=== PATIENT | male | born 1935 | race Caucasian/White ===

== ENCOUNTER 2017-12-07 01:45 | Emergency (ER) | payer MEDICARE, SELFPAY ==
[2017-12-07 01:45] VITALS: BP 208/119; PULSE 69; RESP 18; TEMP 36.6; O2SAT 96; BMI 27.6
--- NOTE | 2017-12-07 01:59 | XR_ITS ---
XR chest 2V Ordering Physician: Reggie Shelley MD Patient Age: 82 years: Male HISTORY: ITS.REASON: CHEST PAIN TECHNIQUE: COMPARISON :December 2015 FINDINGS No significant change since prior studies. Stable chest. Trace thickening of fissures on lateral view. No pleural effusion or pneumothorax. Heart micheline and mediastinal structures satisfactory.. Chest wall unremarkable. Stable anterior marginal osteophytes & early degenerative changes T-spine IMPRESSION: Stable chest with nothing definitely acute.
--- NOTE | 2017-12-07 02:04 | [facility].EDCP ---
ED Disposition Clinical Impression: Musculoskeletal chest pain Shoulder pain Qualifiers: Chronicity: acute Laterality: left Qualified Code(s): M25.512 - Pain in left shoulder Hypertension Qualifiers: Hypertension type: essential hypertension Qualified Code(s): I10 - Essential (primary) hypertension Disposition: Home, Self-Care Condition on Discharge: Good Instructions: DI for Atypical Chest Pain, DI for Shoulder Pain, DI for High Blood Pressure Additional Instructions: Call your doctor today about your blood pressure. Ibuprofen ([id number]) for pain. Additional instructions for CHEST PAIN: See your physician as soon as possible for further evaluation. Return immediately if worsening chest pain, vomiting, shortness of breath, fever, coughing of blood. Referrals: Chris Patel MD [Primary Care Provider] - - Critical Care Critical Care Time: No Attestation: On , the high probability of a clinically significant, sudden or life threatening deterioration of the following system(s) required my full and direct attention, intervention and personal management. The time I documented below is in addition to time spent performing reported procedures but includes the following listed in this critical care notation. Medical Decision Making Vital Signs: 12/07/17 01:45 12/07/17 03:31 Temperature 97.9 F Temperature Source Oral Pulse Rate [Right Brachial] 69 60 Respiratory Rate 18 16 Blood Pressure [Right Arm] 208/119 191/94 Blood Pressure Mean [Right Arm] 148 126 Blood Pressure Source [Right Arm] Automatic Cuff Automatic Cuff Blood Pressure Position [Right Arm] Supine Supine 02 Sat by Pulse Oximetry 96 97 Oxygen Delivery Method Room Air Room Air - Lab Data Lab Results 12/07/17 02:00: WBC 9.8, RBC 4.44 L, Hgb 12.5 L, Hct 39.0 L, MCV 87.9, MCH 28.1, MCHC 31.9, RDW 12.9, Plt Count 244, MPV 7.3 L, Neut % (Auto) 59.0, Lymph % (Auto) 28.8, [place] % (Auto) 8.2, Eos % (Auto) 3.4, Baso % (Auto) 0.7, Neut # (Auto) 5.8, Lymph # (Auto) 2.8, [place] # (Auto) 0.8, Eos # (Auto) 0.3, Baso # (Auto) 0.1 12/07/17 02:00: Sodium 142, Potassium 3.9, Chloride 104, Carbon Dioxide 29, Anion Gap 12.9, BUN 20 H, Creatinine 1.33 H, Estimated Creat Clear 54, Estimated GFR 51 L, Est GFR ( Amer) 62, Glucose 127 H, Calcium 8.3 L, Total Bilirubin 0.4, AST 16, ALT 19, Alkaline Phosphatase 99, Total Creatine Kinase 51, CK-MB (CK-2) < 0.5, CK-MB (CK-2) Rel Index 1.0, Troponin I < 0.02, Total Protein 7.1, Albumin 3.5, Globulin 3.6 H, Albumin/Globulin Ratio 1.0 L Result diagrams: 12/07/17 02:00 12/07/17 02:00 Orders (Tests/Meds): ED MEDICATIONS Discontinued Medications Generic Name Dose Route Start Last Admin Trade Name Niallq PRN Reason Stop Dose Admin Aspirin 324 mg 12/07/17 02:01 12/07/17 02:04 Aspirin 81mg Chewable Tablet PO 12/07/17 02:02 324 mg ONCE ONE Administration Clonidine HCl 0.1 mg 12/07/17 02:50 12/07/17 02:51 Clonidine 0.1mg Tablet PO 12/07/17 02:51 0.1 mg ONCE ONE Administration Ketorolac Tromethamine 15 mg 12/07/17 02:47 12/07/17 02:50 Toradol 30mg/Ml Vial IV 12/07/17 02:48 15 mg ONCE ONE Administration ORDERS Category Date Time Status Shoulder XR left minimum 2 views [XR shoulder LT min 2V Exams 12/07/17 02:28 Taken ] Stat XR chest 2V Stat Exams 12/07/17 01:59 Taken 12-lead EKG Request [ECG Request by /Ariadne] Stat Y 12/07/17 01:59 Ordered - Radiology Data #2 Image(s): Chest, Shoulder Image Reviewed: Yes I reviewed the patient's radiology results Preliminary Findings: Normal/NAD X-ray interpreted by Reggie Shelley M.D.: Shoulder: Mild degenerative changes, no acute disease. - ECG Data Tracing #2 EKG interpreted by Reggie Shelley MD: Rhythm: sinus Rate: 66 [place]: normal Ectopy: none Conduction: normal ST Segment Changes: none T Wave Changes: none Q Waves: none No evidence of acute ischemia or injury Reversal of guillen
[2017-12-07 02:12] LABS: Basophils # 0.1 K/mm3 (0-0.2); Basophils % 0.7 % (0.1-2.0); Eosinophils # 0.3 K/mm3 (0.0-0.4); Eosinophils % 3.4 % (0.1-12.0); Hemoglobin 12.5 g/dL (14.1-18.0); Lymphocytes # 2.8 K/mm3 (0.7-4.5); Lymphocytes % 28.8 K/mm3 (10-50); Mean Corpuscular HGB Conc 31.9 g/dL (31.8-35.4); Mean Corpuscular Hemoglobin 28.1 pg (27.0-31.2); Mean Corpuscular Volume 87.9 fl (80-94); Mean Platelet Volume 7.3 fl (7.4-10.4); Monocytes # 0.8 K/mm3 (0.1-1.0); Monocytes % 8.2 % (1.7-9.3); Neutrophils # 5.8 K/mm3 (1.8-7.8); Platelet Count 244 K/mm3 (142-424); Red Blood Count 4.44 M/mm3 (4.60-6.20); Red Cell Distribution Width 12.9 % (11.5-17.5); White Blood Count 9.8 K/mm3 (4.8-10.8)
--- NOTE | 2017-12-07 02:28 | XR_ITS ---
XR shoulder LT min 2V Ordering Physician: Reggie Shelley MD Patient Age: 82 years: Male HISTORY: ITS.REAS left shoulder pain : pain TECHNIQUE: 3 views left shoulder COMPARISON : FINDINGS The left shoulder is intact with no fracture nor dislocation. There are degenerative changes at AC joint with mild degenerative changes at the glenohumeral joint. Humeral head and neck intact. Scapula left lung apex and upper left ribs intact. Mild degenerative changes C-spine noted IMPRESSION: . Mild degenerative changes at AC joint and glenohumeral joint. No acute findings at the left shoulder. No fracture nor dislocation
[2017-12-07 02:35] LABS: Alanine Aminotransferase 19 U/L (12-78); Albumin Level 3.5 gm/dL (3.4-5.0); Alkaline Phosphatase 99 U/L (46-116); Anion Gap 12.9 mEq/L (5-15); Aspartate Amino Transferase 16 U/L (15-37); Bilirubin,Total 0.4 mg/dL (0.2-1.0); Blood Urea Nitrogen 20 mg/dL (7-18); Calcium 8.3 mg/dL (8.5-10.1); Carbon Dioxide 29 mmol/L (21.0-32.0); Chloride 104 mmol/L (98-107); Creatine Kinase 51 U/L (39-308); Creatine Kinase MB < 0.5 mg/ml (0.0-3.6); Creatinine Clearance Estimated 54 mL/min (0-300); Creatinine,Serum 1.33 mg/dL (0.70-1.30); Estimated Glomerular Filt Rate 51 ml/min (>60); GFR (African American) 62 ML/MIN (>60); Globulin 3.6 gm/dl (1.3-3.2); Glucose 127 mg/dL (74-106); Potassium 3.9 mmoL/L (3.5-5.1); Sodium 142 mmol/L (136-145); Total Protein,Serum 7.1 gm/dL (6.4-8.2); Troponin I < 0.02 ng/ml (0.00-0.06)
[2017-12-07 03:31] VITALS: BP 191/94; PULSE 60; RESP 16; O2SAT 97
[2017-12-07 03:43] VITALS: BP 183/93; PULSE 80; RESP 18; O2SAT 97
== END 2017-12-07 03:48 | disposition home or self-care (01) ==
PROVIDERS: Emergency Provider Emergency Medicine; Family Provider Family Medicine; PCP Family Medicine
DX: R07.89 Other chest pain (principal); M25.512 Pain in left shoulder; I10 Essential (primary) hypertension; E11.9 Type 2 diabetes mellitus without complications; Z79.84 Long term (current) use of oral hypoglycemic drugs; Z79.02 Long term (current) use of antithrombotics/antiplatelets; Z79.899 Other long term (current) drug therapy
CPT/HCPCS: 71046; 73030; 80053; 82550; 82553; 84484; 85025; 93005; 96374; 96375; 99284

== ENCOUNTER 2018-03-13 06:14 | Observation (INO) ==
[2018-03-13 06:31] LABS: Basophils # 0.1 K/mm3 (0-0.2); Basophils % 0.8 % (0.1-2.0); Eosinophils # 0.2 K/mm3 (0.0-0.4); Eosinophils % 3.7 % (0.1-12.0); Hematocrit 37.8 % (42.0-52.0); Hemoglobin 12.5 g/dL (14.1-18.0); Lymphocytes # 1.6 K/mm3 (0.7-4.5); Lymphocytes % 24.8 K/mm3 (10-50); Mean Corpuscular Hemoglobin 29.4 pg (27.0-31.2); Mean Platelet Volume 7.4 fl (7.4-10.4); Monocytes # 0.5 K/mm3 (0.1-1.0); Monocytes % 7.1 % (1.7-9.3); Neutrophils # 4.1 K/mm3 (1.8-7.8); Neutrophils % 63.6 % (37.0-80.0); Platelet Count 274 K/mm3 (142-424); Red Blood Count 4.24 M/mm3 (4.60-6.20); White Blood Count 6.5 K/mm3 (4.8-10.8)
--- NOTE | 2018-03-13 06:35 | Emergency Department Note ---
ED Disposition Clinical Impression: Precordial chest pain Disposition: Still a Patient Condition on Discharge: Good - Critical Care Critical Care Time: No Attestation: On , the high probability of a clinically significant, sudden or life threatening deterioration of the following system(s) required my full and direct attention, intervention and personal management. The time I documented below is in addition to time spent performing reported procedures but includes the following listed in this critical care notation. Medical Decision Making - [place] Inquiry Pt receiving controlled substance: No Vital Signs: 03/13/18 06:15 Temperature 98.7 F Temperature Source Oral Pulse Rate [Right Radial] 62 Respiratory Rate 16 Blood Pressure [Right Arm] 170/85 Blood Pressure Mean [Right Arm] 113 Blood Pressure Source [Right Arm] Automatic Cuff Blood Pressure Position [Right Arm] Standing 02 Sat by Pulse Oximetry 99 Oxygen Delivery Method Room Air - Lab Data Lab Results 03/13/18 06:20: WBC 6.5, RBC 4.24 L, Hgb 12.5 L, Hct 37.8 L, MCV 89.0, MCH 29.4 , MCHC 33.0, RDW 13.0, Plt Count 274, MPV 7.4, Neut % (Auto) 63.6, Lymph % (Auto ) 24.8, [place] % (Auto) 7.1, Eos % (Auto) 3.7, Baso % (Auto) 0.8, Neut # (Auto) 4.1, Lymph # (Auto) 1.6, [place] # (Auto) 0.5, Eos # (Auto) 0.2, Baso # (Auto) 0.1 03/13/18 06:20: Sodium 142, Potassium 3.7, Chloride 104, Carbon Dioxide 32, Anion Gap 9.7, BUN 15, Creatinine 1.34 H, Estimated Creat Clear 51, Estimated GFR 51 L, Est GFR ( Amer) 62, Glucose 149 H, Calcium 8.7, Total Bilirubin 0.4, AST 15, ALT 12, Alkaline Phosphatase 82, Troponin I < 0.02, Total Protein 7.0, Albumin 3.2 L, Globulin 3.8 H, Albumin/Globulin Ratio 0.8 L, Amylase 41, Lipase 152 Result diagrams: 03/13/18 06:20 03/13/18 06:20 Orders (Tests/Meds): ED MEDICATIONS Discontinued Medications Generic Name Dose Route Start Last Admin Trade Name Freq PRN Reason Stop Dose Admin Aspirin 324 mg 03/13/18 06:22 03/13/18 06:23 Aspirin 81mg Chewable Tablet PO 03/13/18 06:23 324 mg ONCE ONE Administration Hyoscyamine 0.125 mg 03/13/18 07:07 Levsin 0.125mg Tablet PO 03/13/18 07:08 ONCE ONE ORDERS Category Date Time Status XR chest portable Stat Exams 03/13/18 06:22 Taken Urinalysis and Microscopic Stat Lab 03/13/18 07:10 Ordered - Radiology Data #1 Image(s): Chest Image Reviewed: Yes I reviewed the patient's radiology image Preliminary Findings: Normal/NAD - ECG Data Tracing #1 EKG interpreted by Reggie Shelley MD: Rhythm: sinus Rate: 60 [place]: normal Ectopy: none Conduction: normal ST Segment Changes: none T Wave Changes: none Q Waves: none No evidence of acute ischemia or injury - Reevaluation(s) Time: 07:00 Reevaluation #1: Complains of 4/10 pain in his epigastrium, nontender to palpation. However, before I left the room the pain had already completely resolved. Medical Decision Narrative: 7:05 AM: I have discussed the case with Dr. Patel who prefers to admit the patient to the hospital. We discussed the patient's clinical information, including history, exam, laboratory and radiology results and ED course. Per hospital procedure, I will write temporary bridge inpatient orders on the patient. Specific orders requested by the admitting physician: Hyoscyamine 0.125 mg p.o. 1, serial cardiac enzymes, bland diet General Adult HPI - General Chief complaint: Chest Pain Stated complaint: chest pain Time Seen by Provider: 03/13/18 06:30 Mode of Arrival: Ambulatory Limitations: No Limitations Description of Symptoms (Recalled from ER Triage Doc. by RN): chest pain started at 10pm, feels like a heart burn and has had epigastric pressure since. no relief from maalox, current use of hydrocodone and clinda for dental infection - History of Present Illness HPI narrative: Intermittent chest pain in the area of his left breast since 10 PM last night. Lasts a few minutes at a time. Describes it in different ways, says it felt like somebody was sitting on his chest, but also says it felt like heartburn and like he needed to belch. Took some Maalox without relief. Denies shortness of breath, nausea, diaphoresis, or radiation. States he was also here for chest pain a few months ago and they "cleared my heart". States last stress test was years ago. Denies any known heart problems. Currently not having pain. - Related Data Home Medications Medication Instructions Recorded Confirmed Clopidogrel Bisulfate [Plavix 75mg 75 mg PO DAILY 12/07/17 03/13/18 Tab] Doxazosin Mesylate [Cardura 8mg 8 mg PO DAILY 12/07/17 03/13/18 Tab] Glimepiride [Amaryl] 2 mg PO DAILY 12/07/17 03/13/18 LORazepam [Ativan 0.5mg tablet] 0.5 mg PO TID 12/07/17 03/13/18 Metformin HCl [Metformin 500mg 500 mg PO BID 12/07/17 03/13/18 Tablet] Metoprolol Succinate [Toprol XL 50 mg PO DAILY 12/07/17 03/13/18 50mg Tablet] Sertraline HCl [Zoloft] 50 mg PO DAILY 12/07/17 03/13/18 Clindamycin HCl [Clindamycin 300mg 300 mg PO TID 03/13/18 03/13/18 Cap] Hydrocod/Acet 5/325 mg [[place] 0.5 tab PO Q4HP PRN 03/13/18 03/13/18 5/325mg tablet] Previous Rx's Medication Instructions Recorded Chlorhexidine Gluconate [Peridex] 15 ml PO BID #240 ml 03/09/18 Allergies Allergy/AdvReac Type Severity Reaction Status Date / Time Penicillins Allergy Intermediate I-HIVES Verified 03/13/18 06:28 Sulfa (Sulfonamide Allergy Intermediate SORES IN Verified 03/13/18 06:28 Antibiotics) MOUTH [facility] History I have reviewed the patient's past medical history: Yes Medical History: Reports:: Diabetes Mellitus Type 2, Hypertension Denies:: Cancer, Diabetes Mellitus Type 1, MRSA Comment: Seen by me in this emergency department on 12/07/17 for musculoskeletal left shoulder pain. Cardiac workup negative in the ED. Last stress test here was a normal Cardiolite stress test on 03/03/16. Other Surgeries: Yes: Hernia Repair, Other (tooth extraction) Amputation: No Fractures: No - Social History Smoking Status: Never smoker Alcohol Intake: never - Psychiatric History Expresses thoughts of harming self/others: None Suicide Plan Description: No Plan ROS Obtained: Yes All systems reviewed & no additional complaints - Constitutional Constitutional: Denies fever(s) - Cardiovascular Cardiovascular: Reports chest pain, Denies diaphoresis - Respiratory Respiratory: No dyspnea - Gastrointestinal Gastrointestingal: Denies: abdominal pain, nausea, vomiting - Genitourinary Male Genitourinary: Reports urinary frequency (2-3 wks - states "having prostate problems") Physical Exam - General General appearance: alert, in no apparent distress - Head Head exam: atraumatic, normocephalic, normal inspection - Eye Eye exam: Present: normal appearance, PERRL, EOMI - ENT ENT exam: Present: normal exam, normal oropharynx, mucous membranes moist, TM's normal bilaterally, normal external ear exam - Neck Neck exam: Present: normal inspection, full ROM, trachea midline. Absent: meningismus, lymphadenopathy - Chest Chest inspection: Present: normal inspection, symmetric chest wall rise. Absent : tenderness - Respiratory Respiratory exam: Present: normal lung sounds bilaterally. Absent: respiratory distress - Cardiovascular Cardiovascular exam: Present: regular rate, normal rhythm. Absent: JVD - Abdominal Exam Abdominal exam: Present: soft, normal bowel sounds. Absent: distention, tenderness, guarding - Extremities Exam Extremities exam: Present: normal inspection, full ROM, normal capillary refill. Absent: calf tenderness - Neurological Exam Neurological exam: Present: alert, oriented X3 - Psychiatric Psychiatric exam: Present: normal affect, normal mood - Skin Skin exam: Present: warm, dry, intact, normal color
[2018-03-13 06:48] LABS: Alanine Aminotransferase 12 U/L (12-78); Albumin Level 3.2 gm/dL (3.4-5.0); Albumin/Globulin Ratio 0.8 (1.1-1.8); Alkaline Phosphatase 82 U/L (46-116); Amylase 41 U/L (25-125); Anion Gap 9.7 mEq/L (5-15); Aspartate Amino Transferase 15 U/L (15-37); Bilirubin,Total 0.4 mg/dL (0.2-1.0); Blood Urea Nitrogen 15 mg/dL (7-18); Calcium 8.7 mg/dL (8.5-10.1); Carbon Dioxide 32 mmol/L (21.0-32.0); Chloride 104 mmol/L (98-107); Globulin 3.8 gm/dl (1.3-3.2); Glucose 149 mg/dL (74-106); Lipase 152 u/L (73-393); Potassium 3.7 mmoL/L (3.5-5.1); Sodium 142 mmol/L (136-145)
--- NOTE | 2018-03-13 08:54 | History & Physical Report ---
*Admission Date: 03/13/18 *Chief complaint: chest pain and heart burn *History of present illness: Mr. De La Cruz is an 83-year-old male with a history of hypertension, anxiety, BPH , GERD, and type 2 diabetes. He states he had a tooth pulled due to infection approximately a week ago. At that time, he was placed on clindamycin 3 times a day as well as Lortab. He states this is when all of his problems started. He has had some constipation and last night had severe heartburn before he was about to go to bed. He states he then began having chest pain that would come and go and radiated from the left side of his chest to the right chest. He went to sleep but did not sleep well due to the pain. At 6 AM this morning he decided to come to the emergency room for evaluation. He was evaluated and admitted for serial enzymes. He was given some hyoscyamine in the ER and he states this helped slightly. [facility] History Medical History: Reports:: Anxiety, BPH, Diabetes Mellitus Type 2, Gastroesophageal Reflux Disease(GERD), Hypertension, Pulmonary Embolism Denies:: Cancer, Diabetes Mellitus Type 1, MRSA Laterality Cases: Bilateral: Cataract Other Surgeries: Yes: Cholecystectomy, Colonoscopy, Hernia Repair, Other (tooth extraction) Amputation: No Fractures: No - *Social History Educational Level: Completed GED/General Educational Development Smoking Status: Never smoker Alcohol Intake: never Occupational Status: retired Housing: house Household Members: spouse - Psychiatric History Expresses thoughts of harming self/others: None Suicide Plan Description: No Plan *Family Hx:: Coronary Artery Disease, Diabetes, Heart Attack Review of Systems - Constitutional Reports fatigue, Reports weakness, Denies fever(s), Denies headache(s) - Eyes Denies blurry vision, Denies double vision - ENT Reports dizziness, Reports nasal congestion, Denies sore throat - *Cardiovascular Reports chest pain, Reports fast heart rate - *Respiratory Denies cough, Denies shortness of breath - *Gastrointestinal Reports abdominal pain (epigastric), Reports constipation, Denies loose stools, Denies nausea, Denies vomiting - *Genitourinary Reports difficulty urinating, Denies painful urination - *Musculoskeletal Denies joint pain - *Neurologic Reports dizziness, Reports weakness Meds Home Medications Medication Instructions Recorded Confirmed Type Clopidogrel Bisulfate [Plavix 75mg 75 mg PO DAILY 12/07/17 03/13/18 History Tab] Doxazosin Mesylate [Cardura 8mg 8 mg PO DAILY 12/07/17 03/13/18 History Tab] Glimepiride [Amaryl] 2 mg PO DAILY 12/07/17 03/13/18 History LORazepam [Ativan 0.5mg tablet] 0.5 mg PO TID 12/07/17 03/13/18 History Metformin HCl [Metformin 500mg 500 mg PO BID 12/07/17 03/13/18 History Tablet] Metoprolol Succinate [Toprol XL 50 mg PO DAILY 12/07/17 03/13/18 History 50mg Tablet] Sertraline HCl [Zoloft] 50 mg PO DAILY 12/07/17 03/13/18 History Clindamycin HCl [Clindamycin 300mg 300 mg PO TID 03/13/18 03/13/18 History Cap] Hydrocod/Acet 5/325 mg [[place] 0.5 tab PO Q4HP PRN 03/13/18 03/13/18 History 5/325mg tablet] Allergies Allergy/AdvReac Type Severity Reaction Status Date / Time Penicillins Allergy Intermediate I-HIVES Verified 03/13/18 06:28 Sulfa (Sulfonamide Allergy Intermediate SORES IN Verified 03/13/18 06:28 Antibiotics) MOUTH Exam Vital signs and Labs for Last 24 Hours: Temp Pulse Resp BP Pulse Ox 98.3 F 75 18 142/80 99 03/13/18 08:17 03/13/18 08:17 03/13/18 08:17 03/13/18 08:17 03/13/18 06:15 Laboratory Results - last 24 hr 03/13/18 06:20: WBC 6.5, RBC 4.24 L, Hgb 12.5 L, Hct 37.8 L, MCV 89.0, MCH 29.4 , MCHC 33.0, RDW 13.0, Plt Count 274, MPV 7.4, Neut % (Auto) 63.6, Lymph % (Auto ) 24.8, [place] % (Auto) 7.1, Eos % (Auto) 3.7, Baso % (Auto) 0.8, Neut # (Auto) 4.1, Lymph # (Auto) 1.6, [place] # (Auto) 0.5, Eos # (Auto) 0.2, Baso # (Auto) 0.1 03/13/18 06:20: Sodium 142, Potassium 3.7, Chloride 104, Carbon Dioxide 32, Anion Gap 9.7, BUN 15, Creatinine 1.34 H, Estimated Creat Clear 51, Estimated GFR 51 L, Est GFR ( Amer) 62, Glucose 149 H, Calcium 8.7, Total Bilirubin 0.4, AST 15, ALT 12, Alkaline Phosphatase 82, Troponin I < 0.02, Total Protein 7.0, Albumin 3.2 L, Globulin 3.8 H, Albumin/Globulin Ratio 0.8 L, Amylase 41, Lipase 152 03/13/18 08:00: Troponin I < 0.02 I & O for Last 24 hours: Intake & Output 03/10/18 03/11/18 03/12/18 03/13/18 11:59 11:59 11:59 11:59 Weight 192 lb - Constitutional no acute distress - *Routine HEENT Exam Head: Present: normocephalic, atraumatic Eye: Present: EOMI, PERRL ENT: Present: mucous membranes moist - *Routine Neck Exam Present: supple, full ROM - *Routine Respiratory Exam Present: CTA bilaterally - *Routine Cardiovascular Exam Present: RRR - *Routine Abdominal Exam Present: soft, normoactive bowel sounds. Absent: tenderness - *Routine Extremities Exam Absent: edema - *Routine Skin Exam Present: intact - *Routine Neurological Exam Present: alert, oriented X3 H&P: Result - Labs Labs: Short CBC 03/13/18 Range/Units 06:20 WBC 6.5 (4.8-10.8) K/mm3 Hgb 12.5 L (14.1-18.0) g/dL Hct 37.8 L (42.0-52.0) % Plt Count 274 (142-424) K/mm3 BMP 03/13/18 06:20 Sodium 142 Potassium 3.7 Chloride 104 Carbon Dioxide 32 BUN 15 Creatinine 1.34 H Glucose 149 H Calcium 8.7 Cardiac Enzymes 03/13/18 03/13/18 Range/Units 06:20 08:00 Troponin I < 0.02 < 0.02 (0.00-0.06) ng/ml Liver Function 03/13/18 Range/Units 06:20 Total Bilirubin 0.4 (0.2-1.0) mg/dL AST 15 (15-37) U/L ALT 12 (12-78) U/L Alkaline Phosphatase 82 (46-116) U/L Albumin 3.2 L (3.4-5.0) gm/dL - Impressions CXR - pending Assessment and Plan (1) Precordial chest pain Current visit: Yes Status: Acute Category: Medical Code(s): R07.2 - Precordial pain (2) GERD (gastroesophageal reflux disease) Current visit: Yes Status: Chronic Category: Medical Code(s): K21.9 - Gastro-esophageal reflux disease without esophagitis (3) Anxiety Current visit: Yes Status: Chronic Category: Medical Code(s): F41.9 - Anxiety disorder, unspecified (4) Type 2 diabetes mellitus Current visit: Yes Status: Chronic Category: Medical Code(s): E11.9 - Type 2 diabetes mellitus without complications (5) History of pulmonary embolism Current visit: Yes Status: Chronic Category: Medical Code(s): Z86.711 - Personal history of pulmonary embolism (6) Hypertension Current visit: No Status: Chronic Category: Medical Code(s): I10 - Essential (primary) hypertension (7) S/P tooth extraction Current visit: No Status: Acute Category: Surgical Code(s): K08.409 - Partial loss of teeth, unspecified cause, unspecified class - Assessment and plan all Dx Assessment and Plan for all problems:: Will give patient a dose of protonix today. His chest pain appears to be due to an episode of GERD. He has been on clindamycin as well as Lortab for the past week which could easily cause GI upset. Will await serial enzymes.
--- NOTE | 2018-03-13 13:50 | Pharmacy Consult Notes ---
[facility] Pharmacy VTE Monitoring - Patient Demographics Admission date: 03/13/18 Report Date: 03/13/18 Time: 13:50 Allergies/Adverse Reactions: Patient Allergies Penicillins Allergy (Intermediate, Verified 03/13/18 06:28) I-HIVES Sulfa (Sulfonamide Antibiotics) Allergy (Intermediate, Verified 03/13/18 06:28) SORES IN MOUTH Height: 1.8 m Weight: 89.811 kg Patient Problems: Current Active Problems Precordial chest pain (Acute) GERD (gastroesophageal reflux disease) (Chronic) Anxiety (Chronic) Type 2 diabetes mellitus (Chronic) History of pulmonary embolism (Chronic) - VTE Risk Labs: VTE Related Lab Results Hgb 12.5 g/dL (14.1-18.0) L 03/13/18 06:20 Hct 37.8 % (42.0-52.0) L 03/13/18 06:20 Plt Count 274 K/mm3 (142-424) 03/13/18 06:20 BUN 15 mg/dL (7-18) 03/13/18 06:20 Creatinine 1.34 mg/dL (0.70-1.30) H 03/13/18 06:20 Estimated Creat Clear 51 mL/min (0-300) 03/13/18 06:20 VTE Score: 1 VTE Risk Level: Very Low Risk - Prophylaxis Location of Applied Device: Refused - VTE Diagnosis Confirmed Comment: VAIBHAV HOFFMAN ORDERED
[2018-03-13 20:54] LABS: Appearance,Urine CLEAR (Clear); Bilirubin,Urine Negative (Negative); Blood, Urine TRACE-L (Negative); Color,Urine YELLOW (Yellow); Glucose,Urine (UA) Negative (Negative); Ketones,Urine Negative (Negative); Leukocyte Esterase,Urine Negative (Negative); Microscopic, Urine URINE MICROSCOPIC (MICROSCOPIC); Protein,Urine Negative (Negative); Urobilinogen,Urine 0.2 EU/dl (0.2)
--- NOTE | 2018-03-14 07:57 | Progress Note ---
Internal Medicine - PN: Subj *Date: 03/14/18 *Time: 07:57 Interval history: Rested well. No complaint of chest pain or SOA. He thinks his symptoms are GI in origin Exam Vital signs and Labs for Last 24 Hours: Temp Pulse Resp BP Pulse Ox 98.4 F 60 20 148/90 96 03/14/18 07:33 03/14/18 07:33 03/14/18 07:33 03/14/18 07:33 03/14/18 07:33 Laboratory Results - last 24 hr 03/13/18 08:00: Troponin I < 0.02 03/13/18 10:45: Troponin I 0.02 03/13/18 12:18: POC Glucose 213 H 03/13/18 13:46: Troponin I < 0.02 03/13/18 17:19: POC Glucose 159 H 03/13/18 19:55: POC Glucose 157 H 03/13/18 20:45: Urine Color Yellow, Urine Appearance Clear, Urine pH 7.0, Ur Specific [place] 1.010, Urine Protein Negative, Urine Glucose (UA) Negative, Urine Ketones Negative, Urine Blood Trace-l, Urine Nitrate Negative, Urine Bilirubin Negative, Urine Urobilinogen 0.2, Ur Leukocyte Esterase Negative, Urine RBC 5-10 03/14/18 05:43: POC Glucose 131 H I & O for Last 24 hours: Intake & Output 03/11/18 03/12/18 03/13/18 03/14/18 11:59 11:59 11:59 11:59 Intake Total 150 / 150 Output Total 200 / 200 Balance -50 / -50 Weight 198 lb 198 lb - Constitutional Comments: sitting up in chair, NAD. - *Routine Respiratory Exam Present: CTA bilaterally - *Routine Cardiovascular Exam Present: RRR - *Routine Extremities Exam Absent: edema Assessment and Plan (1) Precordial chest pain Status: Acute Category: Medical Code(s): R07.2 - Precordial pain (2) GERD (gastroesophageal reflux disease) Status: Chronic Category: Medical Code(s): K21.9 - Gastro-esophageal reflux disease without esophagitis (3) Anxiety Status: Chronic Category: Medical Code(s): F41.9 - Anxiety disorder, unspecified (4) Type 2 diabetes mellitus Status: Chronic Category: Medical Code(s): E11.9 - Type 2 diabetes mellitus without complications (5) History of pulmonary embolism Status: Chronic Category: Medical Code(s): Z86.711 - Personal history of pulmonary embolism (6) Hypertension Status: Chronic Category: Medical Code(s): I10 - Essential (primary) hypertension (7) S/P tooth extraction Status: Acute Category: Surgical Code(s): K08.409 - Partial loss of teeth, unspecified cause, unspecified class - Assessment and plan all Dx Assessment and Plan for all problems:: He is stable for discharge today and will return to [facility] tomorrow for GXT as arranged by Dr. Patel
--- NOTE | 2018-03-15 15:20 | Discharge Summary ---
General - General Admission date:: 03/13/18 <SupriyaMisael Sotero - 03/21/18 11:21> 03/13/18 <Meg Khan - 03/15/18 15:20> Discharge date: 03/14/18 <Meg Khan - 03/15/18 15:20> HPI HPI: Mr. De La Cruz is an 83-year-old male with a history of hypertension, anxiety, BPH , GERD, and type 2 diabetes. He states he had a tooth pulled due to infection approximately a week ago. At that time, he was placed on clindamycin 3 times a day as well as Lortab. He states this is when all of his problems started. He has had some constipation and last night had severe heartburn before he was about to go to bed. He states he then began having chest pain that would come and go and radiated from the left side of his chest to the right chest. He went to sleep but did not sleep well due to the pain. At 6 AM this morning he decided to come to the emergency room for evaluation. He was evaluated and admitted for serial enzymes. He was given some hyoscyamine in the ER and he states this helped slightly. <Meg Khan - 03/15/18 15:20> Hospital Course Hospital Course: His CXR was normal and cardiac enzymes were normal. He was started on levsin and protonix as his pain appeared to be GI in nature. He had been on clindamycin as well as Lortab which could easily cause GI upset. His chest pain resolved and he was stable to be discharged home and will f/u on for a stress test. <Meg Khan - 03/15/18 15:20> Objective Vital signs: Temp Pulse Resp BP Pulse Ox 98.4 F 60 20 148/90 96 03/14/18 07:33 03/14/18 08:00 03/14/18 07:33 03/14/18 07:33 03/14/18 07:33 <Misael Epps - 03/21/18 11:21> Temp Pulse Resp BP Pulse Ox 98.4 F 60 20 148/90 96 03/14/18 07:33 03/14/18 08:00 03/14/18 07:33 03/14/18 07:33 03/14/18 07:33 <Meg Khan - 03/15/18 15:20> Narrative: - Constitutional no acute distress - *Routine HEENT Exam Head: Present: normocephalic, atraumatic Eye: Present: EOMI, PERRL ENT: Present: mucous membranes moist - *Routine Neck Exam Present: supple, full ROM - *Routine Respiratory Exam Present: CTA bilaterally - *Routine Cardiovascular Exam Present: RRR - *Routine Abdominal Exam Present: soft, normoactive bowel sounds. Absent: tenderness - *Routine Extremities Exam Absent: edema - *Routine Skin Exam Present: intact - *Routine Neurological Exam Present: alert, oriented X3 <Meg Khan - 03/15/18 15:20> DS: Diagnosis - Discharge Diagnosis (1) Precordial chest pain Status: Resolved (2) GERD (gastroesophageal reflux disease) Status: Chronic (3) Anxiety Status: Chronic (4) Type 2 diabetes mellitus Status: Chronic (5) History of pulmonary embolism Status: Chronic (6) Hypertension Status: Chronic (7) S/P tooth extraction Status: Acute <Meg Khan - 03/15/18 15:15> (1) Precordial chest pain Status: Resolved (2) GERD (gastroesophageal reflux disease) Status: Chronic (3) Anxiety Status: Chronic (4) Type 2 diabetes mellitus Status: Chronic (5) History of pulmonary embolism Status: Chronic (6) Hypertension Status: Chronic (7) S/P tooth extraction Status: Acute <Misael Epps - 03/21/18 11:21> Discharge Plan - Patient Discharge Instructions ACTIVITY: Continue current activity <Meg Khan - 03/15/18 15:20> DIET: continue same diet <Meg Khan - 03/15/18 15:20> Additional Instructions: RETURN TO [place] ON Thursday03/15/18 FOR OUTPATIENT STRESS TEST <Misael Epps - 03/21/18 11:21> Patient Instructions: DI for Gastroesophageal Reflux Disease (GERD) <Misael Epps - 03/21/18 11:21> Forms: <Misael Epps - 03/21/18 11:21> - Follow up Plan Follow up with: Chris Patel MD [Primary Care Provider] - 03/17/18 < Misael Epps - 03/21/18 11:21> Disposition: Home, Self-Care <Misael Epps - 03/21/18 11:21> Home Medications: Home Medications Medication Instructions Recorded Confirmed Type Clopidogrel Bisulfate [Plavix 75mg 75 mg PO DAILY 12/07/17 03/13/18 History Tab] Glimepiride [Amaryl] 2 mg PO DAILY 12/07/17 03/13/18 History LORazepam [Ativan 0.5mg tablet] 0.5 mg PO TID 12/07/17 03/13/18 History Metoprolol Succinate [Toprol XL 50 mg PO DAILY 12/07/17 03/13/18 History 50mg Tablet] Sertraline HCl [Zoloft] 50 mg PO DAILY 12/07/17 03/13/18 History Doxazosin Mesylate [Cardura 4mg 4 mg PO DAILY 03/13/18 03/13/18 History tablet] Hydrocod/Acet 5/325 mg [[place] 0.5 tab PO Q4HP PRN 03/13/18 03/13/18 History 5/325mg tablet] Metformin HCl 1,000 mg PO BID 03/13/18 03/13/18 History <Misael Epps - 03/21/18 11:21> Prescriptions/Medication Reconciliation: Continue Clopidogrel Bisulfate [Plavix 75mg Tab] 75 mg PO DAILY Metoprolol Succinate [Toprol XL 50mg Tablet] 50 mg PO DAILY Sertraline HCl [Zoloft] 50 mg PO DAILY LORazepam [Ativan 0.5mg tablet] 0.5 mg PO TID Glimepiride [Amaryl] 2 mg PO DAILY Chlorhexidine Gluconate [Peridex] 15 ml PO BID #240 ml Doxazosin Mesylate [Cardura 4mg tablet] 4 mg PO DAILY Hydrocod/Acet 5/325 mg [[place] 5/325mg tablet] 0.5 tab PO Q4HP PRN PRN Reason: dental pain Metformin HCl 1,000 mg PO BID Discontinued Clindamycin HCl [Clindamycin 300mg Cap] 300 mg PO TID <Misael Epps - 03/21/18 11:21> - Additional Information Additional Information: Concur with plan for discharge as outlined. <Misael Epps - 03/21/18 11:21>
== END 2018-03-14 08:55 | disposition home or self-care (01) ==
LOC: ER 06:14 → 2ND 06:14
PROVIDERS: ADMIT Family Medicine; ATTEND Family Medicine
CPT/HCPCS: 36415; 71010; 71045; 80053; 81001; 82150; 82962; 83690; 84484; 85025; 93005; 96365; 99284; G0378

== ENCOUNTER → 2018-03-15 10:54 | Outpatient (CLI) | payer MEDICARE, SELFPAY ==
--- NOTE | 2018-03-15 12:00 | NM_ITS ---
SPECT MYOCARDIAL PERFUSION SCAN, REST AND STRESS: EXERCISE STRESS: [facility] REVIEW QGS EF AND WALL MOTION EVALUATION: QPS - PERFUSION EVALUATION: HISTORY: Chest pain, Syncope, Fatigue, HTN, DM PROCEDURE: Rest imaging performed after administration of9.61 millicuries Tc MIBI. Dose administered at11:35 a.m., with imaging thereafter. Stress imaging was then performed following5 minutes 15 seconds of exercise stress. The patient achieved a heart [id number] with projected heart rate of116 . Resting BP171/94 with stress 188/80. At maximum exercise stress,29.0 millicuries Tc MIBI administered at12:55 a.m. with [id number] minutes thereafter. FINDINGS: Perfusion Evaluation: The single slice spect images as well as the [facility] bull's-eye data summary were reviewed. Wall Motion and Ejection Fraction Evaluation: Gated SPECT review and analysis used to evaluate these features. There is a 62 % left ventricular ejection fraction. There seems to be good wall motion Uniform myocardial activity at both stress and rest. Gated images calculated ejection fraction 62% with normal wall motion IMPRESSION: No scintigraphic evidence of exercise-induced myocardial ischemia with normal ejection fraction normal wall motion
--- NOTE | 2018-03-15 12:43 | HMH.ITSHM ---
LEVAQUIN WARFARIN RANOLAZINE POTASSIUM PANTOPRAZOLE LEVOTHYROXINE FUROSEMIDE DULOXETINE DILTIAZEM VITAMIN D3 BISOPROLOL ALPRAZOLAM DIGOXIN
== END ==
PROVIDERS: PCP Family Medicine; Visit Provider Family Medicine
DX: R07.9 Chest pain, unspecified (principal)
CPT/HCPCS: 78452; 93017; A9502

== ENCOUNTER → 2018-03-26 09:28 | Outpatient (CLI) | payer MEDICARE, SELFPAY ==
--- NOTE | 2018-03-26 09:39 | FL_ITS ---
EXAM: Barium swallow/esophagram. INDICATION: ITS.REASON: DYSPHAGIA ORDERING PHYSICIAN: Chris Patel MD PATIENT AGE: 83 years COMPARISON: None TECHNIQUE: In the upright position the patient was observed to swallow barium in both the AP and lateral view. The cervical esophagus was examined under fluoroscopy with images obtained. The patient was then placed prone in the right anterior oblique position and was observed to swallow barium with Valsalva technique . FLUOROSCOPY TIME: 1 minute and 8 seconds FINDINGS: There was no evidence of aspiration. No annular constricting lesions or fixed filling defects are evident. There is spasm of the GE junction was relieved during the course of the exam. No evidence of hiatal hernia. No mucosal lesions apparent IMPRESSION: Spasm at the GE junction otherwise negative barium swallow
== END ==
PROVIDERS: Family Provider Family Medicine; PCP Family Medicine; Visit Provider Family Medicine
DX: R13.10 Dysphagia, unspecified (principal)
CPT/HCPCS: 74220

== ENCOUNTER → 2018-06-30 15:48 | Outpatient (CLI) | payer MEDICARE, SELFPAY ==
--- NOTE | 2018-06-30 16:01 | XR_ITS ---
XR hip LT 2-3V w/pelvis HISTORY: ITS.REASON: LEFT HIP PAIN ORDERING PHYSICIAN: Chris Patel MD PATIENT AGE: 83 years COMPARISON: None FINDINGS: No fracture or dislocation is evident. No significant degenerative change. No lytic or blastic change. Unremarkable soft tissues IMPRESSION: Negative hip
== END ==
PROVIDERS: PCP Family Medicine; Visit Provider Family Medicine
DX: M25.552 Pain in left hip (principal)
CPT/HCPCS: 73502

== ENCOUNTER 2019-02-27 11:56 | Observation (INO) ==
--- NOTE | 2019-02-27 12:06 | Emergency Department Note ---
ED Disposition Clinical Impression: Chest pain Qualifiers: Chest pain type: precordial pain Qualified Code(s): R07.2 - Precordial pain Disposition: Admitted as Observation Condition on Discharge: Good - Critical Care Critical Care Time: No Attestation: On , the high probability of a clinically significant, sudden or life threatening deterioration of the following system(s) required my full and direct attention, intervention and personal management. The time I documented below is in addition to time spent performing reported procedures but includes the following listed in this critical care notation. Medical Decision Making - Medical Records Medical records reviewed: Yes: I reviewed the patient's medical records. - Henrique Inquiry Pt receiving controlled substance: No Vital Signs: 02/27/19 12:04 02/27/19 12:26 02/27/19 13:00 Temperature 98.0 F Temperature Source Oral Pulse Rate [Left Radial] 95 H 78 72 Respiratory Rate 18 16 18 Blood Pressure [Right Arm] 118/72 120/75 127/74 Blood Pressure Mean [Right Arm] 87 90 91 Blood Pressure Source [Right Arm] Automatic Cuff Automatic Cuff Automatic Cuff Blood Pressure Position [Right Arm] Sitting Sitting Sitting 02 Sat by Pulse Oximetry 96 93 L 95 Oxygen Delivery Method Room Air Room Air Room Air 02/27/19 13:30 Temperature Temperature Source Pulse Rate [Left Radial] 66 Respiratory Rate 18 Blood Pressure [Right Arm] 146/75 H Blood Pressure Mean [Right Arm] 98 Blood Pressure Source [Right Arm] Automatic Cuff Blood Pressure Position [Right Arm] Sitting 02 Sat by Pulse Oximetry 92 L Oxygen Delivery Method Room Air - Lab Data Lab results reviewed: Yes: I reviewed the patient's lab results. Lab Results 02/27/19 12:00: WBC 8.7, RBC 4.65, Hgb 13.6 L, Hct 40.9 L, MCV 88.0, MCH 29.3, MCHC 33.3, RDW 12.7, Plt Count 283, MPV 7.0 L, Neut % (Auto) 67.8, Lymph % (Auto) 21.3, Lynn % (Auto) 7.3, Eos % (Auto) 2.7, Baso % (Auto) 0.8, Neut # (Auto) 5.9, Lymph # (Auto) 1.9, Lynn # (Auto) 0.6, Eos # (Auto) 0.2, Baso # (Auto) 0.1 02/27/19 12:00: Sodium 139, Potassium 3.3 L, Chloride 98, Carbon Dioxide 28, Anion Gap 16.3 H, BUN 22 H, Creatinine 2.21 H, Estimated Creat Clear 29, Estimated GFR 29 L, Est GFR ( Amer) 34 L, Glucose 209 H, Calcium 8.9, Total Bilirubin 0.8, AST 16, ALT 19, Alkaline Phosphatase 103, Troponin I < 0.02, Total Protein 7.7, Albumin 3.6, Globulin 4.1 H, Albumin/Globulin Ratio 0.9 L, Lipase 163 Result diagrams: 02/27/19 12:00 02/27/19 12:00 Orders (Tests/Meds): ED MEDICATIONS Discontinued Medications Generic Name Dose Route Start Last Admin Trade Name Freq PRN Reason Stop Dose Admin Aspirin 324 mg 02/27/19 12:04 02/27/19 12:12 Aspirin 81mg Chewable Tablet PO 02/27/19 12:05 324 mg ONCE ONE Administration ORDERS Category Date Time Status 12-lead EKG Request [ECG Request by /Ariadne] Stat Y 02/27/19 11:57 Ordered ECG Request by /Ariadne Stat Y 02/27/19 12:03 Ordered - Radiology Data #1 Image(s): Chest Image Reviewed: Yes I have reviewed radiologist's interpretation Preliminary Findings: Normal/NAD - ECG Data Tracing #1 I reviewed this ECG and interpreted as documented below: Normal Sinus Rhythm: No (st 101 no stemi) Medical Decision Narrative: admit d/w Dr Hassan General Adult HPI - General Stated complaint: Chest Pain Time Seen by Provider: 02/27/19 12:04 Source of Information: Patient - History of Present Illness HPI narrative: mild to mod off and on chest pain tight rad to back for one day, gone now, no injury, no fever - Related Data Home Medications Medication Instructions Recorded Confirmed LORazepam [Ativan 0.5mg 0.5 mg PO TID 12/07/17 02/27/19 tablet] Metoprolol Succinate [Toprol XL 50 mg PO DAILY 12/07/17 02/27/19 50mg Tablet] Sertraline HCl [Zoloft] 50 mg PO DAILY 12/07/17 02/27/19 Hydrocod/Acet 5/325 mg [[place] 0.5 tab PO Q4HP PRN 03/13/18 02/27/19 5/325mg tablet] Metformin HCl 1,000 mg PO BID 03/13/18 02/27/19 Allergies Allergy/AdvReac Type Severity Reaction Status Date / Time Penicillins Allergy Intermediate I-HIVES Verified 03/13/18 06:28 Sulfa (Sulfonamide Allergy Intermediate SORES IN Verified 03/13/18 06:28 Antibiotics) [facility] History - Hepatitis A Screen Attestation statement:: This patient has been screened for Hepatitis A risk factors. Medical History: Reports:: Anxiety, BPH, Diabetes Mellitus Type 2, Gastroesophageal Reflux Disease(GERD), Hypertension, Pulmonary Embolism Denies:: Cancer, Diabetes Mellitus Type 1, MRSA Comment: Seen by me in this emergency department on 12/07/17 for musculoskeletal left shoulder pain. Cardiac workup negative in the ED. Last stress test here was a normal Cardiolite stress test on 03/03/16. Other Surgeries: Yes: Cholecystectomy, Colonoscopy, Hernia Repair, Other (tooth extraction) Amputation: No Fractures: No - Social History Smoking Status: Never smoker Alcohol Intake: never Occupational Status: retired Housing: house Household Members: spouse - Psychiatric History Pschychiatric History:: Reports:: Anxiety Family Hx:: Coronary Artery Disease, Diabetes, Heart Attack ROS Obtained: Yes Systems reviewed as appropriate & no additional complaints - Constitutional Constitutional: Denies fever(s) - Eyes Eyes: Denies change in vision - ENT Ears, Nose, Mouth, and Throat: Denies neck pain - Cardiovascular Cardiovascular: Reports chest pain - Respiratory Respiratory: No dyspnea - Gastrointestinal Gastrointestingal: Denies: abdominal pain - Musculoskeletal Musculoskeletal: Denies neck pain - Integumentary/Breasts Skin/Breast: Denies rash - Neurologic Neurologic: Denies dizziness Physical Exam - General General appearance: alert, in no apparent distress - Head Head exam: atraumatic - Eye Eye exam: Present: normal appearance - ENT ENT exam: Present: normal exam - Neck Neck exam: Present: normal inspection - Chest Chest inspection: Present: normal inspection - Respiratory Respiratory exam: Present: normal lung sounds bilaterally - Cardiovascular Cardiovascular exam: Present: regular rate, normal rhythm - Abdominal Exam Abdominal exam: Present: soft. Absent: tenderness - Extremities Exam Extremities exam: Present: full ROM. Absent: pedal edema - Back Exam Back exam: Absent: vertebral tenderness - Neurological Exam Neurological exam: Present: alert, oriented X3 - Psychiatric Psychiatric exam: Present: normal affect, normal mood - Skin Skin exam: Present: warm, dry
[2019-02-27 12:14] LABS: Basophils # 0.1 K/mm3 (0-0.2); Basophils % 0.8 % (0.1-2.0); Eosinophils # 0.2 K/mm3 (0.0-0.4); Eosinophils % 2.7 % (0.1-12.0); Hematocrit 40.9 % (42.0-52.0); Hemoglobin 13.6 g/dL (14.1-18.0); Lymphocytes # 1.9 K/mm3 (0.7-4.5); Lymphocytes % 21.3 % (10-50); Mean Corpuscular HGB Conc 33.3 g/dL (31.8-35.4); Mean Corpuscular Hemoglobin 29.3 pg (27.0-31.2); Monocytes # 0.6 K/mm3 (0.1-1.0); Monocytes % 7.3 % (1.7-9.3); Neutrophils # 5.9 K/mm3 (1.8-7.8); Neutrophils % 67.8 % (37.0-80.0); Platelet Count 283 K/mm3 (142-424); Red Blood Count 4.65 M/mm3 (4.60-6.20); Red Cell Distribution Width 12.7 % (11.5-17.5); White Blood Count 8.7 K/mm3 (4.8-10.8)
[2019-02-27 12:25] LABS: Alanine Aminotransferase 19 U/L (12-78); Albumin Level 3.6 gm/dL (3.4-5.0); Albumin/Globulin Ratio 0.9 (1.1-1.8); Alkaline Phosphatase 103 U/L (46-116); Anion Gap 16.3 mEq/L (5-15); Aspartate Amino Transferase 16 U/L (15-37); Bilirubin,Total 0.8 mg/dL (0.2-1.0); Blood Urea Nitrogen 22 mg/dL (7-18); Calcium 8.9 mg/dL (8.5-10.1); Carbon Dioxide 28 mmol/L (21.0-32.0); Chloride 98 mmol/L (98-107); Globulin 4.1 gm/dl (1.3-3.2); Glucose 209 mg/dL (74-106); Lipase 163 u/L (73-393); Potassium 3.3 mmoL/L (3.5-5.1); Sodium 139 mmol/L (136-145); Total Protein,Serum 7.7 gm/dL (6.4-8.2)
[2019-02-27 19:20] LABS: Creatine Kinase 41 U/L (39-308)
[2019-02-28 07:05] LABS: Anion Gap 10.9 mEq/L (5-15); Calcium 8.2 mg/dL (8.5-10.1)
[2019-02-28 07:12] LABS: Potassium 2.9 mmoL/L (3.5-5.1)
--- NOTE | 2019-02-28 09:13 | History & Physical Report ---
*Admission Date: 02/28/19 *Chief complaint: Chest discomfort (jittery chest ); severe back and neck pain *History of present illness: Mr. De La Cruz is an 83-year-old male with a history of hypertension, anxiety, BPH, GERD, and type 2 diabetes mellitus who presented to [facility] emergency room after feeling chest discomfort. He stated it started the previous day with anxiety and the feeling of jitteriness in his chest. He also states he had severe back and neck pain. He denies shortness of breath, nausea, fever, and stomach issues. The discomfort persisted and thus after uatsdin he presented to the emergency room. He received some IV fluids in the emergency room which made him feel better. He was then admitted to the hospital for observation and cardiac consultation. This a.m. patient does feel better. States the IV fluids helped.. He still has some jitteriness in his chest and some back and neck pain. He has periodic dizziness and complains of bilateral hand tremors. Troponin I's have been normal. He will receive potassium for a potassium of 2.9 this a.m. [facility] History Medical History: Reports:: Anxiety, BPH, Diabetes Mellitus Type 2, Gastroesophageal Reflux Disease(GERD), Hypertension, Pulmonary Embolism Denies:: Cancer, Diabetes Mellitus Type 1, MRSA *Have you ever received a pneumonia vaccine?: Yes *Have you received a flu vaccine this season?: Yes Other Medical History: Reports: Arthritis Laterality Cases: Bilateral: Cataract Other Surgeries: Yes: Cholecystectomy, Colonoscopy, Hernia Repair (X3), Other (tooth extraction) Amputation: No Fractures: No - *Social History Educational Level: Completed GED/General Educational Development Smoking Status: Never smoker Alcohol Intake: never *Occupational Status:: retired Housing: house Household Members: spouse *Travel in the last 8 weeks: None - Psychiatric History Expresses thoughts of harming self/others: None Suicide Plan Description: No Plan Pschychiatric History:: Reports:: Anxiety Family Hx:: Coronary Artery Disease, Diabetes, Heart Attack Review of Systems - Constitutional Denies fever(s), Denies headache(s) - Eyes Denies change in vision - ENT Denies ear pain, Denies sore throat - *Cardiovascular Reports chest pain, Denies shortness of breath - *Respiratory Denies chest congestion, Denies cough, Denies shortness of breath - *Gastrointestinal Denies heartburn, Denies vomiting blood, Denies nausea, Denies vomiting - *Genitourinary Denies difficulty urinating - *Musculoskeletal Denies abnormal walking - *Neurologic Reports dizziness, Reports headache(s), Reports tremor(s) (Bilateral hands) - Psychiatric Reports anxiety Meds Home Medications Medication Instructions Recorded Confirmed Type LORazepam [Ativan 0.5mg 0.5 mg PO TID 12/07/17 02/27/19 History tablet] Metoprolol Succinate [Toprol XL 50 mg PO DAILY 12/07/17 02/27/19 History 50mg Tablet] Cholecalciferol (Vitamin D3) 1,000 unit PO DAILY 02/27/19 02/27/19 History [Vitamin D3 1,000 Unit Cap] Cyanocobalamin (Vitamin B-12) 1,000 mcg PO DAILY 02/27/19 02/27/19 History [Vitamin B-12 1000mcg Tablet] Doxazosin Mesylate [Cardura 4mg 4 mg PO HS 02/27/19 02/27/19 History tablet] L.acidoph,Paracasei, B.lactis 1 each PO DAILY 02/27/19 02/27/19 History [Probiotic] hydroCHLOROthiazide 12.5 mg PO QODHS 02/27/19 02/27/19 History [Hydrochlorothiazide 12.5mg Tab] Clopidogrel Bisulfate [Clopidogrel 75 mg PO DAILY 02/28/19 02/28/19 History 75mg Tab] Glimepiride [Amaryl] 2 mg PO DAILY 02/28/19 02/28/19 History Sertraline HCl [Zoloft 100mg 50 mg PO DAILY 02/28/19 02/28/19 History tablet] Allergies Allergy/AdvReac Type Severity Reaction Status Date / Time Penicillins Allergy Intermediate I-HIVES Verified 03/13/18 06:28 Sulfa (Sulfonamide Allergy Intermediate SORES IN Verified 03/13/18 06:28 Antibiotics) MOUTH Exam Vital signs and Labs for Last 24 Hours: Temp Pulse Resp BP Pulse Ox 98.9 F 82 17 141/64 H 95 02/28/19 08:00 02/28/19 08:00 02/28/19 08:00 02/28/19 08:00 02/28/19 08:00 Laboratory Results - last 24 hr 02/27/19 12:00: WBC 8.7, RBC 4.65, Hgb 13.6 L, Hct 40.9 L, MCV 88.0, MCH 29.3, MCHC 33.3, RDW 12.7, Plt Count 283, MPV 7.0 L, Neut % (Auto) 67.8, Lymph % (Auto) 21.3, Bertie % (Auto) 7.3, Eos % (Auto) 2.7, Baso % (Auto) 0.8, Neut # (Auto) 5.9, Lymph # (Auto) 1.9, Bertie # (Auto) 0.6, Eos # (Auto) 0.2, Baso # (Auto) 0.1 02/27/19 12:00: Sodium 139, Potassium 3.3 L, Chloride 98, Carbon Dioxide 28, Anion Gap 16.3 H, BUN 22 H, Creatinine 2.21 H, Estimated Creat Clear 29, Estimated GFR 29 L, Est GFR ( Amer) 34 L, Glucose 209 H, Calcium 8.9, Total Bilirubin 0.8, AST 16, ALT 19, Alkaline Phosphatase 103, Troponin I < 0.02, Total Protein 7.7, Albumin 3.6, Globulin 4.1 H, Albumin/Globulin Ratio 0.9 L, Lipase 163 02/27/19 17:28: POC Glucose 158 H 02/27/19 18:45: Total Creatine Kinase 41, CK-MB (CK-2) < 0.5, CK-MB (CK-2) Rel Index 1.2, Troponin I < 0.02 02/27/19 21:38: POC Glucose 218 H 02/28/19 05:47: Sodium 143, Potassium 2.9 L*, Chloride 105, Carbon Dioxide 30, Anion Gap 10.9, BUN 21 H, Creatinine 1.67 H D, Estimated Creat Clear 39, Estimated GFR 39 L, Est GFR ( Amer) 48 L D, Glucose 146 H D, Calcium 8.2 L 02/28/19 06:31: POC Glucose 136 H I & O for Last 24 hours: Intake & Output 02/25/19 02/26/19 02/27/19 02/28/19 11:59 11:59 11:59 11:59 Intake Total 1080 / 1080 Output Total 250 / 250 Balance 830 / 830 Weight 186 lb 5 oz Radiology Reports for the Last 24 Hours: 02/27/2019 chest x-ray IMPRESSION: Nonacute chest findings - Constitutional no acute distress Comments: Sitting on the bedside eating his breakfast. Appears comfortable. - *Routine HEENT Exam Head: Present: normocephalic, atraumatic Eye: Present: PERRL. Absent: conjunctival icterus, scleral injection - *Routine Neck Exam Absent: carotid bruit, lymphadenopathy, thyromegaly - *Routine Respiratory Exam Present: CTA bilaterally (Anteriorly and posteriorly) - *Routine Cardiovascular Exam Present: RRR - *Routine Abdominal Exam Present: soft, normoactive bowel sounds. Absent: tenderness - *Routine Extremities Exam Absent: edema, calf tenderness - *Routine Neurological Exam Present: alert, oriented X3 Assessment and Plan (1) Chest pain Current visit: Yes Status: Acute Qualifiers: Chest pain type: precordial pain Qualified Code(s): R07.2 - Precordial pain Category: Medical Code(s): R07.9 - Chest pain, unspecified (2) Anxiety Current visit: No Status: Acute Category: Medical Code(s): F41.9 - Anxiety disorder, unspecified (3) GERD (gastroesophageal reflux disease) Current visit: No Status: Chronic Category: Medical Code(s): K21.9 - Gastro-esophageal reflux disease without esophagitis (4) Hypertension Current visit: No Status: Chronic Category: Medical Code(s): I10 - Essential (primary) hypertension (5) Type 2 diabetes mellitus Current visit: No Status: Chronic Category: Medical Code(s): E11.9 - Type 2 diabetes mellitus without complications (6) Hypokalemia Current visit: Yes Status: Acute Category: Medical Code(s): E87.6 - Hypokalemia Will add p.o. potassium (7) Renal insufficiency Current visit: Yes Status: Acute Category: Medical Code(s): N28.9 - Disorder of kidney and ureter, unspecified Metformin has been held. - Assessment and plan all Dx Assessment and Plan for all problems:: Cardiology to see and will follow their recommendations. Will have a CT of the chest to look at the abdominal aorta and a CT of the carotids. Some of home meds have been reordered.
--- NOTE | 2019-02-28 09:47 | Consult Report ---
History of Present Illness Consult date: 02/28/19 Requesting physician: Chris Patel Consult reason: chest pain Chief complaint: chest pain, dizziness Additional Medical History:: 1. Hypertension 2. BPH 3. Diabetes mellitus type 2, treated for several years 4. Family history of early coronary artery disease in his father (smoker) with heart attack in his early 60s 5. History of GERD 6. Anxiety/depression 7. Chronic kidney disease, stage III/IV, 02/2019 with Cr 2.21 down to 1.67 with GFR 29 improved to 39. History of present illness: Mr. De La Cruz is an 83-year-old male with a history of hypertension, anxiety, BPH, GERD, and type 2 diabetes mellitus who presented to [facility] emergency room after feeling chest discomfort. He stated it started the previous day with anxiety and the feeling of jitteriness in his chest. He also states he had severe back and neck pain. He denies shortness of breath, nausea, fever, and stomach issues. The discomfort persisted and thus after ch urch he presented to the emergency room. He received some IV fluids in the emergency room which made him feel better. He was then admitted to the hospital for observation and cardiac consultation. This a.m. patient does feel better. States the IV fluids helped.. He still has some jitteriness in his chest and some back and neck pain. He has periodic dizziness and complains of bilateral hand tremors. Troponin I's have been normal. He will receive potassium for a potassium of 2.9 this a.m The above per Salma Lainez APRN for Dr. Patel. The patient is relating his chest pain symptoms to times of emotional upset. He denies any shortness of breath or chest pain with activity around the house and states that his activities are usually limited. He does relate some dizziness with getting up and walking through the house with no history of passing out although he states he feels that he might at times pass out. Troponins during the stay have been normal. EKG shows mild sinus tachycardia with left axis deviation. [facility] History Medical History: Reports:: Anxiety, BPH, Diabetes Mellitus Type 2, Gastroesophageal Reflux Disease(GERD), Hypertension, Pulmonary Embolism Denies:: Cancer, Diabetes Mellitus Type 1, MRSA *Have you ever received a pneumonia vaccine?: Yes *Have you received a flu vaccine this season?: Yes Other Medical History: Reports: Arthritis Laterality Cases: Bilateral: Cataract Other Surgeries: Yes: Cholecystectomy, Colonoscopy, Hernia Repair (X3), Other (tooth extraction) Amputation: No Fractures: No - *Social History Educational Level: Completed GED/General Educational Development Smoking Status: Never smoker Alcohol Intake: never *Occupational Status:: retired Housing: house Household Members: spouse *Travel in the last 8 weeks: None - Psychiatric History Expresses thoughts of harming self/others: None Suicide Plan Description: No Plan Pschychiatric History:: Reports:: Anxiety Family Hx:: Coronary Artery Disease, Diabetes, Heart Attack Meds Home Medications Medication Instructions Recorded Confirmed Type LORazepam [Ativan 0.5mg 0.5 mg PO TID 12/07/17 02/27/19 History tablet] Metoprolol Succinate [Toprol XL 50 mg PO DAILY 12/07/17 02/27/19 History 50mg Tablet] Cholecalciferol (Vitamin D3) 1,000 unit PO DAILY 02/27/19 02/27/19 History [Vitamin D3 1,000 Unit Cap] Cyanocobalamin (Vitamin B-12) 1,000 mcg PO DAILY 02/27/19 02/27/19 History [Vitamin B-12 1000mcg Tablet] Doxazosin Mesylate [Cardura 4mg 4 mg PO HS 02/27/19 02/27/19 History tablet] L.acidoph,Paracasei, B.lactis 1 each PO DAILY 02/27/19 02/27/19 History [Probiotic] hydroCHLOROthiazide 12.5 mg PO QODHS 02/27/19 02/27/19 History [Hydrochlorothiazide 12.5mg Tab] Clopidogrel Bisulfate [Clopidogrel 75 mg PO DAILY 02/28/19 02/28/19 History 75mg Tab] Glimepiride [Amaryl] 2 mg PO DAILY 02/28/19 02/28/19 History Metformin HCl 1,000 mg PO BID 02/28/19 02/28/19 History Sertraline HCl [Zoloft 100mg 50 mg PO DAILY 02/28/19 02/28/19 History tablet] Allergies Allergy/AdvReac Type Severity Reaction Status Date / Time Penicillins Allergy Intermediate I-HIVES Verified 03/13/18 06:28 Sulfa (Sulfonamide Allergy Intermediate SORES IN Verified 03/13/18 06:28 Antibiotics) MOUTH Review of Systems - *Cardiovascular Reports chest pain, Denies shortness of breath - *Respiratory Denies cough, Denies shortness of breath - *Gastrointestinal Denies abdominal pain, Denies nausea, Denies vomiting - *Genitourinary Denies blood in urine, Denies urinary frequency - *Musculoskeletal Denies joint pain, Denies back pain - *Neurologic Reports dizziness, Reports headache(s), Reports tremor(s) (Bilateral hands), Denies abnormal walking Exam Vital signs and Labs for Last 24 Hours: Temp Pulse Resp BP Pulse Ox 98.9 F 82 17 141/64 H 95 02/28/19 08:00 02/28/19 08:00 02/28/19 08:00 02/28/19 08:00 02/28/19 08:00 Laboratory Results - last 24 hr 02/27/19 12:00: WBC 8.7, RBC 4.65, Hgb 13.6 L, Hct 40.9 L, MCV 88.0, MCH 29.3, MCHC 33.3, RDW 12.7, Plt Count 283, MPV 7.0 L, Neut % (Auto) 67.8, Lymph % (Auto) 21.3, [place] % (Auto) 7.3, Eos % (Auto) 2.7, Baso % (Auto) 0.8, Neut # (Auto) 5.9, Lymph # (Auto) 1.9, [place] # (Auto) 0.6, Eos # (Auto) 0.2, Baso # (Auto) 0.1 02/27/19 12:00: Sodium 139, Potassium 3.3 L, Chloride 98, Carbon Dioxide 28, Anion Gap 16.3 H, BUN 22 H, Creatinine 2.21 H, Estimated Creat Clear 29, Estimated GFR 29 L, Est GFR ( Amer) 34 L, Glucose 209 H, Calcium 8.9, Total Bilirubin 0.8, AST 16, ALT 19, Alkaline Phosphatase 103, Troponin I < 0.02, Total Protein 7.7, Albumin 3.6, Globulin 4.1 H, Albumin/Globulin Ratio 0.9 L, Lipase 163 02/27/19 17:28: POC Glucose 158 H 02/27/19 18:45: Total Creatine Kinase 41, CK-MB (CK-2) < 0.5, CK-MB (CK-2) Rel Index 1.2, Troponin I < 0.02 02/27/19 21:38: POC Glucose 218 H 02/28/19 05:47: Sodium 143, Potassium 2.9 L*, Chloride 105, Carbon Dioxide 30, Anion Gap 10.9, BUN 21 H, Creatinine 1.67 H D, Estimated Creat Clear 39, Estimated GFR 39 L, Est GFR ( Amer) 48 L D, Glucose 146 H D, Calcium 8.2 L 02/28/19 06:31: POC Glucose 136 H I & O for Last 24 hours: Intake & Output 02/25/19 02/26/19 02/27/19 02/28/19 11:59 11:59 11:59 11:59 Intake Total 1080 / 1080 Output Total 250 / 250 Balance 830 / 830 Weight 186 lb 5 oz - *Routine HEENT Exam Head: Present: normocephalic Eye: Present: EOMI, PERRL ENT: Present: mucous membranes moist - *Routine Neck Exam Present: supple. Absent: JVD, carotid bruit - *Routine Respiratory Exam Present: CTA bilaterally. Absent: accessory muscle use, rales, rhonchi, wheezes - *Routine Cardiovascular Exam Present: RRR. Absent: murmur, gallop, rubs - *Routine Abdominal Exam Present: soft. Absent: tenderness, distended, guarding - *Routine Extremities Exam Absent: edema, calf tenderness - *Routine Neurological Exam Present: alert, oriented X3, moving all extremities Assessment and Plan (1) Chest pain Current visit: Yes Status: Acute Qualifiers: Chest pain type: precordial pain Qualified Code(s): R07.2 - Precordial pain Category: Medical Code(s): R07.9 - Chest pain, unspecified (2) Anxiety Current visit: No Status: Acute Category: Medical Code(s): F41.9 - Anxiety disorder, unspecified (3) GERD (gastroesophageal reflux disease) Current visit: No Status: Chronic Category: Medical Code(s): K21.9 - Gastro-esophageal reflux disease without esophagitis (4) Hypertension Current visit: No Status: Chronic Category: Medical Code(s): I10 - Essential (primary) hypertension (5) Type 2 diabetes mellitus Current visit: No Status: Chronic Category: Medical Code(s): E11.9 - Type 2 diabetes mellitus without complications (6) Hypokalemia Current visit: Yes Status: Acute Category: Medical Code(s): E87.6 - Hypokalemia (7) Renal insufficiency Current visit: Yes Status: Acute Category: Medical Code(s): N28.9 - Disorder of kidney and ureter, unspecified - Assessment and plan all Dx Assessment and Plan for all problems:: 1. In light of the patient's chest pain with emotional upset, advanced age, history of hypertension and diabetes, would recommend proceeding with Lexiscan Myoview today. Will not proceed with exercise stress testing due to the fact the patient has recurrent history of dizziness with high risk for fall. 2. We will obtain an echocardiogram to evaluate left ventricular size and fun ction 3. Recommend monitoring him on telemetry for possible tachybradycardia syndrome 4. Patient relates history of carotid artery stenosis, I do believe a carotid ultrasound has been ordered. 5. Renal insufficiency, improved with IV fluids 6. Hypokalemia, replacement in progress.
--- NOTE | 2019-02-28 11:39 | Carotid Imaging Report ---
"Cerebrovascular Exam Indications: 785.9 Bruit. 780.4 Dizziness and giddiness. IMPRESSIONS 1. The bilateral vertebral arteries are patent with normal antegrade flow. 2. Study suggests 50-69% stenosis involving the right internal carotid artery. Disease progression from the study of 23-Aug-2005. 3. Study suggests 50-69% stenosis involving the left internal carotid artery. Disease progression from the study of 13-Aug-2005. History: Risk factors: Hypertension. Carotid duplex study. Complete study and Doppler flow study including spectral analysis, color and villa scale imaging. Height: Height: 180.3cm. Height: 71in. Weight: Weight: 84.4kg. Weight: 185.6lb. Body mass index: BMI: 25.9kg/m^2. Body surface area: BSA: 2.07m^2. Location: Bedside. Patient status: Inpatient. Tables: Arterial flow: + +--------+--------+ |Location |V sys |V ed | + +--------+--------+ |Right CCA - proximal|82.5cm/s|22cm/s | + +--------+--------+ |Right CCA - distal |70.7cm/s|14.1cm/s| + +--------+--------+ |Right ECA |94.4cm/s|8.5cm/s | + +--------+--------+ |Right ICA - proximal|89.2cm/s|23.1cm/s| + +--------+--------+ |Right ICA - mid |96.4cm/s|25.1cm/s| + +--------+--------+ |Right ICA - distal |48.3cm/s|14.7cm/s| + +--------+--------+ |Right vertebral |39.4cm/s|13.6cm/s| + +--------+--------+ |Left CCA - proximal |95.1cm/s|25.1cm/s| + +--------+--------+ |Left CCA - distal |81.2cm/s|17.5cm/s| + +--------+--------+ |Left ECA |85.6cm/s|12.2cm/s| + +--------+--------+ |Left ICA - proximal |89.9cm/s|22.7cm/s| + +--------+--------+ |Left ICA - mid |70.2cm/s|21.3cm/s| + +--------+--------+ |Left ICA - distal |82.3cm/s|25.5cm/s| + +--------+--------+ |Left vertebral |53.3cm/s|14cm/s | + +--------+--------+ Velocity ratios: + + + + + + | |Right, V sys|Right, V ed|Left, V sys|Left, V ed| + + + + + + |Max ICA/dist CCA|1.36 |1.78 |1.11 |1.46 | + + + + + + (Report amended ) Electronically signed by: Abdias Hong [id number]"
--- NOTE | 2019-02-28 21:05 | Cardiology Report ---
PROCEDURE: 2-D M-mode and color Doppler study INDICATIONS FOR THE TEST: Chest pain X COPD Heart Murmur Tobacco Smoking Palpitations Fatigue Syncope Edema HypertensionXDiabetes MellitusX Rheumatic Fever SOB VELARDE Obesity Hyperlipidemia Family History HDX Additional History DIZZINESS PATIENT INFORMATION HEIGHT: 71 WEIGHT:186 GENDER: Male B/P:141/64 2-D/M-MODE INTERPRETATION: 2-D MEASUREMENTS OBSERVED VALUES IN CMS Right Ventricular Dimension (RVDd) 1.3 Interventricular Septum (Thickness)(IVsd) .8 Left Ventricular Internal Dimensions(LVIDd) 5.0 Left Ventricular Posterior Wall (Thickness)(LVPWd) 1.1 Aortic Root 4.1 Aortic Cusp Separation 1.5 Left Atrial Dimensions (LAD) 3.0 2D 1. Left atrium is mildly enlarged, left ventricle is normal size, mild concentric left ventricular hypertrophy, visually estimated ejection fraction of 55% with no regional wall motion abnormality. 2. The right atrium and left ventricle are mildly enlarged with normal contractility. 3. The aortic valve is thickened and calcified leaflet continue to display mobility. 4. The mitral valve has mitral calcification, leaflets are minimally thickened. 5. The tricuspid valve is grossly normal. 6. The pulmonic valve is poorly visualized. 7. No significant pericardial effusion noted. DOPPLER INTERROGATION: Doppler interrogation of the aortic, mitral and tricuspid valvular presence of mild aortic, mild mitral and tricuspid regurgitation, tricuspid regurgitation jet velocity is inadequate for calculation of the right ventricular systolic pressure, grade 1 diastolic dysfunction seen without tissue Doppler evidence of raised left atrial pressure. Inferior vena cava is mildly dilated without significant respiratory collapse. CONCLUSION: 1. Mildly enlarged left atrium, normal left ventricular size, mild concentric left ventricular hypertrophy, visually estimated ejection fraction of 55% with no regional wall motion abnormality, grade 1 diastolic dysfunction seen without tissue Doppler evidence of raised left atrial pressure. 2. Mild aortic, mild mitral and tricuspid regurgitation, tricuspid regurgitation jet velocity is inadequate for calculation of the right ventricular systolic pressure, inferior vena cava is mildly dilated without significant inspiratory collapse. 3. No significant pericardial effusion noted.
[2019-03-01 06:28] LABS: Basophils # 0.1 K/mm3 (0-0.2); Basophils % 0.9 % (0.1-2.0); Eosinophils # 0.3 K/mm3 (0.0-0.4); Eosinophils % 4.7 % (0.1-12.0); Hematocrit 35.1 % (42.0-52.0); Hemoglobin 11.4 g/dL (14.1-18.0); Lymphocytes # 1.6 K/mm3 (0.7-4.5); Lymphocytes % 22.7 % (10-50); Mean Corpuscular HGB Conc 32.5 g/dL (31.8-35.4); Mean Corpuscular Hemoglobin 28.7 pg (27.0-31.2); Mean Corpuscular Volume 88.2 fl (80-94); Mean Platelet Volume 7.5 fl (7.4-10.4); Monocytes # 0.6 K/mm3 (0.1-1.0); Monocytes % 8.4 % (1.7-9.3); Neutrophils # 4.4 K/mm3 (1.8-7.8); Neutrophils % 63.3 % (37.0-80.0); Platelet Count 251 K/mm3 (142-424); Red Blood Count 3.98 M/mm3 (4.60-6.20); Red Cell Distribution Width 12.8 % (11.5-17.5); White Blood Count 6.9 K/mm3 (4.8-10.8)
[2019-03-01 06:51] LABS: Anion Gap 10.5 mEq/L (5-15); Calcium 8.3 mg/dL (8.5-10.1); Potassium 3.5 mmoL/L (3.5-5.1)
--- NOTE | 2019-03-01 08:20 | Progress Note ---
Internal Medicine - PN: Subj *Date: 03/01/19 *Time: 08:15 Interval history: Laboratory Tests 03/01/19 03/01/19 05:58 05:58 WBC 6.9 RBC 3.98 L Hgb 11.4 L Hct 35.1 L MCV 88.2 MCH 28.7 MCHC 32.5 RDW 12.8 Neut % (Auto) 63.3 Lymph % (Auto) 22.7 [place] % (Auto) 8.4 Sodium 143 Potassium 3.5 D Chloride 107 Carbon Dioxide 29 Anion Gap 10.5 BUN 16 Creatinine 1.52 H Estimated Creat Clear 44 Estimated GFR 44 L Est GFR ( Amer) 53 L Glucose 144 H Calcium 8.3 L Improved creatinine and potassium. Patient states he feels better this a.m. He is ready to go home. He has had no further funny feelings in his chest. He denies shortness of breath. Exam Vital signs and Labs for Last 24 Hours: Temp Pulse Resp BP Pulse Ox 98.0 F 66 18 134/86 92 L 03/01/19 04:00 03/01/19 04:00 03/01/19 04:00 03/01/19 04:00 03/01/19 07:56 Laboratory Results - last 24 hr 02/28/19 10:45: POC Glucose 161 H 02/28/19 16:25: POC Glucose 121 H 02/28/19 20:35: POC Glucose 150 H 03/01/19 05:31: POC Glucose 142 H 03/01/19 05:58: WBC 6.9, RBC 3.98 L, Hgb 11.4 L, Hct 35.1 L, MCV 88.2, MCH 28.7, MCHC 32.5, RDW 12.8, Plt Count 251, MPV 7.5, Neut % (Auto) 63.3, Lymph % (Auto) 22.7, [place] % (Auto) 8.4, Eos % (Auto) 4.7, Baso % (Auto) 0.9, Neut # (Auto) 4.4, Lymph # (Auto) 1.6, [place] # (Auto) 0.6, Eos # (Auto) 0.3, Baso # (Auto) 0.1 03/01/19 05:58: Sodium 143, Potassium 3.5 D, Chloride 107, Carbon Dioxide 29, Anion Gap 10.5, BUN 16, Creatinine 1.52 H, Estimated Creat Clear 44, Estimated GFR 44 L, Est GFR ( Amer) 53 L, Glucose 144 H, Calcium 8.3 L I & O for Last 24 hours: Intake & Output 02/26/19 02/27/19 02/28/19 03/01/19 11:59 11:59 11:59 11:59 Intake Total 1080 / 1080 240 / 240 Output Total 250 / 250 Balance 830 / 830 240 / 240 Weight 186 lb 5 oz 191 lb 4 oz Radiology Reports for the Last 24 Hours: 02/28/[address] --------IMPRESSION: ------- 1.... No active disease in the chest.No evidence of pulmonary embolism.. 2.... No significant pleural or pulmonary nodule or lesion . Small 4.5 mm nodule at the periphery of the superior segment LLL-stable since 2007 3.... Mild linear scarring & atelectasis toward lung bases again seen similar only slightly more pronounced thin 2007 CT chest. . 4. Other observations: ..Coronary artery calcifications and stents noted. 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 . 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 The bilateral vertebral arteries are patent with normal antegrade flow. 2. Study suggests 50-69% stenosis involving the right internal carotid artery. Disease progression from the study of 23-Aug-2005. 3. Study suggests 50-69% stenosis involving the left internal carotid artery. Disease progression from the study of 13-Aug-2005. Echocardiogram 02/28/2019 CONCLUSION: 1. Mildly enlarged left atrium, normal left ventricular size, mild concentric left ventricular hypertrophy, visually estimated ejection fraction of 55% with no regional wall motion abnormality, grade 1 diastolic dysfunction seen without tissue Doppler evidence of raised left atrial pressure. 2. Mild aortic, mild mitral and tricuspid regurgitation, tricuspid regurgitation jet velocity is inadequate for calculation of the right ventricular systolic pressure, inferior vena cava is mildly dilated without significant inspiratory collapse. 3. No significant pericardial effusion noted. 02/28/2019 myocardial perfusion scan nuclear medicine IMPRESSION : 1. No significant reversible perfusion defect No evidence of stress-induced ischemia.. 2.. Modest Matched-/fixed area of decreased perfusion at the inferior base of heart Possibly could Reflect diaphragmatic/ & chest attenuation artifact. (Old CO in this region considered but less likely likely without supportive history or EKG findings.) 3.... 68 % ejection fraction with concentric wall thickening otherwise. - Constitutional no acute distress Comments: Sitting in chair in the room fully dressed. Appears comfortable. - *Routine Respiratory Exam Present: CTA bilaterally (Anteriorly and posteriorly) - *Routine Cardiovascular Exam Present: RRR - *Routine Abdominal Exam Present: soft, normoactive bowel sounds. Absent: tenderness, distended - *Routine Extremities Exam Absent: edema, calf tenderness - *Routine Neurological Exam Present: alert, oriented X3 Assessment and Plan (1) Chest pain Current visit: Yes Status: Acute Qualifiers: Chest pain type: precordial pain Qualified Code(s): R07.2 - Precordial pain Category: Medical Code(s): R07.9 - Chest pain, unspecified (2) Anxiety Current visit: No Status: Acute Category: Medical Code(s): F41.9 - Anxiety disorder, unspecified (3) GERD (gastroesophageal reflux disease) Current visit: No Status: Chronic Category: Medical Code(s): K21.9 - Gastro-esophageal reflux disease without esophagitis (4) Hypertension Current visit: No Status: Chronic Category: Medical Code(s): I10 - Essential (primary) hypertension (5) Type 2 diabetes mellitus Current visit: No Status: Chronic Category: Medical Code(s): E11.9 - Type 2 diabetes mellitus without complications (6) Hypokalemia Current visit: Yes Status: Acute Category: Medical Code(s): E87.6 - Hypokalemia (7) Renal insufficiency Current visit: Yes Status: Acute Category: Medical Code(s): N28.9 - Disorder of kidney and ureter, unspecified (8) Dizziness Current visit: Yes Status: Chronic Category: Medical Code(s): R42 - Dizziness and giddiness - Assessment and plan all Dx Assessment and Plan for all problems:: Cardiology feels patient is ready to go home. Symptoms have improved with fluids and potassium. We will discharge to home with orders as per Dr. Patel.
--- NOTE | 2019-03-01 08:28 | Progress Note ---
Subjective Date: 03/01/19 Time: 08:25 Principal diagnosis: Dizziness Interval history: 84-year-old white male in bedside chair in no acute distress. No recurrent chest pain. Patient states his dizziness has improved with IV fluids. Results of his stress test, echocardiogram and carotid ultrasound reviewed with the patient. Patient is ready to go home if allowed. Exam Vital signs and Labs for Last 24 Hours: Temp Pulse Resp BP Pulse Ox 97.6 F 80 18 118/59 L 95 03/01/19 08:00 03/01/19 08:00 03/01/19 08:00 03/01/19 08:00 03/01/19 08:00 Laboratory Results - last 24 hr 02/28/19 10:45: POC Glucose 161 H 02/28/19 16:25: POC Glucose 121 H 02/28/19 20:35: POC Glucose 150 H 03/01/19 05:31: POC Glucose 142 H 03/01/19 05:58: WBC 6.9, RBC 3.98 L, Hgb 11.4 L, Hct 35.1 L, MCV 88.2, MCH 28.7, MCHC 32.5, RDW 12.8, Plt Count 251, MPV 7.5, Neut % (Auto) 63.3, Lymph % (Auto) 22.7, [place] % (Auto) 8.4, Eos % (Auto) 4.7, Baso % (Auto) 0.9, Neut # (Auto) 4.4, Lymph # (Auto) 1.6, [place] # (Auto) 0.6, Eos # (Auto) 0.3, Baso # (Auto) 0.1 03/01/19 05:58: Sodium 143, Potassium 3.5 D, Chloride 107, Carbon Dioxide 29, Anion Gap 10.5, BUN 16, Creatinine 1.52 H, Estimated Creat Clear 44, Estimated GFR 44 L, Est GFR ( Amer) 53 L, Glucose 144 H, Calcium 8.3 L I & O for Last 24 hours: Intake & Output 02/26/19 02/27/19 02/28/19 03/01/19 11:59 11:59 11:59 11:59 Intake Total 1080 / 1080 480 / 480 Output Total 250 / 250 Balance 830 / 830 480 / 480 Weight 186 lb 5 oz 191 lb 4 oz - *Routine Respiratory Exam Present: CTA bilaterally. Absent: accessory muscle use, rales, rhonchi, wheezes - *Routine Cardiovascular Exam Present: RRR. Absent: murmur, gallop, rubs - *Routine Neurological Exam Present: alert, oriented X3, moving all extremities Progress Note: A&P (1) Chest pain Status: Acute Current Visit: Yes (2) Anxiety Status: Acute Current Visit: No (3) GERD (gastroesophageal reflux disease) Status: Chronic Current Visit: No (4) Hypertension Status: Chronic Current Visit: No (5) Type 2 diabetes mellitus Status: Chronic Current Visit: No (6) Hypokalemia Status: Acute Current Visit: Yes (7) Renal insufficiency Status: Acute Current Visit: Yes Assessment and Plan for All Diagnoses:: 1. Clinically stable from a cardiac standpoint for discharge home. Stress test showed no evidence of ischemia with normal ejection fraction. The fixed defect noted on both rest and stress images is likely due to artifact either from diaphragmatic attenuation or other soft tissue. The echocardiogram showed normal ejection fraction with no wall motion abnormality suggesting that no previous heart attack has occurred. 2. No arrhythmias noted on telemetry. 3. Okay for discharge from cardiology standpoint. Follow-up in 2 weeks. Continue Plavix for carotid artery stenosis.
--- NOTE | 2019-03-01 08:55 | Pharmacy Consult Notes ---
[facility] Pharmacy VTE Monitoring - Patient Demographics Admission date: 02/27/19 Report Date: 03/01/19 Time: 08:55 Allergies/Adverse Reactions: Patient Allergies Penicillins Allergy (Intermediate, Verified 03/13/18 06:28) I-HIVES Sulfa (Sulfonamide Antibiotics) Allergy (Intermediate, Verified 03/13/18 06:28) SORES IN MOUTH Height: 1.8 m Weight: 86.75 kg Patient Problems: Current Active Problems (Updated 03/01/19 @ 08:26 by Salma Lainez APRN) Chest pain (Acute) Hypokalemia (Acute) Renal insufficiency (Acute) Dizziness (Chronic) - VTE Risk Labs: VTE Related Lab Results Hgb 11.4 g/dL (14.1-18.0) L 03/01/19 05:58 Hct 35.1 % (42.0-52.0) L 03/01/19 05:58 Plt Count 251 K/mm3 (142-424) 03/01/19 05:58 BUN 16 mg/dL (7-18) 03/01/19 05:58 Creatinine 1.52 mg/dL (0.70-1.30) H 03/01/19 05:58 Estimated Creat Clear 44 mL/min (50-200) 03/01/19 05:58 Was VTE Risk Assessment Performed: Yes VTE Score: 2 VTE Risk Level: Low Risk Clinical Trial Participant: No - Prophylaxis VTE Prophylaxis Ordered?: Yes Types of VTE Prophylaxis: TEDS Knee High
--- NOTE | 2019-03-01 21:53 | Discharge Summary ---
General - General Admission date:: 02/27/19 Discharge date: 03/01/19 HPI HPI: Mr. De La Cruz is an 83-year-old male with a history of hypertension, anxiety, BPH, GERD, and type 2 diabetes mellitus who presented to [facility] emergency room after feeling chest discomfort. He stated it started the previous day with anxiety and the feeling of jitteriness in his chest. He also states he had severe back and neck pain. He denies shortness of breath, nausea, fever, and stomach issues. The discomfort persisted and thus after yazidi he presented to the emergency room. He received some IV fluids in the emergency room which made him feel better. He was then admitted to the hospital for observation and cardiac consultation. This a.m. patient does feel better. States the IV fluids helped.. He still has some jitteriness in his chest and some back and neck pain. He has periodic dizziness and complains of bilateral hand tremors. Troponin I's have been normal. He will receive potassium for a potassium of 2.9 this a.m. Hospital Course Hospital Course: The patient's chest x-ray showed nothing acute. His potassium was low and he received potassium supplementation. His troponins were negative. Cardiology was consulted and a CT of the chest was ordered to look at the abdominal aorta. An U/S of the carotids was ordered as well. The chest CT showed no active disease and no PE. Coronary artery calcifications were noted. 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 The patient also had a dilated proximal celiac artery. His carotid ultrasound showed 50-69% stenosis on the right and left. Cardiology saw the patient and felt he would need a Lexiscan Myoview. An echo was also ordered. They wanted to monitor him on telemetry for possible tachybradycardia syndrome. The patient did begin feeling better. His creatinine and potassium improved. He wanted to be discharged home. He had no further funny feelings in his chest. His di zziness improved with the IV fluids. His stress test showed no evidence of ischemia with a normal ejection fraction. The echocardiogram showed a normal ejection fraction with no wall motion abnormality suggesting the no previous heart attack had occurred. There were also no arrhythmias noted on telemetry. The patient was stable to be discharged home and will need to follow-up with Dr. patterson and cardiology. Objective Vital signs: Temp Pulse Resp BP Pulse Ox 97.6 F 80 18 118/59 L 95 03/01/19 08:00 03/01/19 08:00 03/01/19 08:00 03/01/19 08:00 03/01/19 08:00 Narrative: - Constitutional no acute distress Comments: Sitting on the bedside eating his breakfast. Appears comfortable. - *Routine HEENT Exam Head: Present: normocephalic, atraumatic Eye: Present: PERRL. Absent: conjunctival icterus, scleral injection - *Routine Neck Exam Absent: carotid bruit, lymphadenopathy, thyromegaly - *Routine Respiratory Exam Present: CTA bilaterally (Anteriorly and posteriorly) - *Routine Cardiovascular Exam Present: RRR - *Routine Abdominal Exam Present: soft, normoactive bowel sounds. Absent: tenderness - *Routine Extremities Exam Absent: edema, calf tenderness - *Routine Neurological Exam Present: alert, oriented X3 Results Labs on day of discharge: Labs from last 24 hours 03/01/19 03/01/19 03/01/19 05:58 05:58 05:31 WBC 6.9 RBC 3.98 L Hgb 11.4 L Hct 35.1 L MCV 88.2 MCH 28.7 MCHC 32.5 RDW 12.8 Plt Count 251 MPV 7.5 Neut % (Auto) 63.3 Lymph % (Auto) 22.7 Caroline % (Auto) 8.4 Eos % (Auto) 4.7 Baso % (Auto) 0.9 Neut # (Auto) 4.4 Lymph # (Auto) 1.6 Caroline # (Auto) 0.6 Eos # (Auto) 0.3 Baso # (Auto) 0.1 Sodium 143 Potassium 3.5 D Chloride 107 Carbon Dioxide 29 Anion Gap 10.5 BUN 16 Creatinine 1.52 H Estimated Creat Clear 44 Estimated GFR 44 L Est GFR ( Amer) 53 L Glucose 144 H POC Glucose 142 H Calcium 8.3 L 02/28/19 20:35 WBC RBC Hgb Hct MCV MCH MCHC RDW Plt Count MPV Neut % (Auto) Lymph % (Auto) Caroline % (Auto) Eos % (Auto) Baso % (Auto) Neut # (Auto) Lymph # (Auto) Caroline # (Auto) Eos # (Auto) Baso # (Auto) Sodium Potassium Chloride Carbon Dioxide Anion Gap BUN Creatinine Estimated Creat Clear Estimated GFR Est GFR ( Amer) Glucose POC Glucose 150 H Calcium DS: Diagnosis - Discharge Diagnosis (1) Chest pain Status: Acute (2) Anxiety Status: Acute (3) GERD (gastroesophageal reflux disease) Status: Chronic (4) Hypertension Status: Chronic (5) Type 2 diabetes mellitus Status: Chronic (6) Hypokalemia Status: Acute (7) Renal insufficiency Status: Acute (8) Dizziness Status: Chronic Discharge Plan - Patient Discharge Instructions ACTIVITY: Continue current activity DIET: continue same diet Patient Instructions: DI for Chest Pain, High-Potassium Diet - Follow up Plan Follow up with: Chris Patterson MD [Primary Care Provider] - 03/07/19 Disposition: Home, Self-Skilled Nursing Medications: Home Medications Medication Instructions Recorded Confirmed Type LORazepam [Ativan 0.5mg 0.5 mg PO TID 12/07/17 02/27/19 History tablet] Metoprolol Succinate [Toprol XL 50 mg PO DAILY 12/07/17 02/27/19 History 50mg Tablet] Cholecalciferol (Vitamin D3) 1,000 unit PO DAILY 02/27/19 02/27/19 History [Vitamin D3 1,000 Unit Cap] Cyanocobalamin (Vitamin B-12) 1,000 mcg PO DAILY 02/27/19 02/27/19 History [Vitamin B-12 1000mcg Tablet] Doxazosin Mesylate [Cardura 4mg 4 mg PO HS 02/27/19 02/27/19 History tablet] L.acidoph,Paracasei, B.lactis 1 each PO DAILY 02/27/19 02/27/19 History [Probiotic] hydroCHLOROthiazide 12.5 mg PO QODHS 02/27/19 02/27/19 History [Hydrochlorothiazide 12.5mg Tab] Clopidogrel Bisulfate [Clopidogrel 75 mg PO DAILY 02/28/19 02/28/19 History 75mg Tab] Glimepiride [Amaryl] 2 mg PO DAILY 02/28/19 02/28/19 History Metformin HCl 1,000 mg PO BID 02/28/19 02/28/19 History Sertraline HCl [Zoloft 100mg 50 mg PO DAILY 02/28/19 02/28/19 History tablet] Potassium Chloride [Micro-K 10mEq 10 meq PO DAILY #30 cap 03/01/19 Rx cap] Prescriptions/Medication Reconciliation: New Potassium Chloride [Micro-K 10mEq cap] 10 meq PO DAILY #30 cap Continued Metoprolol Succinate [Toprol XL 50mg Tablet] 50 mg PO DAILY LORazepam [Ativan 0.5mg tablet] 0.5 mg PO TID L.acidoph,Paracasei, B.lactis [Probiotic] 1 each PO DAILY Cyanocobalamin (Vitamin B-12) [Vitamin B-12 1000mcg Tablet] 1,000 mcg PO DAILY hydroCHLOROthiazide [Hydrochlorothiazide 12.5mg Tab] 12.5 mg PO QODHS Doxazosin Mesylate [Cardura 4mg tablet] 4 mg PO HS Clopidogrel Bisulfate [Clopidogrel 75mg Tab] 75 mg PO DAILY Glimepiride [Amaryl] 2 mg PO DAILY Sertraline HCl [Zoloft 100mg tablet] 50 mg PO DAILY Cholecalciferol (Vitamin D3) [Vitamin D3 1,000 Unit Cap] 1,000 unit PO DAILY Metformin HCl 1,000 mg PO BID
== END 2019-03-01 10:10 | disposition home or self-care (01) ==
LOC: ER 11:56 → 2ND 11:56
PROVIDERS: ADMIT Emergency Medicine; ATTEND Family Medicine
DX: Z79.84 Long term (current) use of oral hypoglycemic drugs; F41.9 Anxiety disorder, unspecified; E11.22 Type 2 diabetes mellitus with diabetic chronic kidney disease; N18.3 Chronic kidney disease, stage 3 (moderate); R07.9 Chest pain, unspecified; K21.9 Gastro-esophageal reflux disease without esophagitis; I26.99 Other pulmonary embolism without acute cor pulmonale; I65.23 Occlusion and stenosis of bilateral carotid arteries; D29.1 Benign neoplasm of prostate; Z88.0 Allergy status to penicillin; Z88.2 Allergy status to sulfonamides; R42 Dizziness and giddiness; Z79.899 Other long term (current) drug therapy; Z82.49 Family history of ischemic heart disease and other diseases of the circulatory system; E87.6 Hypokalemia; I12.9 Hypertensive chronic kidney disease with stage 1 through stage 4 chronic kidney disease, or unspecified chronic kidney disease
CPT/HCPCS: 36415; 71010; 71045; 71270; 78452; 80048; 80053; 82550; 82553; 82962; 83690; 84484; 85025; 93005; 93017; 93306; 93880; 99285; A9502; G0378; J2785; Q9967

== ENCOUNTER 2020-03-22 07:51 | Day surgery (SDC) | payer MEDICARE, SELFPAY ==
--- NOTE | 2020-03-22 07:55 | CA_ITS ---
APPROVED REPORT Building Surveyor: Naz Ruelas RVT Laterality: Bilateral Study Quality: Good Indications: Dizziness and Vertigo, Syncope, Carotid stenosis Risk Factors Hypertension: Hyperlipidemia Diabetes Doppler Spectral Velocity Analysis ECA (R) 120.00/3.20 cm/s ECA (L) 129.40/9.80 cm/s dICA (R) 48.70/12.80 cm/s dICA (L) 86.80/19.70 cm/s Henrry (R) 88.10/12.50 cm/s Henrry (L) 78.70/26.20 cm/s pICA (R) 106.60/17.90 cm/s pICA (L) 76.20/18.80 cm/s dCCA (R) 125.70/10.90 cm/s dCCA (L) 98.30/13.90 cm/s pCCA (R) 85.50/11.50 cm/s pCCA (L) 120.40/18.00 cm/s Vert (R) 63.90/10.70 cm/s Vert (L) 58.20/10.70 cm/s ICA/CCA 0.85 ICA/CCA 0.88 Conclusion Study suggests 20-49% stenosis of the right internal cartoid artery. Study suggests 20-49% stenosis of the left internal cartoid artery. Antegrade flow seen bilateral vertebral arteries. Electronically signed by : Neri Andrew MD 03/22/2020 17:04:09
[2020-03-22 08:17] VITALS: BMI 28.4
[2020-03-22 09:04] VITALS: BP 135/64; PULSE 54; RESP 18; TEMP 36.8; O2SAT 94
[2020-03-22 09:24] VITALS: BP 132/61; BP 151/66; PULSE 55; PULSE 58; RESP 18; O2SAT 95; O2SAT 96
--- NOTE | 2020-03-22 11:15 | HMH.LOOP ---
[facility] Loop Recorder Date: 03/22/20 Time: 09:00 Procedure Performed:: Loop recorder implantation Indication:: History of syncope Technique:: Patient was brought to the cardiac Brokerage Manager. After informed consent obtained, 1% lidocaine with epinephrine was used to anesthetize the site along the left anterior aspect of the chest near the sternal border. Using the preformed scalpel, an incision was made and using the supplied preloaded apparatus, the loop recorder was placed subcutaneously without difficulty. Following the deployment of the loop recorder interrogation of the device was performed to ensure appropriate voltage was being detected (0.40 mV). Once this was verified, Steri-Strips were placed over the incision and the patient was prepped to discharge home. Patient tolerated the procedure well with minimal discomfort. Impression:: Successful implantation of loop recorder Serial Number:: [id number] Plan:: Routine postop care
== END 2020-03-22 09:31 | disposition home or self-care (01) ==
PROVIDERS: PCP Family Medicine; Visit Provider Internal Medicine
DX: I65.23 Occlusion and stenosis of bilateral carotid arteries (principal); R42 Dizziness and giddiness; E11.9 Type 2 diabetes mellitus without complications; Z79.84 Long term (current) use of oral hypoglycemic drugs; I10 Essential (primary) hypertension; I25.10 Atherosclerotic heart disease of native coronary artery without angina pectoris; Z88.0 Allergy status to penicillin; Z88.2 Allergy status to sulfonamides; Z79.899 Other long term (current) drug therapy
CPT/HCPCS: 33285; 93880

== ENCOUNTER → 2020-12-21 14:05 | Outpatient (CLI) | payer MEDICARE, SELFPAY ==
--- NOTE | 2020-12-21 14:24 | XR_ITS ---
PROCEDURE: XR KNEE LT 4V CLINICAL INDICATION: weight bearing COMPARISON: No exams were available for comparison FINDINGS: No fracture or dislocation. No lytic or blastic change. There is mild generalized osteopenia. There is marked joint space narrowing medially and there is moderate spurring of the tibial spines. There are periarticular ossicles, a large 1 seen just superior to the superior border of the patella and smaller ossicles are seen adjacent to the lateral femoral condyle posteriorly. There is no definite effusion. IMPRESSION: Moderate degenerative changes with periarticular ossicles as noted, no acute pathology seen Dictated by: Dr. Austyn Packer MD 12/21/2020 14:48 Dr. Austyn Packer MD in [place] 12/21/2020 14:48
== END ==
PROVIDERS: PCP Family Medicine; Visit Provider Orthopaedic Surgery
DX: M25.562 Pain in left knee (principal)
CPT/HCPCS: 73564

== ENCOUNTER 2021-01-28 01:41 | Emergency (ER) | payer MEDICARE, SELFPAY ==
[2021-01-28 01:50] VITALS: BP 167/79; PULSE 55; RESP 16; TEMP 37.1; O2SAT 95; BMI 25.4
--- NOTE | 2021-01-28 01:57 | PC.NURSE ---
Arm cleaned with Hibaclense and clean dressing placed.
--- NOTE | 2021-01-28 02:00 | HMH.EDWNDL ---
ED Disposition Clinical Impression: Skin tear Disposition: Home, Self-Care Condition on Discharge: Good Instructions: DI for Laceration Repair-Skin Glue Additional Instructions: see pcp for follow up Prescriptions: ondansetron HCL [Zofran 4mg Tab] 4 mg PO TID #15 tab Transmission Status: Pending to [facility] Referrals: Chris Patel MD [Primary Care Provider] - - Critical Care Critical Care Time: No Attestation: On 01/28/21, the high probability of a clinically significant, sudden or life threatening deterioration of the following system(s) required my full and direct attention, intervention and personal management. The time I documented below is in addition to time spent performing reported procedures but includes the following listed in this critical care notation. Medical Decision Making - Medical Records Medical records reviewed: Yes: I reviewed the patient's medical records. - Henrique Inquiry Pt receiving controlled substance: No Vital Signs: 01/28/21 01:50 Temperature 98.7 F Temperature Source Oral Pulse Rate [Right] 55 L Respiratory Rate 16 Blood Pressure [Right Arm] 167/79 H Blood Pressure Mean [Right Arm] 108 Blood Pressure Source [Right Arm] Automatic Cuff Blood Pressure Position [Right Arm] Sitting 02 Sat by Pulse Oximetry 95 Oxygen Delivery Method Room Air Wound/Laceration HPI - General Chief Complaint: Skin/Abscess/Foreign Body Stated Complaint: Deep Scratch on rt arm from dog Time Seen by Provider: 01/28/21 02:00 Mode of Arrival: Wheelchair Source of Information: Patient, Spouse, Medical Record Limitations: No Limitations Description of Symptoms (Recalled from ER Triage Doc. by RN): Pt states his dog jumped on him and caused a skin tear to his left forearm, bleeding is controlled - History of Present Illness HPI narrative: dog jumped on pt with abrasion rt forearm Onset (ago): hour(s) Extremity Location: Right: forearm Place: home Patient tetanus UTD: Yes Context: accidental Associated symptoms: none - Related Data Home Medications Medication Instructions Recorded Confirmed Cholecalciferol (Vitamin D3) 1,000 unit PO DAILY 02/27/19 01/18/21 [Vitamin D3 1,000 Unit Cap] Cyanocobalamin (Vitamin B-12) 1,000 mcg PO DAILY 02/27/19 01/18/21 [Vitamin B-12 1000mcg Tablet] Doxazosin Mesylate [Cardura 4mg 4 mg PO HS 02/27/19 01/18/21 tablet] L.acidoph,Paracasei, B.lactis 1 each PO DAILY 02/27/19 01/18/21 [Probiotic] hydroCHLOROthiazide 12.5 mg PO QODHS 02/27/19 01/18/21 [Hydrochlorothiazide 12.5mg Tab] Glimepiride [Amaryl] 2 mg PO DAILY 02/28/19 01/18/21 alprazolam 0.25 mg tablet 0.25 mg PO DAILY PRN tab 11/15/19 01/18/21 nitroglycerin 0.4 mg sublingual 0.4 mg SUBLINGUAL Q5-15M PRN tab 03/28/20 01/18/21 tablet metformin 500 mg tablet 500 mg PO DAILY tab 08/01/20 01/18/21 sertraline 100 mg tablet 100 mg PO DAILY 12/21/20 01/18/21 Previous Rx's Medication Instructions Recorded Potassium Chloride [Micro-K 10mEq 10 meq PO DAILY #30 cap 03/01/19 cap] Isosorbide Mononitrate [Imdur 30mg 30 mg PO DAILY 30 Days #30 08/27/19 ER tablet] tab.er.24h clopidogrel 75 mg tablet 75 mg PO DAILY #90 tab 11/15/19 metoprolol succinate 25 mg 25 mg PO DAILY #30 tab 03/14/20 tablet,extended release 24 hr ondansetron HCL [Zofran 4mg Tab] 4 mg PO TID #15 tab 01/28/21 Allergies Allergy/AdvReac Type Severity Reaction Status Date / Time Penicillins Allergy Intermediate I-HIVES Verified 01/18/21 14:39 Sulfa (Sulfonamide Allergy Intermediate SORES IN Verified 01/18/21 14:39 Antibiotics) MOUTH H History - Hepatitis A Screen Drug use history?: No High risk sexual behaviors?: No History of sexually transmitted infection?: No Currently employed?: No Childcare worker?: No Do you have indoor plumbing?: Yes Do you have electricity?: Yes Attestation statement:: This patient has been screened for Hepatitis A risk factors. I h
[2021-01-28 02:08] VITALS: BP 165/74; PULSE 56; RESP 16; TEMP 37.1; O2SAT 96
== END 2021-01-28 02:09 | disposition home or self-care (01) ==
PROVIDERS: Emergency Provider Emergency Medicine; PCP Family Medicine
DX: S51.811A Laceration without foreign body of right forearm, initial encounter (principal); W54.1XXA Struck by dog, initial encounter; Y92.019 Unspecified place in single-family (private) house as the place of occurrence of the external cause; E11.9 Type 2 diabetes mellitus without complications; K21.9 Gastro-esophageal reflux disease without esophagitis; I10 Essential (primary) hypertension; F41.9 Anxiety disorder, unspecified; Z79.899 Other long term (current) drug therapy
CPT/HCPCS: 12001; 99281

== ENCOUNTER 2021-11-02 12:05 | Emergency (ER) | payer MEDICARE, SELFPAY ==
[2021-11-02 12:37] VITALS: BP 172/84; PULSE 55; RESP 18; TEMP 36.7; O2SAT 96; BMI 24.1
--- NOTE | 2021-11-02 12:50 | CT_ITS ---
PROCEDURE INFORMATION: Exam: CT Head Without Contrast Exam date and time: 11/02/2021 12:50 PM Age: 86 years old Clinical indication: Dizziness and weakness, extremity; Additional info: Dizziness, weakness, off balance TECHNIQUE: Imaging protocol: Computed tomography of the head without contrast. Radiation optimization: All CT scans at this facility use at least one of these dose optimization techniques: automated exposure control; mA and/or kV adjustment per patient size (includes targeted exams where dose is matched to clinical indication); or iterative reconstruction. COMPARISON: No relevant prior studies available. FINDINGS: Brain: No acute intracranial findings. No intracranial hemorrhage. No edema, swelling or mass-effect. There is moderate generalized cerebral atrophy. Extensive patchy white matter disease in both cerebral hemispheres, nonspecific but most likely chronic microvascular ischemic changes in an 86-year-old. Chronic falcine and meningeal calcifications Cerebral ventricles: The ventricles are normal for age. No hydrocephalus. Paranasal sinuses: No acute findings in the visualized sinuses. No significant sinus opacification or air-fluid levels. Mild ethmoid and maxillary sinus mucosal thickening. Mastoid air cells: Mastoids are unremarkable as visualized, no effusions. Orbital cavity: No acute findings in the orbits as visualized. Correlate for previous bilateral lens replacement surgeries. Vasculature: There are atherosclerotic calcified plaques in the intracranial carotid and vertebral arteries. Bones/joints: No acute skull fracture. No lytic lesions. Soft tissues: There are no soft tissue masses or fluid collections. IMPRESSION: 1. No acute findings. 2. There is no CT evidence of intracranial mass, intracranial hemorrhage, or acute infarct. 3. Senescent changes as above, with cerebral atrophy, extensive white matter disease, atherosclerotic calcifications. 4. Additional nonemergency and chronic findings as above.
--- NOTE | 2021-11-02 12:50 | XR_ITS ---
PROCEDURE INFORMATION: Exam: XR Chest Exam date and time: 11/02/2021 12:50 PM Age: 86 years old Clinical indication: Other: Weakness and dizziness; Additional info: Weakness, dizziness, off balance TECHNIQUE: Imaging protocol: XR of the chest. Upright portable AP exam 1:47 p.m. Views: 1 view. COMPARISON: CR XR CHEST PORTABLE 08/27/2019 2:26 PM FINDINGS: Lungs: No acute pulmonary findings. No pulmonary consolidation. Lung volumes within normal limits. Pulmonary vessels do not appear significantly congested. Pleural spaces: Unremarkable. No significant pleural effusion. No pneumothorax. Heart/Mediastinum: Cardiac size is appears within upper normal limits, considering portable AP film technique. Calcified plaques in the aortic arch. Overlying electronic compliance monitor device. Bones/joints: There are spinal degenerative changes, with multilevel disc narrrowing and spondylosis. IMPRESSION: 1. No acute findings. 2. Non emergency and chronic findings as above.
--- NOTE | 2021-11-02 13:12 | PC.NURSE ---
Urine sent to lab at this time.
[2021-11-02 13:16] LABS: Basophils # 0.1 K/mm3 (0-0.2); Basophils % 0.9 % (0.1-2.0); Eosinophils # 0.2 K/mm3 (0.0-0.4); Eosinophils % 2.6 % (0.1-12.0); Hematocrit 35.8 % (42.0-52.0); Hemoglobin 11.3 g/dL (14.1-18.0); Lymphocytes # 1.4 K/mm3 (0.7-4.5); Lymphocytes % 23.7 % (10-50); Mean Corpuscular HGB Conc 31.5 g/dL (31.8-35.4); Mean Corpuscular Hemoglobin 29.4 pg (27.0-31.2); Mean Corpuscular Volume 93.5 fl (80-94); Mean Platelet Volume 8.7 fl (7.4-10.4); Monocytes # 0.5 K/mm3 (0.1-1.0); Monocytes % 8.6 % (1.7-9.3); Neutrophils # 3.8 K/mm3 (1.8-7.8); Neutrophils % 64.1 % (37.0-80.0); Platelet Count 233 K/mm3 (142-424); Red Blood Count 3.83 M/mm3 (4.60-6.20); Red Cell Distribution Width 12.8 % (11.5-17.5); White Blood Count 5.9 K/mm3 (4.8-10.8)
[2021-11-02 13:17] LABS: Microscopic, Urine URINE MICROSCOPIC (MICROSCOPIC)
[2021-11-02 13:18] LABS: Appearance,Urine CLEAR (Clear); Bilirubin,Urine Negative (Negative); Blood, Urine TRACE-I (Negative); Color,Urine YELLOW (Yellow); Glucose,Urine (UA) Negative (Negative); Ketones,Urine Negative (Negative); Leukocyte Esterase,Urine Negative (Negative); Nitrate,Urine Negative (Negative); Protein,Urine Negative (Negative); Urobilinogen,Urine 0.2 EU/dl (0.2)
[2021-11-02 13:32] LABS: Chloride 103 mmol/L (98-107); Sodium 139 mmol/L (136-145)
[2021-11-02 13:33] LABS: Potassium 4.1 mmoL/L (3.5-5.1)
[2021-11-02 13:35] LABS: Alanine Aminotransferase 11 U/L (12-78); Albumin Level 3.6 g/dl (3.5-5.0); Albumin/Globulin Ratio 1.3 (1.1-1.8); Alkaline Phosphatase 86 U/L (38-126); Anion Gap 11.1 mEq/L (5-15); Aspartate Amino Transferase 25 U/L (17-59); Bilirubin,Total 0.5 mg/dl (0.2-1.3); Blood Urea Nitrogen 34 mg/dl (9-20); Carbon Dioxide 29 mmol/L (22.0-30.0); Creatinine Clearance Estimated 29 mL/min (50-200); Estimated Glomerular Filt Rate 32 ml/min (>60); GFR (African American) 39 ML/MIN (>60); Globulin 2.8 g/dL (1.3-3.2); Total Protein,Serum 6.4 g/dl (6.3-8.2)
[2021-11-02 13:36] LABS: Calcium 8.6 mg/dl (8.4-10.2); Glucose 139 mg/dl (74-100)
[2021-11-02 13:44] LABS: RBC,Urine Occasional #/hpf (0-3)
--- NOTE | 2021-11-02 14:39 | ECG_ITS ---
APPROVED REPORT Exam: Resting ECG HR:48 bpm ECG Measurements Heart Rate 48 AXES OH 212 P 12 QRSd 90 QRS -28 QT 450 T 20 QTc 402 Conclusion Marked sinus bradycardia with 1st degree AV block Minimal voltage criteria for LVH, may be normal variant Abnormal ECG Electronically signed by : Tim Borrero MD 11/03/2021 09:07:18
--- NOTE | 2021-11-02 16:05 | HMH.EDGENADL ---
ED Disposition Clinical Impression: Vertigo Disposition: Home, Self-Care Condition on Discharge: Good Instructions: DI for Vertigo Additional Instructions: Meclizine as prescribed. Follow-up with Dr. Patel in the office this week, call Thursday for appointment. Return to the emergency room if unable to walk or new symptoms such as double vision, loss of vision, difficulty speaking, numbness or weakness of arms or legs. Prescriptions: Meclizine HCl [Antivert 25mg tablet] 25 mg PO TIDP PRN #15 tab PRN Reason: Vertigo Transmission Status: Pending to [id number] Referrals: Chris Patel MD [Primary Care Provider] - - Critical Care Critical Care Time: No Attestation: On 11/02/21, the high probability of a clinically significant, sudden or life threatening deterioration of the following system(s) required my full and direct attention, intervention and personal management. The time I documented below is in addition to time spent performing reported procedures but includes the following listed in this critical care notation. Medical Decision Making - Henrique Inquiry Pt receiving controlled substance: No Vital Signs: 11/02/21 12:37 Temperature 98.1 F Temperature Source Oral Pulse Rate [Right Radial] 55 L Respiratory Rate 18 Blood Pressure [Right Arm] 172/84 H Blood Pressure Mean [Right Arm] 113 Blood Pressure Source [Right Arm] Automatic Cuff Blood Pressure Position [Right Arm] Sitting 02 Sat by Pulse Oximetry 96 Oxygen Delivery Method Room Air - Lab Data Lab Results 11/02/21 13:00: WBC 5.9, RBC 3.83 L, Hgb 11.3 L, Hct 35.8 L, MCV 93.5, MCH 29.4, MCHC 31.5 L, RDW 12.8, Plt Count 233, MPV 8.7, Neut % (Auto) 64.1, Lymph % (Auto) 23.7, [place] % (Auto) 8.6, Eos % (Auto) 2.6, Baso % (Auto) 0.9, Neut # (Auto) 3.8, Lymph # (Auto) 1.4, [place] # (Auto) 0.5, Eos # (Auto) 0.2, Baso # (Auto) 0.1 11/02/21 13:00: Sodium 139, Potassium 4.1, Chloride 103, Carbon Dioxide 29, Anion Gap 11.1, BUN 34 H, Creatinine 2.00 H, Estimated Creat Clear 29, Estimated GFR 32 L, Est GFR ( Amer) 39 L, Glucose 139 H, Calcium 8.6, Total Bilirubin 0.5, AST 25, ALT 11 L, Alkaline Phosphatase 86, Total Protein 6.4, Albumin 3.6, Globulin 2.8, Albumin/Globulin Ratio 1.3 11/02/21 13:11: Urine Color Yellow, Urine Appearance Clear, Urine pH 6.0, Ur Specific [place] 1.020, Urine Protein Negative, Urine Glucose (UA) Negative, Urine Ketones Negative, Urine Blood Trace-i, Urine Nitrate Negative, Urine Bilirubin Negative, Urine Urobilinogen 0.2, Ur Leukocyte Esterase Negative, Urine RBC Occasional, Urine WBC None, Ur Squamous Epith Cells None, Urine Bacteria None Result diagrams: 11/02/21 13:00 11/02/21 13:00 - Radiology Data #1 Image(s): Chest Image Reviewed: Yes I have reviewed radiologist's interpretation PROCEDURE INFORMATION: Exam: XR Chest Exam date and time: 11/02/2021 12:50 PM Age: 86 years old Clinical indication: Other: Weakness and dizziness; Additional info: Weakness, dizziness, off balance TECHNIQUE: Imaging protocol: XR of the chest. Upright portable AP exam 1:47 p.m. Views: 1 view. COMPARISON: CR XR CHEST PORTABLE 08/27/2019 2:26 PM FINDINGS: Lungs: No acute pulmonary findings. No pulmonary consolidation. Lung volumes within normal limits. Pulmonary vessels do not appear significantly congested. Pleural spaces: Unremarkable. No significant pleural effusion. No pneumothorax. Heart/Mediastinum: Cardiac size is appears within upper normal limits, considering portable AP film technique. Calcified plaques in the aortic arch. Overlying electronic cardiac surgeon device. Bones/joints: There are spinal degenerative changes, with multilevel disc narrrowing and spondylosis. IMPRESSION: 1. No acute findings. 2. Non emergency and chronic findings as above. - CT Data CT Scan: Head Time Received: 16:[address] Reviewed:
[2021-11-02 16:48] VITALS: BP 158/89; PULSE 52; RESP 16; TEMP 36.7; O2SAT 97
== END 2021-11-02 16:50 | disposition home or self-care (01) ==
PROVIDERS: Emergency Provider Emergency Medicine; PCP Family Medicine
DX: R42 Dizziness and giddiness (principal); F41.9 Anxiety disorder, unspecified; E11.9 Type 2 diabetes mellitus without complications; K21.9 Gastro-esophageal reflux disease without esophagitis; I10 Essential (primary) hypertension; G40.909 Epilepsy, unspecified, not intractable, without status epilepticus; Z79.899 Other long term (current) drug therapy
CPT/HCPCS: 70450; 71045; 80053; 81001; 85025; 93005; 99283

== ENCOUNTER → 2022-01-03 14:47 | Outpatient (CLI) | payer MEDICARE, SELFPAY ==
--- NOTE | 2022-01-03 14:51 | US_ITS ---
FINAL REPORT TECHNIQUE: Ultrasound images of the kidneys and bladder were obtained. CLINICAL HISTORY: RENAL INSUFFICIENCY FINDINGS: The right kidney measures 10.5 cm in length. The left kidney measures 12.5 cm in length. There are multiple benign-appearing cysts in both kidneys with the largest on the right measuring 3.7 x 3.2 cm. There is mild left hydronephrosis. The spleen measures 9.8 cm and is unremarkable. IMPRESSION: Mild left hydronephrosis. Level of obstruction is unclear. Multiple benign-appearing cysts in both kidneys. Reviewed, Interpreted and Dictated by Robert Leonard MD Transcribed by Richelle Avila Authenticated by Robert Leonard MD on 01/03/2022 04:00:33 PM [facility]
== END ==
PROVIDERS: PCP Family Medicine; Visit Provider Family Medicine
DX: N28.9 Disorder of kidney and ureter, unspecified (principal)
CPT/HCPCS: 76770

== ENCOUNTER → 2022-01-24 13:27 | Outpatient (CLI) | payer MEDICARE, SELFPAY ==
--- NOTE | 2022-01-24 13:33 | CT_ITS ---
FINAL REPORT CLINICAL HISTORY: HYDRONEPHROSIS UNSPECIFIED FINDINGS: Axial CT images of the abdomen and pelvis were obtained without intravenous contrast. Coronal reformatted images were also obtained.This study was performed with techniques to keep radiation doses as low as reasonably achievable (ALARA). Individualized dose reduction techniques using automated exposure control or adjustment of mA and/or kV according to the patient's size were employed. Abdomen: There is a calcified granuloma in the left lung base. There is severe coronary artery calcification. There is no evidence of renal stone or hydronephrosis. There is evidence of cholecystectomy. The liver, spleen and pancreas have an unremarkable, unenhanced appearance. There are bilateral renal masses more numerous on the right measuring up to 3.9 cm. Largest on the left measures 1.8 cm. These cannot be accurately characterized without contrast but may represent cysts. There is moderate vascular calcification. No inflammatory process is identified. There is a moderate amount of retained stool. There are several sigmoid diverticula. Pelvis: Images of the pelvis reveal no evidence of ureteral dilation or ureteral stone. There is a left inguinal hernia containing fat. IMPRESSION: No renal or ureteral stone, or hydronephrosis. Bilateral renal masses cannot be accurately characterized but may represent cysts. Reviewed, Interpreted and Dictated by Tadeo Russo III, MD Transcribed by Noel Yuan Authenticated by Tadeo Russo III, MD on 01/24/2022 03:55:16 PM [facility]
== END ==
PROVIDERS: PCP Family Medicine; Visit Provider Family Medicine
DX: N13.30 Unspecified hydronephrosis (principal)
CPT/HCPCS: 74176

== ENCOUNTER 2022-08-24 14:51 | Emergency (ER) | payer MEDICARE, SELFPAY ==
--- NOTE | 2022-08-24 14:48 | ECG_ITS ---
APPROVED REPORT Exam: Resting ECG HR:59 bpm ECG Measurements Heart Rate 59 AXES OR 226 P 21 QRSd 86 QRS -21 QT 412 T 37 QTc 412 Conclusion SINUS BRADYCARDIA WITH FIRST DEGREE AV BLOCK BORDERLINE LEFT AXIS DEVIATION [QRS AXIS < -20] MINIMAL VOLTAGE CRITERIA FOR LVH, CONSIDER NORMAL VARIANT [MEETS CRITERIA IN ONE OF: R(aVL), S(V1), R(V5), R(V5/V6)+S(V1)] ABNORMAL ECG UNCONFIRMED REPORT Electronically signed by : Tim Borrero MD 08/25/2022 21:24:05
[2022-08-24 14:51] VITALS: BP 200/97; PULSE 57; RESP 18; TEMP 36.6; O2SAT 97; BMI 24.5
--- NOTE | 2022-08-24 15:12 | HMH.EDGENADL ---
Discharge Plan Disposition Patient Disposition: Home, Self-Care Condition: Good Prescriptions Prescriptions: New methocarbamol 500 mg tablet 500 mg PO HS Qty: 30 0RF No Action metoprolol succinate 50 mg tablet extended release 24 hr 50 mg PO DAILY alprazolam 0.25 mg tablet 0.25 mg PO DAILY PRN (Reason: Anxiety) clopidogrel 75 mg tablet 75 mg PO DAILY Qty: 90 3RF metformin 500 mg tablet 500 mg PO DAILY cyanocobalamin (vitamin B-12) 1,000 MCG tablet 1,000 mcg PO DAILY cholecalciferol (vitamin D3) 1,000 UNIT capsule 1,000 unit PO DAILY doxazosin 4 MG tablet 4 mg PO HS Referrals Follow up/Referrals: Provider,Referral, MD [Referring] - See instructions Activity Restrictions/Add. Instructions Additional Instructions/Restrictions: You were evaluated in the emergency department today for neck pain. 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 Take Tylenol at home as needed for pain in addition to Robaxin that was prescribed to you. Return to the emergency department for any new or worsening symptoms. Clinical Impressions Clinical Impression: Cervical radiculopathy, Hypertension Instructions Patient Instructions: DI for Atypical Chest Pain, DI for Cervical Radiculopathy Discharge ED Provider: Lynnette Colon General Adult HPI General Chief complaint: Chest Pain Stated complaint: chest pain Time Seen by Provider: 08/24/22 14:54 Mode of Arrival: Ambulatory Source of Information: Patient Limitations: No Limitations Description of Symptoms (Recalled from ER Triage Doc. by RN): c/o left breast pain for 2 weeks and gets worse with physical work with pain behind his shoulders and neck for 2 days. History of Present Illness HPI narrative: This patient is an 87-year-old male with a history of type 2 diabetes, hypertension, hyperlipidemia, CAD, anxiety, GERD, and chronic shoulder pain presented to the emergency department for evaluation of left-sided chest wall pain, bilateral shoulder pain, neck pain, and pain radiating down both of his arms. He states that the chest pain started a while ago and is sharp. He states that he has been seen in cardiology and is supposed to have a stress test. He states that nothing seems to make it better, but movement makes it worse. He also complains of severe neck pain radiating down both of his arms and shoulders that started 2 days ago and has acutely worsened since. He denies any traumatic injury or other concerns. The pain is sharp. He denies any weakness, numbness, tingling, or other concerns, but he does state that his hands seem to cramp up sometimes. He denies any fevers, chills, headaches, vision changes, cough, shortness of breath, abdominal pain, nausea, vomiting, changes in bowel movements, or other concerns. Related Data Home Medications Medication Instructions Recorded Confirmed cholecalciferol (vitamin D3) 25 1,000 unit PO DAILY Supplement 02/27/19 08/14/22 mcg (1,000 unit) capsule cyanocobalamin (vitamin B-12) 1,000 mcg PO DAILY Supplement 02/27/19 08/14/22 1,000 mcg tablet doxazosin 4 mg tablet 4 mg PO HS Hypertension 02/27/19 08/14/22 alprazolam 0.25 mg tablet 0.25 mg PO DAILY PRN Anxiety 11/15/19 08/14/22 metformin 500 mg tablet 500 mg PO DAILY Diabetes 08/01/20 08/14/22 metoprolol succinate 50 mg 50 mg PO DAILY HTN 08/14/22 08/14/22 tablet,extended release 24 hr Previous Rx's Medication Instructions Recorded clopidogrel 75 mg tablet 75 mg PO DAILY ANTI-PLATELET #90 11/15/19 tabs methocarbamol 500 mg tablet 500 mg PO HS #30 tabs 08/24/22 Allergies Allergy/AdvReac Type Severity Reaction Status Date / Time Penicillins Allergy Intermediate I-HIVES Verified 08/14/22 10:01 Sulfa (Sulfonamide Allergy Intermediate SORES IN Verified 08/14/22 10:01 Antibiotics) MOUTH [facility] Medical History
--- NOTE | 2022-08-24 15:18 | CT_ITS ---
PROCEDURE INFORMATION: Exam: CT Cervical Spine Without Contrast Exam date and time: 08/24/2022 3:54 PM Age: 87 years old Clinical indication: Neck pain; Additional info: Neck pain, bue weakness TECHNIQUE: Imaging protocol: Computed tomography of the cervical spine without contrast. Radiation optimization: All CT scans at this facility use at least one of these dose optimization techniques: automated exposure control; mA and/or kV adjustment per patient size (includes targeted exams where dose is matched to clinical indication); or iterative reconstruction. COMPARISON: US CA CAROTID DUPLEX BI 03/22/2020 6:50 AM FINDINGS: Bones/joints: The spine demonstrates moderate degenerative changes at multiple levels. There is multilevel foraminal compromise without significant narrowing of the central canal. There is no evidence of fracture or destructive process. Lungs: Lung apices are normal. Vasculature: The vasculature demonstrates diffuse moderate atherosclerotic calcification. Soft tissues: Unremarkable. IMPRESSION: 1. The spine demonstrates moderate degenerative changes at multiple levels. There is multilevel foraminal compromise without significant narrowing of the central canal. 2. There is no evidence of fracture or destructive process.
--- NOTE | 2022-08-24 15:18 | XR_ITS ---
PROCEDURE INFORMATION: Exam: XR Chest Exam date and time: 08/24/2022 4:24 PM Age: 87 years old Clinical indication: Chest wall pain; Additional info: Chest pain TECHNIQUE: Imaging protocol: Radiologic exam of the chest. Views: 1 view. COMPARISON: CT CHEST WO CON 08/24/2022 4:03 PM FINDINGS: Lungs: No lobar consolidation, pleural effusion or pulmonary edema. Pleural spaces: See Lungs finding. Heart/Mediastinum: Unremarkable. No cardiomegaly. Bones/joints: Unremarkable. IMPRESSION: No lobar consolidation, pleural effusion or pulmonary edema.
--- NOTE | 2022-08-24 15:18 | CT_ITS ---
PROCEDURE INFORMATION: Exam: CT Thoracic Spine Without Contrast Exam date and time: 08/24/2022 3:59 PM Age: 87 years old Clinical indication: Pain in thoracic spine; Without myelpathy or radiculopathy; Additional info: Neck pain, bue weakness TECHNIQUE: Imaging protocol: Computed tomography of the thoracic spine without contrast. Radiation optimization: All CT scans at this facility use at least one of these dose optimization techniques: automated exposure control; mA and/or kV adjustment per patient size (includes targeted exams where dose is matched to clinical indication); or iterative reconstruction. COMPARISON: CT CERVICAL SPINE WO CON 08/24/2022 3:54 PM FINDINGS: Bones/joints: No thoracic fracture or subluxation. Moderate thoracic spondylosis without CT evidence of significant stenosis. Soft tissues: Unremarkable. Vasculature: Atherosclerosis. IMPRESSION: No thoracic fracture or subluxation.
[2022-08-24 15:34] LABS: Basophils # 0.1 K/mm3 (0-0.2); Basophils % 1.4 % (0.1-2.0); Eosinophils # 0.2 K/mm3 (0.0-0.4); Eosinophils % 3.9 % (0.1-12.0); Hematocrit 36.8 % (42.0-52.0); Hemoglobin 11.9 g/dL (14.1-18.0); Lymphocytes # 1.8 K/mm3 (0.7-4.5); Lymphocytes % 30.2 % (10-50); Mean Corpuscular HGB Conc 32.2 g/dL (31.8-35.4); Mean Corpuscular Hemoglobin 29.5 pg (27.0-31.2); Mean Corpuscular Volume 91.5 fl (80-94); Mean Platelet Volume 7.9 fl (7.4-10.4); Monocytes # 0.6 K/mm3 (0.1-1.0); Monocytes % 9.2 % (1.7-9.3); Neutrophils # 3.4 K/mm3 (1.8-7.8); Neutrophils % 55.4 % (37.0-80.0); Platelet Count 238 K/mm3 (142-424); Red Blood Count 4.02 M/mm3 (4.60-6.20)
[2022-08-24 15:35] LABS: Chloride 103 mmol/L (98-107); Sodium 142 mmol/L (136-145)
[2022-08-24 15:36] LABS: Potassium 3.9 mmoL/L (3.5-5.1)
[2022-08-24 15:38] LABS: Blood Urea Nitrogen 29 mg/dl (9-20); Creatinine Clearance Estimated 33 mL/min (50-200); Estimated Glomerular Filt Rate 36 ml/min (>60); GFR (African American) 43 ML/MIN (>60)
[2022-08-24 15:39] LABS: Anion Gap 13.9 mEq/L (5-15); Calcium 8.3 mg/dl (8.4-10.2); Carbon Dioxide 29 mmol/L (22.0-30.0); Glucose 97 mg/dl (74-100)
[2022-08-24 15:51] LABS: Troponin I < 0.01 ng/ml (0.00-0.034)
--- NOTE | 2022-08-24 15:52 | CT_ITS ---
PROCEDURE INFORMATION: Exam: CT Neck Without Contrast Exam date and time: 08/24/2022 3:56 PM Age: 87 years old Clinical indication: Other: Chest pain; Additional info: Neck/chest pain TECHNIQUE: Imaging protocol: Computed tomography of the neck without contrast. Radiation optimization: All CT scans at this facility use at least one of these dose optimization techniques: automated exposure control; mA and/or kV adjustment per patient size (includes targeted exams where dose is matched to clinical indication); or iterative reconstruction. COMPARISON: CT CERVICAL SPINE WO CON 08/24/2022 3:54 PM FINDINGS: Pharynx: Unremarkable. No significant tonsillar enlargement. Larynx: Unremarkable. Epiglottis is normal. Prevertebral and retropharyngeal spaces: Unremarkable. Salivary glands: Normal. Glands are normal in size. Thyroid: The thyroid appears normal. Lymph nodes: Unremarkable. No lymphadenopathy. Trachea: Visualized trachea is unremarkable. Lungs: Patchy density mosaic lung pattern suggests small airways disease. Bones/joints: The spine demonstrates moderate degenerative changes at multiple levels with multilevel foraminal compromise but no significant narrowing of the spinal canal. Vasculature: The vasculature demonstrates diffuse moderate atherosclerotic calcification. Soft tissues: Unremarkable. No significant soft tissue swelling. IMPRESSION: The spine demonstrates moderate degenerative changes at multiple levels with multilevel foraminal compromise but no significant narrowing of the spinal canal.
--- NOTE | 2022-08-24 15:52 | CT_ITS ---
PROCEDURE INFORMATION: Exam: CT Chest Without Contrast; Diagnostic Exam date and time: 08/24/2022 4:03 PM Age: 87 years old Clinical indication: Chest pressure and chest wall pain; Additional info: Neck/chest pain TECHNIQUE: Imaging protocol: Diagnostic computed tomography of the chest without contrast. Radiation optimization: All CT scans at this facility use at least one of these dose optimization techniques: automated exposure control; mA and/or kV adjustment per patient size (includes targeted exams where dose is matched to clinical indication); or iterative reconstruction. COMPARISON: CHESTWW CT chest wo/w con 02/28/2019 3:06 PM FINDINGS: Lungs: See Pleural spaces finding. Pleural spaces: No lobar consolidation, pleural effusion or pulmonary edema. Heart: Coronary artery calcifications and stents. Mildly enlarged heart. Valvular calcifications. Lymph nodes: Unremarkable. No enlarged lymph nodes. Vasculature: Unremarkable. No aortic aneurysm. Bones/joints: No acute fracture. Soft tissues: Unremarkable. Other findings: No other acute disease seen on nonenhanced study. As Above. IMPRESSION: 1. No lobar consolidation, pleural effusion or pulmonary edema. 2. No other acute disease seen on nonenhanced study. As Above.
[2022-08-24 16:30] VITALS: BP 169/82; PULSE 57; O2SAT 96
[2022-08-24 16:56] LABS: Influenza A, PCR Not Detected (NotDetected); Influenza B, PCR Not Detected (NotDetected)
[2022-08-24 17:01] VITALS: BP 173/79; PULSE 47; RESP 15; O2SAT 95
[2022-08-24 17:20] LABS: Coronavirus 19, PCR Detected (NotDetected)
[2022-08-24 17:26] LABS: Troponin I < 0.01 ng/ml (0.00-0.034)
[2022-08-24 17:31] VITALS: BP 178/87; PULSE 49; RESP 20; O2SAT 95
[2022-08-24 18:01] VITALS: BP 185/81; PULSE 47; RESP 20; O2SAT 96
[2022-08-24 18:19] VITALS: BP 185/81; PULSE 48; RESP 16; TEMP 36.6; O2SAT 95
== END 2022-08-24 18:21 | disposition home or self-care (01) ==
PROVIDERS: Emergency Provider Emergency Medicine; PCP Family Medicine
DX: U07.1 COVID-19 (principal); M54.12 Radiculopathy, cervical region; M50.30 Other cervical disc degeneration, unspecified cervical region; R07.81 Pleurodynia; M25.512 Pain in left shoulder; M25.511 Pain in right shoulder; M79.602 Pain in left arm; M79.601 Pain in right arm; R55 Syncope and collapse; R94.31 Abnormal electrocardiogram [ECG] [EKG]; R94.39 Abnormal result of other cardiovascular function study; I10 Essential (primary) hypertension; I25.119 Atherosclerotic heart disease of native coronary artery with unspecified angina pectoris; I44.0 Atrioventricular block, first degree; K21.9 Gastro-esophageal reflux disease without esophagitis; M48.02 Spinal stenosis, cervical region; G89.29 Other chronic pain; N40.0 Benign prostatic hyperplasia without lower urinary tract symptoms; M19.90 Unspecified osteoarthritis, unspecified site; F41.9 Anxiety disorder, unspecified; Z79.02 Long term (current) use of antithrombotics/antiplatelets; Z79.84 Long term (current) use of oral hypoglycemic drugs; Z79.899 Other long term (current) drug therapy; Z88.0 Allergy status to penicillin; Z88.2 Allergy status to sulfonamides; Z95.5 Presence of coronary angioplasty implant and graft
CPT/HCPCS: 70490; 71045; 71250; 72125; 72128; 80048; 84484; 85025; 93005; 96374; 99285; C9803; U0003; U0005

== ENCOUNTER 2022-10-10 08:48 | Emergency (ER) | payer MEDICARE, SELFPAY ==
--- NOTE | 2022-10-10 08:57 | EXP.UTC ---
Discharge Plan Disposition Patient Disposition: Home, Self-Care Condition: Good Prescriptions Prescriptions: New cephalexin 500 mg capsule 500 mg PO QID Qty: 40 0RF mupirocin 2 % ointment 1 applic topical TID 7 Days Qty: 15 0RF No Action metoprolol succinate 50 mg tablet extended release 24 hr 50 mg PO DAILY alprazolam 0.25 mg tablet 0.25 mg PO DAILY PRN (Reason: Anxiety) clopidogrel 75 mg tablet 75 mg PO DAILY Qty: 90 3RF metformin 500 mg tablet 500 mg PO DAILY cyanocobalamin (vitamin B-12) 1,000 MCG tablet 1,000 mcg PO DAILY cholecalciferol (vitamin D3) 1,000 UNIT capsule 1,000 unit PO DAILY doxazosin 4 MG tablet 4 mg PO HS methocarbamol 500 mg tablet 500 mg PO HS Qty: 30 0RF Referrals Follow up/Referrals: Chris Patel MD [Primary Care Provider] - See instructions Activity Restrictions/Add. Instructions Additional Instructions/Restrictions: Drink plenty of fluids. Take tylenol or ibuprofen for pain or fever. Take the medications as directed. Follow up with your regular doctor. GO TO THE ER FOR ANY WORSENING SYMPTOMS Clinical Impressions Clinical Impression: Impetigo Instructions Patient Instructions: MARIVEL Lee for Impetigo Discharge ED Provider: Saeed Aviles [facility] General Stated complaint: Rash on head, neck and ear Time Seen by Provider: 10/10/22 09:38 History of Present Illness Provider Complaint: He states that for the past 10 days approx he has had scabbed tender areas on the back of his neck, the left side of his neck and his chin. Related Data Home Medications Medication Instructions Recorded Confirmed cholecalciferol (vitamin D3) 25 1,000 unit PO DAILY Supplement 02/27/19 08/14/22 mcg (1,000 unit) capsule cyanocobalamin (vitamin B-12) 1,000 mcg PO DAILY Supplement 02/27/19 08/14/22 1,000 mcg tablet doxazosin 4 mg tablet 4 mg PO HS Hypertension 02/27/19 08/14/22 alprazolam 0.25 mg tablet 0.25 mg PO DAILY PRN Anxiety 11/15/19 08/14/22 metformin 500 mg tablet 500 mg PO DAILY Diabetes 09/23/20 10/06/22 metoprolol succinate 50 mg 50 mg PO DAILY HTN 08/14/22 08/14/22 tablet,extended release 24 hr Previous Rx's Medication Instructions Recorded clopidogrel 75 mg tablet 75 mg PO DAILY ANTI-PLATELET #90 11/15/19 tabs methocarbamol 500 mg tablet 500 mg PO HS #30 tabs 08/24/22 cephalexin 500 mg capsule 500 mg PO QID #40 caps 10/10/22 mupirocin 2 % topical ointment 1 applic topical TID 7 days #15 10/10/22 grams Allergies Allergy/AdvReac Type Severity Reaction Status Date / Time Penicillins Allergy Intermediate I-HIVES Verified 10/10/22 09:47 Sulfa (Sulfonamide Allergy Intermediate SORES IN Verified 10/10/22 09:47 Antibiotics) MOUTH PFSH PFSH Disclaimer: The information contained in this section may have been updated after the patient was seen, as this information can be updated by other users. Medical History Abnormal EKG Abnormal stress test Angina, class IV Benign prostatic hyperplasia Encounter for pre-operative cardiovascular clearance Family history of heart disease Near syncope Osteoarthritis Surgical History Hx of heart artery stent Hx of inguinal hernia repair Family History Other Family history of hypertension Family history of myocardial infarction Social History Smoking Status: Never smoker second hand exposure: No alcohol intake: never substance use type: denies use current occupational status: retired Travel in the last 8 weeks: None household members: spouse housing: house lives independently: Yes marital status: current occupational exposures/hazards: No caffeine: Yes special patrick needs: No agree to jacobs
[2022-10-10 09:44] VITALS: BP 151/72; PULSE 65; RESP 18; TEMP 37.1; O2SAT 97; BMI 24.7
[2022-10-10 10:33] VITALS: BP 151/72; PULSE 65; RESP 18; TEMP 37.1
== END 2022-10-10 10:35 | disposition home or self-care (01) ==
PROVIDERS: Emergency Provider Nurse Practitioner Family; PCP Family Medicine
DX: L01.00 Impetigo, unspecified (principal); Z88.0 Allergy status to penicillin; Z88.2 Allergy status to sulfonamides; B95.7 Other staphylococcus as the cause of diseases classified elsewhere
CPT/HCPCS: 87070; 87077; 87186; 87205; 99212; G0463

== ENCOUNTER 2022-12-27 12:28 | Emergency (ER) | payer MEDICARE, SELFPAY ==
--- NOTE | 2022-12-27 12:34 | ECG_ITS ---
APPROVED REPORT Exam: Resting ECG HR:58 bpm ECG Measurements Heart Rate 58 AXES VT 197 P -4 QRSd 83 QRS -4 QT 416 T 46 QTc 414 Conclusion SINUS BRADYCARDIA BORDERLINE ECG UNCONFIRMED REPORT Electronically signed by : Tim Borrero MD 12/29/2022 18:56:55
[2022-12-27 12:44] LABS: POC Glucose,Bedside 128 (70-110)
[2022-12-27 12:57] VITALS: BP 193/106; PULSE 62; RESP 16; TEMP 36.9; O2SAT 95; BMI 24.4
--- NOTE | 2022-12-27 13:29 | PC.NURSE ---
ROUNDED ON PT HE WAS LITTLE COLD SO I GAVE HIM A WARM BLANKET NO OTHER COMPLAINTS AT THIS TIME
[2022-12-27 13:30] VITALS: BP 188/86; PULSE 50; O2SAT 94
[2022-12-27 13:34] LABS: Basophils # 0.1 K/mm3 (0-0.2); Eosinophils # 0.2 K/mm3 (0.0-0.4); Hematocrit 34.7 % (42.0-52.0); Hemoglobin 11.5 g/dL (14.1-18.0); Lymphocytes # 1.5 K/mm3 (0.7-4.5); Lymphocytes % 25.7 % (10-50); Mean Corpuscular HGB Conc 33.1 g/dL (31.8-35.4); Mean Corpuscular Hemoglobin 29.6 pg (27.0-31.2); Mean Corpuscular Volume 89.6 fl (80-94); Mean Platelet Volume 8.2 fl (7.4-10.4); Monocytes # 0.4 K/mm3 (0.1-1.0); Monocytes % 7.4 % (1.7-9.3); Neutrophils # 3.7 K/mm3 (1.8-7.8); Neutrophils % 62.9 % (37.0-80.0); Platelet Count 229 K/mm3 (142-424); Red Blood Count 3.88 M/mm3 (4.60-6.20); Red Cell Distribution Width 13.4 % (11.5-17.5); White Blood Count 5.9 K/mm3 (4.8-10.8)
[2022-12-27 13:42] LABS: Chloride 109 mmol/L (98-107)
[2022-12-27 13:43] LABS: Potassium 4.2 mmoL/L (3.5-5.1); Sodium 143 mmol/L (136-145)
[2022-12-27 13:45] LABS: Alanine Aminotransferase 20 U/L (12-78); Alkaline Phosphatase 105 U/L (38-126); Aspartate Amino Transferase 32 U/L (17-59); Bilirubin,Total 0.6 mg/dl (0.2-1.3); Blood Urea Nitrogen 36 mg/dl (9-20); Creatinine Clearance Estimated 29 mL/min (50-200); Estimated Glomerular Filt Rate 32 ml/min (>60); GFR (African American) 38 ML/MIN (>60)
[2022-12-27 13:46] LABS: Albumin Level 3.9 g/dl (3.5-5.0); Albumin/Globulin Ratio 1.3 (1.1-1.8); Anion Gap 9.2 mEq/L (5-15); Calcium 8.6 mg/dl (8.4-10.2); Carbon Dioxide 29 mmol/L (22.0-30.0); Globulin 3.1 g/dL (1.3-3.2); Glucose 131 mg/dl (74-100)
--- NOTE | 2022-12-27 13:55 | PC.NURSE ---
AT BEDSIDE NO COMPLAINTS AT THIS TIME
[2022-12-27 14:02] VITALS: BP 154/84; PULSE 53; O2SAT 94
--- NOTE | 2022-12-27 14:02 | HMH.EDGENADL ---
Discharge Plan Disposition Patient Disposition: Home, Self-Care Condition: Good Prescriptions Prescriptions: New clindamycin HCl 300 mg capsule 300 mg PO QID Qty: 28 0RF hydrocodone-acetaminophen 5-325 mg tablet 1 tab PO Q6H PRN (Reason: pain) Qty: 10 0RF No Action metoprolol succinate 50 mg tablet extended release 24 hr 50 mg PO DAILY alprazolam 0.25 mg tablet 0.25 mg PO DAILY PRN (Reason: Anxiety) clopidogrel 75 mg tablet 75 mg PO DAILY Qty: 90 3RF metformin 500 mg tablet 500 mg PO DAILY cyanocobalamin (vitamin B-12) 1,000 MCG tablet 1,000 mcg PO DAILY cholecalciferol (vitamin D3) 1,000 UNIT capsule 1,000 unit PO DAILY doxazosin 4 MG tablet 4 mg PO HS methocarbamol 500 mg tablet 500 mg PO HS Qty: 30 0RF cephalexin 500 mg capsule 500 mg PO QID Qty: 40 0RF mupirocin 2 % ointment 1 applic topical TID 7 Days Qty: 15 0RF Referrals Follow up/Referrals: Chris Patel MD [Primary Care Provider] - See instructions Activity Restrictions/Add. Instructions Additional Instructions/Restrictions: Clindamycin as prescribed. [place] as needed for pain. Follow-up with your primary care provider for further treatment of your blood pressure. Additional instructions for DENTAL PROBLEMS: See a dentist as soon as possible for further evaluation. Return immediately if you have an uncontrollable fever greater than 102 degrees, difficulty breathing or shortness of breath, persistent vomiting, or inability to swallow. Clinical Impressions Clinical Impression: Pain, dental, Hypertension Instructions Patient Instructions: DI for Dental Pain, DI for High Blood Pressure Discharge ED Provider: Reggie Shelley General Adult HPI General Chief complaint: PAIN Stated complaint: LT head and mouth pain Time Seen by Provider: 12/27/22 14:00 Mode of Arrival: Wheelchair Source of Information: Patient and Spouse Limitations: No Limitations Description of Symptoms (Recalled from ER Triage Doc. by RN): pt comes in with c/o left sided facial/jaw pain. also complains of pain radiating into neck, shoulder. pt reports all over weakness. last night pt reports blood pressure readings at home were elevated. History of Present Illness HPI narrative: The patient has several different complaints. He is main complaint is that he has pain in his left lower jaw since about Thursday 4 days ago. The pain is constant. His bottom left teeth hurt. The pain in his teeth increases with chewing. He has not had any facial swelling or fever but he notices that his left jaw is tender over the area of the painful tooth. He says he has an appointment to see his dentist this coming Thursday. He says he also has been having a sensation that he can hear his heart beating in his left ear for the past 6 to 7 months. He says he has mentioned it to his primary care doctor who did not seem to think anything of it. He also complains of gas problems. Says that he gets some discomfort in his chest and it feels like when a valve opens in his throat it relieves the symptoms. He wonders whether he needs an upper GI. Related Data Home Medications Medication Instructions Recorded Confirmed cholecalciferol (vitamin D3) 25 1,000 unit PO DAILY Supplement 02/27/19 08/14/22 mcg (1,000 unit) capsule cyanocobalamin (vitamin B-12) 1,000 mcg PO DAILY Supplement 02/27/19 08/14/22 1,000 mcg tablet doxazosin 4 mg tablet 4 mg PO HS Hypertension 02/27/19 08/14/22 alprazolam 0.25 mg tablet 0.25 mg PO DAILY PRN Anxiety 11/15/19 08/14/22 metformin 500 mg tablet 500 mg PO DAILY Diabetes 08/01/20 08/14/22 metoprolol succinate 50 mg 50 mg PO DAILY HTN 08/14/22 08/14/22 tablet,extended release 24 hr Previous Rx's Medication Instructions Recorded clopidogrel 75 mg tablet 75 mg PO DAILY ANTI-PLATELET #90 11/15/19 tabs methocarbamol 500 mg tablet 500 mg PO HS #30 tabs 08/24/22 cephalexin 500 mg ca
--- NOTE | 2022-12-27 14:04 | PC.NURSE ---
ER AT BEDSIDE
[2022-12-27 14:21] LABS: Troponin I < 0.01 ng/ml (0.00-0.034)
--- NOTE | 2022-12-27 14:28 | PC.NURSE ---
CHECKED ON PT NO COMPLAINTS AT THIS TIME AT BEDSIDE
[2022-12-27 14:30] VITALS: BP 184/84; PULSE 53; O2SAT 97
--- NOTE | 2022-12-27 14:40 | PC.NURSE ---
ER AT BEDSIDE
--- NOTE | 2022-12-27 14:45 | PC.NURSE ---
CALLED CLINIC PHARMACY TO ASK IF WE SENT OVER PRESCRIPTION FOR PT IF THEY COULD FILL THEM BEFORE THEY CLOSE THEY SAID LONG IT IS RECEIVED BEFORE [address] ARTEAGA IS SENDING IT OVER
[2022-12-27 14:54] VITALS: BP 184/84; PULSE 53; RESP 16; TEMP 36.9
== END 2022-12-27 14:56 | disposition home or self-care (01) ==
PROVIDERS: Emergency Provider Emergency Medicine; PCP Family Medicine
DX: K08.89 Other specified disorders of teeth and supporting structures (principal); R51.9 Headache, unspecified; I10 Essential (primary) hypertension; Z82.49 Family history of ischemic heart disease and other diseases of the circulatory system; Z86.79 Personal history of other diseases of the circulatory system; N40.0 Benign prostatic hyperplasia without lower urinary tract symptoms; M19.90 Unspecified osteoarthritis, unspecified site; Z87.19 Personal history of other diseases of the digestive system
CPT/HCPCS: 80053; 82962; 84484; 85025; 93005; 99285

== ENCOUNTER 2023-04-15 02:58 | Emergency (ER) | payer MEDICARE, SELFPAY ==
[2023-04-15] VITALS (8 sets, daily range): BP systolic 118–191; BP diastolic 68–84; PULSE 53–59; RESP 16–18; TEMP 37.2; O2SAT 93–96; BMI 24.1
--- NOTE | 2023-04-15 03:09 | PC.NURSE ---
Dr. Stoll at
--- NOTE | 2023-04-15 03:21 | XR_ITS ---
PROCEDURE INFORMATION: Exam: XR Chest Exam date and time: 04/15/2023 3:57 AM Age: 88 years old Clinical indication: Other: Abd pain TECHNIQUE: Imaging protocol: Radiologic exam of the chest. Views: 2 views. COMPARISON: CR XR CHEST PORTABLE 08/24/2022 4:24 PM FINDINGS: Lungs: Unremarkable. No consolidation. Pleural spaces: Unremarkable. No pleural effusion. No pneumothorax. Heart/Mediastinum: Unremarkable. No cardiomegaly. Bones/joints: Unremarkable. IMPRESSION: No acute findings.
--- NOTE | 2023-04-15 03:21 | CT_ITS ---
PROCEDURE INFORMATION: Exam: CT Abdomen And Pelvis With Contrast Exam date and time: 04/15/2023 4:13 AM Age: 88 years old Clinical indication: Abdominal pain; Additional info: Abd pain TECHNIQUE: Imaging protocol: Computed tomography of the abdomen and pelvis with contrast. Radiation optimization: All CT scans at this facility use at least one of these dose optimization techniques: automated exposure control; mA and/or kV adjustment per patient size (includes targeted exams where dose is matched to clinical indication); or iterative reconstruction. Contrast material: ISOVUE; Contrast volume: 75 ml; Contrast route: IV; REPORTING DATA: Count of CT and Cardiac NM exams in prior 12 months: This patient has received 4 known CTs and 0 known cardiac nuclear medicine studies in the 12 months prior to the current study. COMPARISON: CT ABDOMEN PELVIS WO CON 01/24/2022 1:36 PM FINDINGS: Heart: Mitral annular calcifications. Liver: Normal. No mass. Gallbladder and bile ducts: Prior cholecystectomy. Prior cholecystectomy. Pancreas: Normal. No ductal dilation. Spleen: Normal. No splenomegaly. Adrenal glands: Normal. No mass. Kidneys and ureters: Bilateral renal cysts. Stomach and bowel: Unremarkable. No obstruction. No mucosal thickening. Appendix: No evidence of appendicitis. Intraperitoneal space: Unremarkable. No free air. No significant fluid collection. Vasculature: Unremarkable. No abdominal aortic aneurysm. Lymph nodes: Unremarkable. No enlarged lymph nodes. Urinary bladder: Mild bladder wall thickening likely secondary to outlet obstruction. Reproductive: Prostatomegaly. Bones/joints: Unremarkable. No acute fracture. Soft tissues: Unremarkable. IMPRESSION: 1. No acute process to explain the patient's abdominal pain. 2. Prior cholecystectomy. 3. Prostatomegaly and mild bladder wall thickening likely bladder outlet obstruction. COMMENTS: Consistent with the [employer]'s Incidental Findings Committee white paper (J Am Ramon Radiol 2018): Any incidental renal lesion less than 1 cm or classified as too small to characterize, or any incidental cystic renal lesion characterized as simple-appearing, is likely benign. No follow-up imaging is recommended for these lesions per consensus recommendations based on imaging criteria.
--- NOTE | 2023-04-15 03:21 | HMH.EDABDPAI ---
Discharge Plan Disposition Patient Disposition: Home, Self-Care Chief Complaint: Abdominal Pain Prescriptions Prescriptions: No Action metoprolol succinate 50 mg tablet extended release 24 hr 50 mg PO DAILY ferrous sulfate [FeroSul] 325 mg (65 mg iron) tablet 325 mg PO BID alprazolam 0.25 mg tablet 0.25 mg PO DAILY PRN (Reason: Anxiety) clopidogrel 75 mg tablet 75 mg PO DAILY Qty: 90 3RF cyanocobalamin (vitamin B-12) 1,000 MCG tablet 1,000 mcg PO DAILY cholecalciferol (vitamin D3) 1,000 UNIT capsule 1,000 unit PO DAILY doxazosin 4 MG tablet 4 mg PO HS mupirocin 2 % ointment 1 applic topical TID 7 Days Qty: 15 0RF Referrals Follow up/Referrals: Chris Patel MD [Primary Care Provider] - See instructions Clinical Impressions Clinical Impression: Costal margin pain Instructions Patient Instructions: DI for Acute Abdominal Pain Discharge ED Provider: Dodie (ED)Jayden Abdominal Pain HPI General Chief Complaint: Abdominal Pain Stated Complaint: Right side pain Time Seen by Provider: 04/15/23 03:05 Mode of Arrival: Ambulatory Source of Information: Patient, Spouse and Medical Record Limitations: No Limitations Description of Symptoms (Recalled from ER Triage Doc. 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 the pt states the pain started y aprox 1pm History of Present Illness HPI narrative: rt sided abd pain over the last 12 hrs with no fever/rash or trauma - MD complaint: abdominal pain Onset (ago): hour(s) Consistency: intermittent Location: RUQ Severity: moderate Quality: sharp Associated symptoms: denies other symptoms Related Data Home Medications Medication Instructions Recorded Confirmed cholecalciferol (vitamin D3) 25 1,000 unit PO DAILY Supplement 02/27/19 03/18/23 mcg (1,000 unit) capsule cyanocobalamin (vitamin B-12) 1,000 mcg PO DAILY Supplement 02/27/19 03/18/23 1,000 mcg tablet doxazosin 4 mg tablet 4 mg PO HS Hypertension 02/27/19 03/18/23 alprazolam 0.25 mg tablet 0.25 mg PO DAILY PRN Anxiety 11/15/19 03/18/23 metoprolol succinate 50 mg 50 mg PO DAILY HTN 08/14/22 03/18/23 tablet,extended release 24 hr ferrous sulfate 325 mg (65 mg 325 mg PO BID 03/18/23 03/18/23 iron) tablet (FeroSul) Previous Rx's Medication Instructions Recorded clopidogrel 75 mg tablet 75 mg PO DAILY ANTI-PLATELET #90 11/15/19 tabs mupirocin 2 % topical ointment 1 applic topical TID 7 days #15 10/10/22 grams Allergies Allergy/AdvReac Type Severity Reaction Status Date / Time Penicillins Allergy Intermediate I-HIVES Verified 03/18/23 10:54 Sulfa (Sulfonamide Allergy Intermediate SORES IN Verified 03/18/23 10:54 Antibiotics) MOUTH PFSH PFSH Disclaimer: The information contained in this section may have been updated after the patient was seen, as this information can be updated by other users. Medical History Abnormal EKG Abnormal stress test Angina, class IV Benign prostatic hyperplasia Encounter for pre-operative cardiovascular clearance Family history of heart disease Near syncope Osteoarthritis Surgical History Hx of heart artery stent Hx of inguinal hernia repair Family History Other Family history of hypertension Family history of myocardial infarction Social History Smoking Status: Never smoker second hand exposure: No alcohol intake: never substance use type: denies use current occupational status: retired Travel in the last 8 weeks: None household members: spouse housing: house lives independently: Yes marital status: current occupational exposures/hazards: No caffeine: Yes special patrick needs: No agree to transf
[2023-04-15 03:41] LABS: Basophils % 0.7 % (0.1-2.0); Eosinophils # 0.2 K/mm3 (0.0-0.4); Eosinophils % 3.8 % (0.1-12.0); Hematocrit 35.2 % (42.0-52.0); Hemoglobin 11.4 g/dL (14.1-18.0); Lymphocytes # 1.8 K/mm3 (0.7-4.5); Lymphocytes % 33.1 % (10-50); Mean Corpuscular HGB Conc 32.4 g/dL (31.8-35.4); Mean Corpuscular Hemoglobin 29.5 pg (27.0-31.2); Mean Platelet Volume 7.9 fl (7.4-10.4); Monocytes # 0.6 K/mm3 (0.1-1.0); Monocytes % 9.9 % (1.7-9.3); Neutrophils # 2.9 K/mm3 (1.8-7.8); Neutrophils % 52.4 % (37.0-80.0); Platelet Count 219 K/mm3 (142-424); Red Blood Count 3.87 M/mm3 (4.60-6.20); Red Cell Distribution Width 13.1 % (11.5-17.5); White Blood Count 5.5 K/mm3 (4.8-10.8)
[2023-04-15 03:43] LABS: Chloride 104 mmol/L (98-107); Sodium 141 mmol/L (136-145)
[2023-04-15 03:44] LABS: Potassium 3.8 mmoL/L (3.5-5.1)
[2023-04-15 03:46] LABS: Alanine Aminotransferase 17 U/L (12-78); Alkaline Phosphatase 79 U/L (38-126); Amylase 100 U/L (30-110); Anion Gap 12.8 mEq/L (5-15); Aspartate Amino Transferase 30 U/L (17-59); Bilirubin,Total 0.5 mg/dl (0.2-1.3); Blood Urea Nitrogen 39 mg/dl (9-20); Calcium 8.6 mg/dl (8.4-10.2); Carbon Dioxide 28 mmol/L (22.0-30.0); Creatinine Clearance Estimated 30 mL/min (50-200); Estimated Glomerular Filt Rate 34 ml/min (>60); GFR (African American) 41 ML/MIN (>60); Glucose 122 mg/dl (74-100); Lipase 176 U/L (23-300)
[2023-04-15 03:47] LABS: Albumin Level 3.7 g/dl (3.5-5.0); Albumin/Globulin Ratio 1.2 (1.1-1.8); Total Protein,Serum 6.7 g/dl (6.3-8.2)
[2023-04-15 04:33] LABS: Microscopic, Urine URINE MICROSCOPIC (MICROSCOPIC)
[2023-04-15 04:37] LABS: Appearance,Urine CLEAR (Clear); Bilirubin,Urine Negative (Negative); Blood, Urine TRACE-I (Negative); Color,Urine YELLOW (Yellow); Glucose,Urine (UA) Negative (Negative); Ketones,Urine Negative (Negative); Leukocyte Esterase,Urine Negative (Negative); Nitrate,Urine Negative (Negative); Protein,Urine Negative (Negative); Urobilinogen,Urine 0.2 EU/dl (0.2)
[2023-04-15 04:54] LABS: Bacteria,Urine Trace /lpf; WBC,Urine Occasional #/hpf (0-3)
== END 2023-04-15 06:20 | disposition home or self-care (01) ==
PROVIDERS: Emergency Provider Emergency Medicine; PCP Family Medicine
DX: R10.11 Right upper quadrant pain (principal); R10.31 Right lower quadrant pain; R11.0 Nausea; I20.9 Angina pectoris, unspecified; N40.0 Benign prostatic hyperplasia without lower urinary tract symptoms
CPT/HCPCS: 71046; 74177; 78452; 80053; 81001; 82150; 83690; 85025; 93017; 93306; 96361; 96374; 96375; 99284; 99285; A9502; J0131; J2405; J2785; Q9967

== ENCOUNTER → 2023-04-15 10:11 | Outpatient (CLI) | payer MEDICARE, SELFPAY ==
--- NOTE | 2023-04-15 10:59 | NM_ITS ---
APPROVED REPORT Exam: Nuclear Stress Test Indication: SOB, CAD, HTN, DM, High cholesterol, Family history Patient Location: Outpatient Stress Tech: Jamila Moran [place] Tech:Jody Schafer, ARRT, RT (R)(N) Ht: 5 ft 11 in Wt: 173 lbs HR: 52 bpm BP: 170/78 mmHg BSA: 1.98 m2 Rhythm: NSR TID: 0.99 BMI: 24.1 History: SOB, CAD, HTN, DM, High cholesterol, Family history Procedure: Patient received 0.4 mg of intravenous Lexiscan, resting heart rate 52 bpm, resting blood pressure 170/78 mmHg, with Lexiscan maximum heart rate achieved was 74 bpm which is 56 % of the maximum predicted heart rate and blood pressure was 170/78 mmHg. With Lexiscan, patient denied any complaint of chest pain. Patient was not able to lay in prone position for those images, they were not performed. Cardiac Stress and Resting SPECT Images: Cardiac Stress and Resting SPECT images were obtained using technetium 99m Myoview 32.1 mCi stress and 10.62 mCi at rest. There is significant motion during acquisition of the SPECT images. Prone stress imaging is not performed due to patient inability to lay in prone position. Therefore, the diagnostic capacity may be affected. Resting and stress imaging in supine position demonstrate a large-size, moderate, partially reversible defect in the inferior and inferolateral LV wall, a large-sized, mild, fixed perfusion defect in the anterior LV wall, and a medium-sized, moderate, reversible perfusion defect in the basal to mid lateral LV wall. Gated imaging demonstrates a normal global LV systolic function. There is mild hypokinesis present in the inferior, inferolateral, and lateral LV faith. LVEF is calculated at 63%. Conclusion: There is significant motion during acquisition of the SPECT images. Prone stress imaging is not performed due to patient inability to lay in prone position. Therefore, the diagnostic capacity may be affected. 1) Large-sized, moderate, partially reversible defect in the inferior and inferolateral LV wall, 2) large-sized, mild, fixed perfusion defect in the anterior LV wall, and 3) medium-sized, moderate, reversible perfusion defect in the basal to mid lateral LV wall. These findings are suggestive of both reversible ischemia and prior infarct. Gated imaging demonstrates a normal global LV systolic function. There is mild hypokinesis present in the inferior, inferolateral, and lateral LV faith. LVEF is calculated at 63%. Electronically signed by : Jackelyn Muller, 04/17/2023 10:32:42
--- NOTE | 2023-04-15 10:59 | CA_ITS ---
APPROVED REPORT Exam: Pharmacologic Technologist: Jamila Menendez, Ht: 6 ft 0 in Wt: 173 lbs BSA: 2.00 m2 HR: 50 bpm BP: 170/78 mmHg Rhythm: NSR Indications: SOA Medical History Medications: Alprazolam,,,,, Metoprolol,,,,, Ferrous sulfate,,,,, Vit D3,,,,, CloPIdogrel,,,,, Vit B12,,,,, DOxazosin,,,,, Stress Test Details Test: LEXISCAN Reason for pharmacologic stress test: physical limitation. HR Resting HR: 52 bpm Max Heart Rate (APMHR): 132 bpm Max HR Achieved: 74 bpm Target HR (85% APMHR): 112 bpm % of APMHR: 56 Recovery HR: 68 bpm BP Resting BP: 170.0/78.0 mmHg Max BP: 170.0/78.0 mmHg Recovery BP: 146.0/73.0 mmHg ECG Resting ECG: sinus bradycardia Stress ECG: No ST changes Arrhythmia: None Recovery ECG: No ST changes Recovery Arrhythmia: None Clinical Exercise duration: 04:00 min Highest Stage Achieved: Stress ECG Conclusion Symptoms: very mild stomach & head discomfort. No CP. Arrhythmias/Ectopy: None ST-T Changes: No significant changes. Conclusion: Unremarkable Lexiscan stress. Myoview images reported separately. Test Summary REST 04:21 . . 52 . 170/ 78 . . Stage 1 01:00 . . 60 . . . . Stage 2 01:00 . . 69 . 128/ 59 . . Stage 3 01:00 . . 69 . 132/ 63 . . Stage 4 01:00 . . 69 . 138/ 60 . Stop exercise at 04:00 RECOVERY 01:00 . . 70 . 137/ 70 . . RECOVERY 02:00 . . 73 . 137/ 70 . . RECOVERY 03:00 . . 71 . 139/ 69 . . RECOVERY 03:58 . . 69 . 146/ 73 . . Electronically signed by : Jackelyn Muller, 04/17/2023 10:21:44
--- NOTE | 2023-04-15 12:45 | HMH.ITSHM ---
Current Home Medications as stated by this patient Misael De La Cruz or authorization representative. []MUPIROCIN METOPROLOL IRON DOXAZOSIN VITAMIN B12 CLOPIDOGREL VITAMIN D3 ALPRAZOLAM
== END ==
PROVIDERS: PCP Family Medicine; Visit Provider Physician Assistant
DX: E78.2 Mixed hyperlipidemia (principal); I10 Essential (primary) hypertension; I25.10 Atherosclerotic heart disease of native coronary artery without angina pectoris; I65.23 Occlusion and stenosis of bilateral carotid arteries; N28.9 Disorder of kidney and ureter, unspecified; Z01.810 Encounter for preprocedural cardiovascular examination; Z86.711 Personal history of pulmonary embolism; R06.02 Shortness of breath
CPT/HCPCS: 78452; 93017; 93306; A9502; J2785

== ENCOUNTER 2023-04-18 13:21 | Emergency (ER) | payer MEDICARE, SELFPAY ==
[2023-04-18 13:35] VITALS: BP 164/86; PULSE 65; RESP 18; TEMP 36.7; O2SAT 96; BMI 24.3
--- NOTE | 2023-04-18 14:09 | EXP.UTC ---
Discharge Plan Disposition Patient Disposition: Home, Self-Care Condition: Good Prescriptions Prescriptions: New prednisone 10 mg tablet 10 mg PO BID 3 Days Qty: 6 0RF No Action metoprolol succinate 50 mg tablet extended release 24 hr 50 mg PO DAILY ferrous sulfate [FeroSul] 325 mg (65 mg iron) tablet 325 mg PO BID alprazolam 0.25 mg tablet 0.25 mg PO DAILY PRN (Reason: Anxiety) clopidogrel 75 mg tablet 75 mg PO DAILY Qty: 90 3RF cyanocobalamin (vitamin B-12) 1,000 MCG tablet 1,000 mcg PO DAILY cholecalciferol (vitamin D3) 1,000 UNIT capsule 1,000 unit PO DAILY doxazosin 4 MG tablet 4 mg PO HS mupirocin 2 % ointment 1 applic topical TID 7 Days Qty: 15 0RF Referrals Follow up/Referrals: Chris Patel MD [Primary Care Provider] - See instructions Activity Restrictions/Add. Instructions Additional Instructions/Restrictions: rest Ice with cold pack for 20 minutes remove may repeat for comfort every hour you can take Tylenol every 4 hours as needed Follow-up immediately if new or worsening symptoms or no noticeable improvement over the next 3-5 days. call pcp thursday for a appointment Clinical Impressions Clinical Impression: Costal margin pain Instructions Patient Instructions: DI for Costochondritis Discharge ED Provider: Nkechi (RUST)[facility] HPI General Stated complaint: RT rib pain Mode of Arrival: Ambulatory Source of Information: Patient Limitations: No Limitations Time Seen by Provider: 04/18/23 14:10 Description of Symptoms (Recalled from Triage Doc. by RN): PATIENT C/O RIGHT SIDE PAIN THAT STARTED 4-5 DAYS AGO. NO KNOWN INJURY. DENIES ANY OTHER SYMPTOMS HEENT Symptoms (Recalled from RN notes): No Resp Symptoms (Recalled from RN notes): No Skin Symptoms (Recalled from RN notes): No MS Symptoms (Recalled from RN notes): Yes Functional Status (Recalled from RN notes): WNL History of Present Illness Provider Complaint: 88 yr old male presents for rt rib/flank pain. pt states he was seen in the ED a few days ago for the same thing and no improvement. pt states the day this pain started he was working in his garden bending over from a chair. pt states then he went in for a nap and when he woke up this pain was there. pt states pain is worse with movement and can palpate a area on ribs that causes pain Related Data Home Medications Medication Instructions Recorded Confirmed cholecalciferol (vitamin D3) 25 1,000 unit PO DAILY Supplement 02/27/19 03/18/23 mcg (1,000 unit) capsule cyanocobalamin (vitamin B-12) 1,000 mcg PO DAILY Supplement 02/27/19 03/18/23 1,000 mcg tablet doxazosin 4 mg tablet 4 mg PO HS Hypertension 02/27/19 03/18/23 alprazolam 0.25 mg tablet 0.25 mg PO DAILY PRN Anxiety 11/15/19 03/18/23 metoprolol succinate 50 mg 50 mg PO DAILY HTN 08/14/22 03/18/23 tablet,extended release 24 hr ferrous sulfate 325 mg (65 mg 325 mg PO BID 03/18/23 03/18/23 iron) tablet (FeroSul) Previous Rx's Medication Instructions Recorded clopidogrel 75 mg tablet 75 mg PO DAILY ANTI-PLATELET #90 11/15/19 tabs mupirocin 2 % topical ointment 1 applic topical TID 7 days #15 10/10/22 grams prednisone 10 mg tablet 10 mg PO BID 3 days #6 tabs 04/18/23 Allergies Allergy/AdvReac Type Severity Reaction Status Date / Time Penicillins Allergy Intermediate I-HIVES Verified 03/18/23 10:54 Sulfa (Sulfonamide Allergy Intermediate SORES IN Verified 03/18/23 10:54 Antibiotics) MOUTH Worker's Comp Is this a Worker's Comp case?: No [facility] Disclaimer: The information contained in this section may have been updated after the patient was seen, as this information can be updated by other users. 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
[2023-04-18 14:10] LABS: Apearance,Urine Clear (Clear); Bilirubin,Urine Negative (Negative); Blood, Urine 1+ (Negative); Color,Urine Yellow (Yellow); Glucose,Urine (UA) Negative (Negative); Ketones,Urine Negative (Negative); Protein,Urine Negative (Negative); UTC Leukocyte Esterase,Urine Negative (Negative); UTC Nitrate,Urine Negative (Negative); Urobilinogen,Urine 0.2 EU/dl (0.2)
[2023-04-18 14:15] VITALS: BP 164/86; PULSE 65; RESP 18; TEMP 36.7; O2SAT 96
== END 2023-04-18 14:26 | disposition home or self-care (01) ==
PROVIDERS: Emergency Provider Nurse Practitioner Family; PCP Family Medicine
DX: R07.81 Pleurodynia (principal); I20.9 Angina pectoris, unspecified; I10 Essential (primary) hypertension
CPT/HCPCS: 81003; 99212; 99214; G0463

== ENCOUNTER 2023-05-07 08:41 | Day surgery (SDC) | payer MEDICARE, SELFPAY ==
[2023-05-07] VITALS (27 sets, daily range): BP systolic 144–181; BP diastolic 53–92; PULSE 45–70; RESP 17–97; TEMP 37.1; O2SAT 92–99; BMI 25.5
--- NOTE | 2023-05-07 07:25 | IR_ITS ---
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 COMPLICATIONS None Estimated Blood Loss: Less than 10 ML TECHNIQUE One percent lidocaine used to anesthetize the right anterior aspect of the wrist. The right radial artery was accessed via the Seldinger technique. A 6 Georgian sheath was placed in the right radial artery. 150 mg magnesium sulfate, 800 mcg of nitroglycerin, 1mg Lidocaine and 5000 U Heparin were given through the arterial sheath. The papa catheter was advanced into the ascending aorta however due to the calcified and tortuous brachiocephalic artery and ascending aorta adequate torque of the catheter could not be applied and [place] arteries could not be engaged. Because of this One percent lidocaine was used to anesthetize the right groin. The right femoral artery was accessed via the Seldinger technique. A 4-Georgian sheath was placed in the right femoral artery. The JL-4 and JR-4 catheter was also used to perform left heart catheterization left ventriculogram and selective coronary angiogram. At the end of the procedure the patient was transferred to the post-op holding area in stable condition for arterial sheath removal. ANGIOGRAPHIC RESULTS The left main artery Normal The left anterior descending artery Has a proximal concentric 60 to 70% stenosis immediately proximal to a widely patent mid LAD stent. The remaining LAD is widely patent. A second diagonal artery is 2.75 mm in diameter and has an ostial concentric 90% stenosis The circumflex artery Is nondominant and gives rise to a large ramus intermedius which has proximal and mid vessel 30% stenoses. The circumflex artery itself has a mid vessel 50 and 60% stenosis The right coronary artery Is a dominant vessel and has proximal 30% stenosis with mid vessel 40 to 50% stenosis and distal 30% stenosis. A large 3 mm posterior descending artery has an ostial concentric calcified 90% stenosis Left renal artery singular and has nonocclusive mild atheromatous plaque Right renal artery is singular and has nonocclusive mild atheromatous plaque IMPRESSION Coronary disease as described above most notably in a large second diagonal artery as well as a large posterior descending artery Poorly controlled hypertension Nonflow limiting renal artery disease PLAN 1. At this point I favor medical management. Because of patient's creatinine of 2 I believe any percutaneous intervention would be fraught with high likelihood of renal failure which would severely diminished patient's quality of life and life expectancy. Because this is still branch disease and his ejection fraction is known to be normal I recommend maximizing antianginal medications and specifically controlling blood pressure 2. If patient's chest pain is refractory to medical management and he experiences recalcitrant angina pectoris only then what I consider stenting the diagonal artery and the LAD as well as the large posterior descending artery 3. From a cardiac standpoint patient is an acceptable risk to proceed with colonoscopy. Ejection fraction is normal therefore colonoscopy can proceed 4. Maximizing antianginals 5. LDL less than 55 to be achieved with high intensity statin Electronically signed by : Je Lama MD 05/07/2023 12:46:10
[2023-05-07 09:28] LABS: Basophils % 0.6 % (0.1-2.0); Eosinophils # 0.2 K/mm3 (0.0-0.4); Hematocrit 37.7 % (42.0-52.0); Hemoglobin 11.8 g/dL (14.1-18.0); Lymphocytes # 1.6 K/mm3 (0.7-4.5); Mean Corpuscular HGB Conc 31.4 g/dL (31.8-35.4); Mean Corpuscular Hemoglobin 29.1 pg (27.0-31.2); Mean Corpuscular Volume 92.6 fl (80-94); Mean Platelet Volume 7.6 fl (7.4-10.4); Monocytes # 0.6 K/mm3 (0.1-1.0); Monocytes % 9.9 % (1.7-9.3); Neutrophils # 3.6 K/mm3 (1.8-7.8); Neutrophils % 59.5 % (37.0-80.0); Platelet Count 241 K/mm3 (142-424); Red Blood Count 4.07 M/mm3 (4.60-6.20)
[2023-05-07 09:37] LABS: Blood Urea Nitrogen 39 mg/dl (9-20); Calcium 8.5 mg/dl (8.4-10.2); Carbon Dioxide 29 mmol/L (22.0-30.0); Chloride 102 mmol/L (98-107); Creatinine Clearance Estimated 29 mL/min (50-200); Estimated Glomerular Filt Rate 32 ml/min (>60); GFR (African American) 38 ML/MIN (>60); Glucose 149 mg/dl (74-100); Sodium 141 mmol/L (136-145)
[2023-05-07 09:44] LABS: INR 0.92 (0.9-1.1)
[2023-05-07 13:02] LABS: CATHL Activated Clotting Time 269 SEC (74-125)
[2023-05-07 13:04] LABS: CATHL Activated Clotting Time 196 SEC (74-125)
== END 2023-05-07 15:17 | disposition home or self-care (01) ==
PROVIDERS: PCP Family Medicine; Visit Provider Internal Medicine
DX: I25.118 Atherosclerotic heart disease of native coronary artery with other forms of angina pectoris (principal); Z86.711 Personal history of pulmonary embolism; E78.2 Mixed hyperlipidemia; I10 Essential (primary) hypertension; I65.23 Occlusion and stenosis of bilateral carotid arteries; R94.30 Abnormal result of cardiovascular function study, unspecified; Z01.810 Encounter for preprocedural cardiovascular examination
CPT/HCPCS: 36252; 80048; 85025; 85347; 85610; 93454; 99152; C1725; C1769; J1644; Q9967

== ENCOUNTER 2023-10-05 13:31 | Emergency (ER) | payer MEDICARE, SELFPAY ==
--- NOTE | 2023-10-05 14:07 | EXP.UTC ---
Discharge Plan Disposition Patient Disposition: Home, Self-Care Condition: Good Prescriptions Prescriptions: New methylprednisolone 4 mg Tablets,Dose Pack 4 mg PO DIRECTED Qty: 21 0RF permethrin 5 % cream 1 applic topical Q14D Qty: 60 0RF Rx Instructions: apply second treatment 14 days after first treatment if live lice remain No Action metoprolol succinate 50 mg tablet extended release 24 hr 50 mg PO DAILY ferrous sulfate [FeroSul] 325 mg (65 mg iron) tablet 325 mg PO BID metformin 500 mg tablet 500 mg PO DAILY alprazolam 0.25 mg tablet 0.25 mg PO DAILY PRN (Reason: Anxiety) clopidogrel 75 mg tablet 75 mg PO DAILY Qty: 90 3RF cyanocobalamin (vitamin B-12) 1,000 MCG tablet 1,000 mcg PO DAILY cholecalciferol (vitamin D3) 1,000 UNIT capsule 1,000 unit PO DAILY doxazosin 4 MG tablet 4 mg PO HS Referrals Follow up/Referrals: Sharlene Miller MD [Referring] - See instructions Chris Patel MD [Primary Care Provider] - See instructions Activity Restrictions/Add. Instructions Additional Instructions/Restrictions: Use the medications as directed. Follow up with your regular doctor. GO TO THE ER FOR ANY WORSENING SYMPTOMS Follow up with the retail team member (Dr. Jara) if your symptoms continue. Her office phone number will be on this paperwork. Please call and get an appointment. Clinical Impressions Clinical Impression: Chronic pruritus Instructions Patient Instructions: DI for Itching Discharge ED Provider: Saeed Aviles [facility] General Stated complaint: rash Time Seen by Provider: 10/05/23 14:07 History of Present Illness Provider Complaint: He states that for the past 3 weeks he has had generalized itching. At times he notices red splotchy areas on his skin. He is afraid his dog has gave him scabies. Related Data Home Medications Medication Instructions Recorded Confirmed cholecalciferol (vitamin D3) 25 1,000 unit PO DAILY Supplement 02/27/19 10/05/23 mcg (1,000 unit) capsule cyanocobalamin (vitamin B-12) 1,000 mcg PO DAILY Supplement 02/27/19 10/05/23 1,000 mcg tablet doxazosin 4 mg tablet 4 mg PO HS Hypertension 02/27/19 10/05/23 alprazolam 0.25 mg tablet 0.25 mg PO DAILY PRN Anxiety 11/15/19 10/05/23 metoprolol succinate 50 mg 50 mg PO DAILY HTN 08/14/22 10/05/23 tablet,extended release 24 hr ferrous sulfate 325 mg (65 mg 325 mg PO BID . 03/18/23 10/05/23 iron) tablet (FeroSul) metformin 500 mg tablet 500 mg PO DAILY 05/21/23 10/05/23 Previous Rx's Medication Instructions Recorded clopidogrel 75 mg tablet 75 mg PO DAILY ANTI-PLATELET #90 11/15/19 tabs methylprednisolone 4 mg tablets in 4 mg PO DIRECTED #21 tabs 10/05/23 a dose pack permethrin 5 % topical cream 1 applic topical Q14D 2 doses #60 10/05/23 grams Allergies Allergy/AdvReac Type Severity Reaction Status Date / Time Penicillins Allergy Intermediate I-HIVES Verified 10/05/23 14:26 Sulfa (Sulfonamide Allergy Intermediate SORES IN Verified 10/05/23 14:26 Antibiotics) MOUTH PFSH PFSH Disclaimer: The information contained in this section may have been updated after the patient was seen, as this information can be updated by other users. Medical History Abnormal EKG Abnormal result of cardiovascular function study Abnormal stress test Angina, class IV Benign prostatic hyperplasia Encounter for pre-operative cardiovascular clearance Family history of heart disease Near syncope Osteoarthritis Surgical History Hx of heart artery stent Hx of inguinal hernia repair Family History Other Family history of hypertension Family history of myocardial infarction Social History Smoking Status: Never smoker
[2023-10-05 14:10] VITALS: BP 166/70; PULSE 56; RESP 18; TEMP 36.6; O2SAT 96; BMI 23.7
[2023-10-05 14:36] VITALS: BP 166/70; PULSE 56; RESP 18; TEMP 36.6; O2SAT 96
== END 2023-10-05 14:36 | disposition home or self-care (01) ==
PROVIDERS: Emergency Provider Nurse Practitioner Family; PCP Family Medicine
DX: L29.9 Pruritus, unspecified (principal); I10 Essential (primary) hypertension; I20.9 Angina pectoris, unspecified
CPT/HCPCS: 99212; 99214; G0463

== ENCOUNTER 2024-02-17 14:01 | Emergency (ER) | payer MEDICARE, SELFPAY ==
[2024-02-17 14:30] VITALS: BP 148/60; PULSE 55; RESP 18; TEMP 36.7; O2SAT 96; BMI 24.0
--- NOTE | 2024-02-17 14:37 | EXP.UTC ---
Discharge Plan Disposition Patient Disposition: Home, Self-Care Condition: Good Prescriptions Prescriptions: New simethicone 80 mg tablet,chewable 80 mg PO TID PRN (Reason: abdominal distention) Qty: 30 0RF No Action metoprolol succinate 50 mg tablet extended release 24 hr 50 mg PO DAILY ferrous sulfate [FeroSul] 325 mg (65 mg iron) tablet 325 mg PO BID metformin 500 mg tablet 500 mg PO DAILY alprazolam 0.25 mg tablet 0.25 mg PO DAILY PRN (Reason: Anxiety) clopidogrel 75 mg tablet 75 mg PO DAILY Qty: 90 3RF cyanocobalamin (vitamin B-12) 1,000 MCG tablet 1,000 mcg PO DAILY cholecalciferol (vitamin D3) 1,000 UNIT capsule 1,000 unit PO DAILY doxazosin 4 MG tablet 4 mg PO HS glimepiride 2 mg tablet 2 mg PO DAILY Referrals Follow up/Referrals: Chris Patel MD [Primary Care Provider] - See instructions Activity Restrictions/Add. Instructions Additional Instructions/Restrictions: Drink plenty of fluids. Take tylenol for pain or fever. Take the simethicone as directed for your gas pains. Follow up with your regular doctor. GO TO THE ER FOR ANY WORSENING SYMPTOMS Clinical Impressions Clinical Impression: Gastritis, Abdominal gas pain Instructions Patient Instructions: Gastritis, [place] Diet, DI for Gastritis Discharge ED Provider: Saeed Aviles [facility] General Stated complaint: lot of gas, pain Time Seen by Provider: 02/17/24 14:35 History of Present Illness Provider Complaint: He states that for the past several weeks he has been having abdominal cramping and gas pains . He denies abdominal pain at this time. He states that he was referred to a GI specialist by his pcp for these symptoms. He saw the GI specialist last week, but he did not get any help for his symptoms. Related Data Home Medications Medication Instructions Recorded Confirmed cholecalciferol (vitamin D3) 25 1,000 unit PO DAILY Supplement 02/27/19 02/17/24 mcg (1,000 unit) capsule cyanocobalamin (vitamin B-12) 1,000 mcg PO DAILY Supplement 02/27/19 02/17/24 1,000 mcg tablet doxazosin 4 mg tablet 4 mg PO HS Hypertension 02/27/19 02/17/24 alprazolam 0.25 mg tablet 0.25 mg PO DAILY PRN Anxiety 11/15/19 02/17/24 metoprolol succinate 50 mg 50 mg PO DAILY HTN 08/14/22 02/17/24 tablet,extended release 24 hr ferrous sulfate 325 mg (65 mg 325 mg PO BID . 03/18/23 02/17/24 iron) tablet (FeroSul) metformin 500 mg tablet 500 mg PO DAILY 05/21/23 02/17/24 glimepiride 2 mg tablet 2 mg PO DAILY 02/17/24 02/17/24 Previous Rx's Medication Instructions Recorded clopidogrel 75 mg tablet 75 mg PO DAILY ANTI-PLATELET #90 11/15/19 tabs simethicone 80 mg chewable tablet 80 mg PO TID PRN abdominal 02/17/24 distention #30 tabs Allergies Allergy/AdvReac Type Severity Reaction Status Date / Time Penicillins Allergy Intermediate I-HIVES Verified 02/17/24 14:54 Sulfa (Sulfonamide Allergy Intermediate SORES IN Verified 02/17/24 14:54 Antibiotics) MOUTH PFSH PFSH Disclaimer: The information contained in this section may have been updated after the patient was seen, as this information can be updated by other users. Medical History Abnormal EKG Abnormal result of cardiovascular function study Abnormal stress test Angina, class IV Benign prostatic hyperplasia Encounter for pre-operative cardiovascular clearance Family history of heart disease Near syncope Osteoarthritis Surgical History Hx of heart artery stent Hx of inguinal hernia repair Family History Other Family history of hypertension Family history of myocardial infarction Social History Smoking Status: Never smoker second hand exposure: No alcohol intake: never substance use type: denies use current occupational status: retired Travel in the last 8 weeks: None household members: spouse housing: house lives independently: Yes marital status: current occupational exposures/hazards: No caffeine: Yes special patrick needs: No agree to transfusion: No do you feel safe at home: Yes victim of physical abuse: No victim of emotional abuse: No victim of sexual abuse: No would you like helpful sources: No ROS Obtained: Yes All systems reviewed & no additional complaints except as documented Constitutional Constitutional: Denies chills, Denies fever(s) and Reports poor appetite ENT Ears, Nose, Mouth, and Throat: Denies dizziness and Denies sore throat Cardiovascular Cardiovascular: Denies dyspnea Respiratory Respiratory: Denies chest congestion, Denies cough and Denies dyspnea Gastrointestinal Gastrointestingal: Reports as per HPI and cramping; Denies constipation, diarrhea, nausea or vomiting Musculoskeletal Musculoskeletal: Denies arthralgias Integumentary/Breasts Skin/Breast: Denies rash Neurologic Neurologic: Denies dizziness Physical Exam General General appearance: alert and in no apparent distress Head Head exam: atraumatic and normocephalic Eye Eye exam: Present normal appearance, PERRL and EOMI ENT ENT exam: Present normal exam, normal oropharynx, mucous membranes moist, TM's normal bilaterally and normal external ear exam Neck Neck exam: Present normal inspection, full ROM and trachea midline; Absent tenderness, meningismus or lymphadenopathy Chest Chest inspection: Present normal inspection and symmetric chest wall rise; Absent tenderness, rash or abscess Respiratory Respiratory exam: Present normal lung sounds bilaterally; Absent respiratory distress, wheezes or stridor Cardiovascular Cardiovascular exam: Present regular rate and normal rhythm; Absent irregular rhythm, systolic murmur, diastolic murmur or JVD Abdominal Exam Abdominal exam: Present soft and normal bowel sounds; Absent distention, tenderness, guarding, rebound, rigidity, psoas sign, obturator sign, heel tap sign, Rutledge's sign, Rovsing's sign or tenderness at McBurney's Point Extremities Exam Extremities exam: Present normal inspection and full ROM; Absent tenderness Back Exam Back exam: Present normal inspection and full ROM; Absent tenderness, CVA tenderness (R) or CVA tenderness (L) Neurological Exam Neurological exam: Present alert, oriented X3 and CN II-XII intact Psychiatric Psychiatric exam: Present normal affect and normal mood Skin Skin exam: Present warm, dry, intact and normal color Lymphatic Lymphatic Findings: no adenopathy Medical Decision Making Medical Records Medical records reviewed: No I reviewed the patient's medical records. [place] Inquiry Pt receiving controlled substance: No Lab Data Lab results reviewed: Yes I reviewed the patient's lab results. 02/17/24 15:15 02/17/24 15:15
[2024-02-17 15:01] LABS: Apearance,Urine Clear (Clear); Bilirubin,Urine Negative (Negative); Blood, Urine Trace (Negative); Color,Urine Yellow (Yellow); Glucose,Urine (UA) Negative (Negative); Ketones,Urine Negative (Negative); PH,Urine 5.5 (5.0-8.5); Protein,Urine Negative (Negative); Specific Gravity, Urine 1.005 (1.005-1.030); Urobilinogen,Urine 0.2 EU/dl (0.2)
[2024-02-17 15:02] LABS: UTC Leukocyte Esterase,Urine Negative (Negative); UTC Nitrate,Urine Negative (Negative)
--- NOTE | 2024-02-17 15:16 | PC.NURSE ---
Sent blood to lab via tube
[2024-02-17 15:30] LABS: Chloride 105 mmol/L (98-107); Potassium 4.2 mmoL/L (3.5-5.1); Sodium 136 mmol/L (136-145)
[2024-02-17 15:32] LABS: Amylase 97 U/L (30-110); Basophils # 0.1 K/mm3 (0-0.2); Basophils % 1.2 % (0.1-2.0); Eosinophils # 0.1 K/mm3 (0.0-0.4); Hematocrit 33.6 % (42.0-52.0); Hemoglobin 10.7 g/dL (14.1-18.0); Lymphocytes # 1.3 K/mm3 (0.7-4.5); Lymphocytes % 25.9 % (10-50); Mean Corpuscular HGB Conc 31.8 g/dL (31.8-35.4); Mean Corpuscular Hemoglobin 30.6 pg (27.0-31.2); Mean Corpuscular Volume 96.1 fl (80-94); Mean Platelet Volume 8.1 fl (7.4-10.4); Monocytes # 0.4 K/mm3 (0.1-1.0); Monocytes % 7.4 % (1.7-9.3); Neutrophils # 3.1 K/mm3 (1.8-7.8); Neutrophils % 63.5 % (37.0-80.0); Platelet Count 200 K/mm3 (142-424); Red Blood Count 3.49 M/mm3 (4.60-6.20); Red Cell Distribution Width 13.1 % (11.5-17.5); White Blood Count 4.9 K/mm3 (4.8-10.8)
[2024-02-17 15:33] LABS: Alanine Aminotransferase 15 U/L (12-78); Albumin Level 3.6 g/dl (3.5-5.0); Albumin/Globulin Ratio 1.3 (1.1-1.8); Alkaline Phosphatase 59 U/L (38-126); Anion Gap 6.2 mEq/L (5-15); Aspartate Amino Transferase 28 U/L (17-59); Bilirubin,Total 0.7 mg/dl (0.2-1.3); Blood Urea Nitrogen 41 mg/dl (9-20); Calcium 8.7 mg/dl (8.4-10.2); Carbon Dioxide 29 mmol/L (22.0-30.0); Creatinine Clearance Estimated 28 mL/min (50-200); Estimated Glomerular Filt Rate 32 ml/min (>60); GFR (African American) 38 ML/MIN (>60); Globulin 2.7 g/dL (1.3-3.2); Glucose 140 mg/dl (74-100); Lipase 139 U/L (23-300); Total Protein,Serum 6.3 g/dl (6.3-8.2)
[2024-02-17 16:22] VITALS: BP 148/60; PULSE 55; RESP 18; TEMP 36.7; O2SAT 96
== END 2024-02-17 16:22 | disposition home or self-care (01) ==
PROVIDERS: Emergency Provider Nurse Practitioner Family; PCP Family Medicine
DX: K29.70 Gastritis, unspecified, without bleeding (principal); R14.1 Gas pain; I11.9 Hypertensive heart disease without heart failure; I25.119 Atherosclerotic heart disease of native coronary artery with unspecified angina pectoris; Z95.5 Presence of coronary angioplasty implant and graft
CPT/HCPCS: 80053; 81003; 82150; 83690; 85025; 87086; 99212; 99214; G0463

== ENCOUNTER 2024-02-28 13:09 | Emergency (ER) | payer MEDICARE, SELFPAY ==
[2024-02-28] VITALS (8 sets, daily range): BP systolic 178–187; BP diastolic 79–89; PULSE 51–62; RESP 8–20; TEMP 36.7–36.9; O2SAT 94–98; BMI 23.7
--- NOTE | 2024-02-28 13:32 | ECG_ITS ---
APPROVED REPORT Exam: Resting ECG HR:55 bpm ECG Measurements Heart Rate 55 AXES NE 234 P 74 QRSd 90 QRS -13 QT 405 T 35 QTc 393 Conclusion SINUS BRADYCARDIA WITH FIRST DEGREE AV BLOCK MINIMAL VOLTAGE CRITERIA FOR LVH, CONSIDER NORMAL VARIANT [MEETS CRITERIA IN ONE OF: R(aVL), S(V1), R(V5), R(V5/V6)+S(V1)] ABNORMAL ECG WARNING: DATA QUALITY MAY AFFECT INTERPRETATION UNCONFIRMED REPORT Electronically signed by : DARRIAN ERAZO, 03/06/2024 01:21:03
--- NOTE | 2024-02-28 13:42 | ED_ITS ---
Discharge Plan Disposition Patient Disposition: Home, Self-Care Prescriptions Prescriptions: No Action metoprolol succinate 50 mg tablet extended release 24 hr 50 mg PO DAILY ferrous sulfate [FeroSul] 325 mg (65 mg iron) tablet 325 mg PO BID metformin 500 mg tablet 500 mg PO DAILY alprazolam 0.25 mg tablet 0.25 mg PO DAILY PRN (Reason: Anxiety) clopidogrel 75 mg tablet 75 mg PO DAILY Qty: 90 3RF cyanocobalamin (vitamin B-12) 1,000 MCG tablet 1,000 mcg PO DAILY cholecalciferol (vitamin D3) 1,000 UNIT capsule 1,000 unit PO DAILY doxazosin 4 MG tablet 4 mg PO HS glimepiride 2 mg tablet 2 mg PO DAILY simethicone 80 mg tablet,chewable 80 mg PO TID PRN (Reason: abdominal distention) Qty: 30 0RF Referrals Follow up/Referrals: Chris Patel MD [Primary Care Provider] - See instructions Je Lama MD [Staff Physician] - See instructions Activity Restrictions/Add. Instructions Additional Instructions/Restrictions: At this time it was felt you are safe to be discharged home. If new or worsening symptoms please do not hesitate to return the emergency department. If symptoms persist please follow-up with your family doctor as you are able. Please take an 81 mg aspirin every day in addition to your Plavix. We found an enlarged lymph node in your chest that will need to be followed up with your family doctor to keep an eye on it. Your blood vessel in your chest (aorta) is larger than it should be, please follow-up with your family doctor so they can also keep an eye on this and possibly refer you to a vascular surgeon. 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 Lama for continued surveillance. The vascular surgeon at said that we just need to keep an eye on it, keep your blood pressure under control and take aspirin every day in addition to your Plavix. Clinical Impressions Clinical Impression: Enlarged lymph node, Aortic aneurysm, Celiac artery dissection Stand Alone Forms Stand Alone Forms: Transfer Record - ED Discharge ED Provider: Junito Graves Adult HPI <Junito Graves MD - Last Filed: 02/28/24 16:20> General Chief complaint: Chest Pain Stated complaint: lower abd and back pain Time Seen by Provider: 02/28/24 13:42 History of Present Illness HPI narrative: This patient presents for evaluation of epigastric abdominal pain, sensation of bloating Patient reports over 10 days of epigastric abdominal pain and bloating sensation. It is moderate in severity, intermittent, with no identifiable aggravating or alleviating factors. He describes it as dull. He denies any acute changes today outside of time course of symptoms that led to presentation. Previous therapies include simethicone and, upon further questioning, metronidazole for recent diagnosis of C difficile which was discovered on stool study approximately 10 days ago. He has been compliant with this medication and is near completion of the course of this antibiotic. He reports to me that he did not get better and get worse again in regard to the onset of his symptoms being concurrent with a diagnosis of C. difficile. He states to me that his reason for presentation was that he is hoping to receive an endoscopy at some point and has had trouble getting in contact with his primary care physician. He does report decreased p.o. intake and occasional presyncope however no syncopal or presyncopal events today. Denies remaining back pain or urinary symptoms. Patient is unsure of other daily medications, but, per chart review, takes dual antiplatelet therapy, beta-weston, metformin, as well as alprazolam 3 times daily for anxiety. No sick contacts, no recent travel, denies any nausea, nor hematemesis. Denies any black or dark or tarry stools. Denies any constipation. Of note, patient has myriad of comorbidities including CAD, type 2 diabetes, history of pulmonary embolism, and CKD Please note that above description of symptoms, in this electronic medical record under categorization of recalled from ER triage doctor by RN are reflective of an initial nursing assessment, however, is not reflective of my full history and physical exam that was personally taken and clarified. Consequentially, this preceding description of symptoms, which may include the patient's categorized chief complaint in the EMR, do not reflect my personal clinical impression, and the ultimate description of history of present illness and patient stated complaints should be deferred to this section of the note. Unless stated otherwise or congruent with this section of the note, additional signs, symptoms, or incongruence should be interpreted as inaccurate with my clinical impression. Related Data Home Medications Medication Instructions Recorded Confirmed cholecalciferol (vitamin D3) 25 1,000 unit PO DAILY Supplement 02/27/19 02/17/24 mcg (1,000 unit) capsule cyanocobalamin (vitamin B-12) 1,000 mcg PO DAILY Supplement 02/27/19 02/17/24 1,000 mcg tablet doxazosin 4 mg tablet 4 mg PO HS Hypertension 02/27/19 02/17/24 alprazolam 0.25 mg tablet 0.25 mg PO DAILY PRN Anxiety 11/15/19 02/17/24 metoprolol succinate 50 mg 50 mg PO DAILY HTN 08/14/22 02/17/24 tablet,extended release 24 hr ferrous sulfate 325 mg (65 mg 325 mg PO BID . 03/18/23 02/17/24 iron) tablet (FeroSul) metformin 500 mg tablet 500 mg PO DAILY 05/21/23 02/17/24 glimepiride 2 mg tablet 2 mg PO DAILY 02/17/24 02/17/24 Previous Rx's Medication Instructions Recorded clopidogrel 75 mg tablet 75 mg PO DAILY ANTI-PLATELET #90 11/15/19 tabs simethicone 80 mg chewable tablet 80 mg PO TID PRN abdominal 02/17/24 distention #30 tabs Allergies Allergy/AdvReac Type Severity Reaction Status Date / Time Penicillins Allergy Intermediate I-HIVES Verified 02/17/24 14:54 Sulfa (Sulfonamide Allergy Intermediate SORES IN Verified 02/17/24 14:54 Antibiotics) MOUTH [facility] <Junito Graves MD - Last Filed: 02/28/24 16:20> [facility] Disclaimer: The information contained in this section may have been updated after the patient was seen, as this information can be updated by other users. Medical History Abnormal EKG Abnormal result of cardiovascular function study Abnormal stress test Angina, class IV Benign prostatic hyperplasia Encounter for pre-operative cardiovascular clearance Family history of heart disease Near syncope Osteoarthritis Surgical History Hx of heart artery stent Hx of inguinal hernia repair Family History Other Family history of hypertension Family history of myocardial infarction Social History Smoking Status: Never smoker second hand exposure: No alcohol intake: never substance use type: denies use current occupational status: retired Travel in the last 8 weeks: None household members: spouse housing: house lives independently: Yes marital status: current occupational exposures/hazards: No caffeine: Yes special patrick needs: No agree to transfusion: No do you feel safe at home: Yes victim of physical abuse: No victim of emotional abuse: No victim of sexual abuse: No would you like helpful sources: No <Junito Graves MD - Last Filed: 02/28/24 16:20> ROS Obtained: Yes other As per HPI Physical Exam <Junito Graves MD - Last Filed: 02/28/24 16:20> General General appearance: alert and in no apparent distress Head Head exam: atraumatic and normocephalic Eye Eye exam: Present normal appearance Neck Neck exam: Present normal inspection Chest Chest inspection: Present normal inspection and symmetric chest wall rise Respiratory Respiratory exam: Present normal lung sounds bilaterally; Absent respiratory distress Cardiovascular Cardiovascular exam: Present regular rate and normal rhythm Abdominal Exam Abdominal exam: Present soft Abdominal tenderness: Present epigastrium and moderate Neurological Exam Neurological exam: Present alert and oriented X3 Psychiatric Psychiatric exam: Present normal affect and normal mood Skin Skin exam: Present warm and dry Medical Decision Making <Junito Graves MD - Last Filed: 02/28/24 16:20> Medical Records Medical records reviewed: Yes I reviewed the patient's medical records. Henrique Inquiry Pt receiving controlled substance: No Vital Signs: 02/28/24 13:11 02/28/24 13:49 02/28/24 14:00 Temperature 98.4 F Temperature Source Oral Pulse Rate 55 L 53 L Pulse Rate [Right Radial] 55 L Respiratory Rate 20 8 L Blood Pressure 187/89 H Blood Pressure [Right Arm] 182/81 H Blood Pressure Mean Blood Pressure Mean [Right Arm] 114 02 Sat by Pulse Oximetry 97 98 Oxygen Delivery Method Room Air Room Air 02/28/24 14:30 02/28/24 15:06 02/28/24 15:30 Temperature Temperature Source Pulse Rate 57 L 62 54 L Pulse Rate [Right Radial] Respiratory Rate 10 L 16 12 Blood Pressure 184/89 H 185/88 H 179/83 H Blood Pressure [Right Arm] Blood Pressure Mean 114 Blood Pressure Mean [Right Arm] 02 Sat by Pulse Oximetry 98 98 97 Oxygen Delivery Method Room Air Room Air 02/28/24 16:01 Temperature Temperature Source Pulse Rate 51 L Pulse Rate [Right Radial] Respiratory Rate 13 Blood Pressure 178/79 H Blood Pressure [Right Arm] Blood Pressure Mean Blood Pressure Mean [Right Arm] 02 Sat by Pulse Oximetry 94 L Oxygen Delivery Method Room Air Lab Data Lab Results 02/28/24 13:40: PT 11.1, INR 1.03, Urine Color Yellow, Urine Appearance Clear, Urine pH 6.0, Ur Specific [place] 1.010, Urine Protein Negative, Urine Glucose (UA) Negative, Urine Ketones Negative, Urine Blood Trace-i, Urine Nitrate Negative, Urine Bilirubin Negative, Urine Urobilinogen 0.2, Ur Leukocyte Esterase Negative, Urine RBC Occasional, Urine WBC None, Ur Squamous Epith Cells None, Urine Bacteria None 02/28/24 13:48: WBC 5.0, RBC 3.64 L, Hgb 11.2 L, Hct 35.4 L, MCV 97.3 H, MCH 30.9, MCHC 31.7 L, RDW 13.4, Plt Count 227, MPV 8.1, Neut % (Auto) 66.2, Lymph % (Auto) 23.3, Bacon % (Auto) 7.7, Eos % (Auto) 1.7, Baso % (Auto) 1.0, Neut # (Auto) 3.3, Lymph # (Auto) 1.2, Bacon # (Auto) 0.4, Eos # (Auto) 0.1, Baso # (Auto) 0.1, Sodium 137, Potassium 4.0, Chloride 106, Carbon Dioxide 26, Anion Gap 9.0, BUN 33 H, Creatinine 2.00 H, Estimated Creat Clear 27, Estimated GFR 32 L, Est GFR ( Amer) 38 L, Glucose 175 H, Calcium 9.0, Total Bilirubin 0.8, AST 33, ALT 22, Alkaline Phosphatase 51, Troponin I < 0.01, Total Protein 6.5, Albumin 3.6, Globulin 2.9, Albumin/Globulin Ratio 1.2, Lipase 132 02/28/24 16:12: Lactate 1.1 02/28/24 13:48 02/28/24 13:48 Orders (Tests/Meds): ED MEDICATIONS Generic Name Dose Route Start Last Admin Trade Name Freq PRN Reason Stop Dose Admin Sodium Chloride 10 ml 02/28/24 14:45 02/28/24 14:47 Sodium Chloride 0.9% 10ml Syr (Rad Only) IV 03/29/24 14:44 10 ml NEEDED PRN Administration Maintain IV Site Discontinued Medications Generic Name Dose Route Start Last Admin Trade Name Freq PRN Reason Stop Dose Admin Iopamidol 100 ml 02/28/24 14:45 02/28/24 14:47 Iopamidol-370 (76%);100ml Bottle IV 02/28/24 14:46 100 ml ONCE ONE Administration Sodium Chloride 50 ml 02/28/24 14:45 02/28/24 14:47 0.9 % Sodium Chloride 50 Ml Vial IV 02/28/24 14:46 50 ml ONCE ONE Administration ORDERS Category Date Time Status CT angio abdomen pelvis Stat Cat Scan 02/28/24 13:[address] angio chest - dissection Stat Cat Scan 02/28/24 13:55 Completed XR chest 2V Stat Exams 02/28/24 13:50 Completed Complete Blood Count Auto Diff Stat Lab 02/28/24 13:48 Completed Comprehensive Metabolic Panel Stat Lab 02/28/24 13:48 Completed Lactic Acid Stat Lab 02/28/24 16:12 Completed Lipase Stat Lab 02/28/24 13:48 Completed PT INR [Prothrombin Time INR] Stat Lab 02/28/24 13:40 Completed Troponin I Q3H Lab 02/28/24 13:48 Completed Troponin I Q3H Lab 02/28/24 17:00 Ordered Troponin I Q3H Lab 02/28/24 20:00 Ordered UA [Urinalysis and Microscopic] Stat Lab 02/28/24 13:40 Completed HEART Score History (anamnesis): Slightly suspicious ECG: Non-specific disturbance Age: >65 years Risk factors: Atherosclerosis history Troponin: </= normal limit HEART Score: 5 Medical Decision Narrative: Patient with history and exam per above presenting for evaluation of several days of epigastric abdominal pain Diagnoses considered include dissection, mesenteric ischemia, ACS, PE, antibiotic side effect, gastritis, among others ED workup and treatment included: CBC, CMP, lipase, troponins, chest x-ray two- view, CTA chest, CTA abdomen and pelvis, 500 cc LR Labs were independently interpreted by me, significant for hemoglobin 11.2, consistent with prior, creatinine at baseline at 2.0, initial troponin undetectable Imaging is pending at this time. Care was transferred to incoming physician <Erich Gerber MD - Last Filed: 02/28/24 17:11> Vital Signs: 02/28/24 13:11 02/28/24 13:49 02/28/24 14:00 Temperature 98.4 F Temperature Source Oral Pulse Rate 55 L 53 L Pulse Rate [Right Radial] 55 L Respiratory Rate 20 8 L Blood Pressure 187/89 H Blood Pressure [Right Arm] 182/81 H Blood Pressure Mean Blood Pressure Mean [Right Arm] 114 02 Sat by Pulse Oximetry 97 98 Oxygen Delivery Method Room Air Room Air 02/28/24 14:30 02/28/24 15:06 02/28/24 15:30 Temperature Temperature Source Pulse Rate 57 L 62 54 L Pulse Rate [Right Radial] Respiratory Rate 10 L 16 12 Blood Pressure 184/89 H 185/88 H 179/83 H Blood Pressure [Right Arm] Blood Pressure Mean 114 Blood Pressure Mean [Right Arm] 02 Sat by Pulse Oximetry 98 98 97 Oxygen Delivery Method Room Air Room Air 02/28/24 16:01 Temperature Temperature Source Pulse Rate 51 L Pulse Rate [Right Radial] Respiratory Rate 13 Blood Pressure 178/79 H Blood Pressure [Right Arm] Blood Pressure Mean Blood Pressure Mean [Right Arm] 02 Sat by Pulse Oximetry 94 L Oxygen Delivery Method Room Air Lab Data Lab Results 02/28/24 13:40: PT 11.1, INR 1.03, Urine Color Yellow, Urine Appearance Clear, Urine pH 6.0, Ur Specific [place] 1.010, Urine Protein Negative, Urine Glucose (UA) Negative, Urine Ketones Negative, Urine Blood Trace-i, Urine Nitrate Negative, Urine Bilirubin Negative, Urine Urobilinogen 0.2, Ur Leukocyte Esterase Negative, Urine RBC Occasional, Urine WBC None, Ur Squamous Epith Cells None, Urine Bacteria None 02/28/24 13:48: WBC 5.0, RBC 3.64 L, Hgb 11.2 L, Hct 35.4 L, MCV 97.3 H, MCH 30.9, MCHC 31.7 L, RDW 13.4, Plt Count 227, MPV 8.1, Neut % (Auto) 66.2, Lymph % (Auto) 23.3, Bacon % (Auto) 7.7, Eos % (Auto) 1.7, Baso % (Auto) 1.0, Neut # (Auto) 3.3, Lymph # (Auto) 1.2, Bacon # (Auto) 0.4, Eos # (Auto) 0.1, Baso # (Auto) 0.1, Sodium 137, Potassium 4.0, Chloride 106, Carbon Dioxide 26, Anion Gap 9.0, BUN 33 H, Creatinine 2.00 H, Estimated Creat Clear 27, Estimated GFR 32 L, Est GFR ( Amer) 38 L, Glucose 175 H, Calcium 9.0, Total Bilirubin 0.8, AST 33, ALT 22, Alkaline Phosphatase 51, Troponin I < 0.01, Total Protein 6.5, Albumin 3.6, Globulin 2.9, Albumin/Globulin Ratio 1.2, Lipase 132 02/28/24 16:12: Lactate 1.1 Orders (Tests/Meds): ED MEDICATIONS Generic Name Dose Route Start Last Admin Trade Name Freq PRN Reason Stop Dose Admin Sodium Chloride 10 ml 02/28/24 14:45 02/28/24 14:47 Sodium Chloride 0.9% 10ml Syr (Rad Only) IV 03/29/24 14:44 10 ml NEEDED PRN Administration Maintain IV Site Discontinued Medications Generic Name Dose Route Start Last Admin Trade Name Freq PRN Reason Stop Dose Admin Iopamidol 100 ml 02/28/24 14:45 02/28/24 14:47 Iopamidol-370 (76%);100ml Bottle IV 02/28/24 14:46 100 ml ONCE ONE Administration Sodium Chloride 50 ml 02/28/24 14:45 02/28/24 14:47 0.9 % Sodium Chloride 50 Ml Vial IV 02/28/24 14:46 50 ml ONCE ONE Administration ORDERS Category Date Time Status CT angio abdomen pelvis Stat Cat Scan 02/28/24 13:[address] angio chest - dissection Stat Cat Scan 02/28/24 13:55 Completed XR chest 2V Stat Exams 02/28/24 13:50 Completed Complete Blood Count Auto Diff Stat Lab 02/28/24 13:48 Completed Comprehensive Metabolic Panel Stat Lab 02/28/24 13:48 Completed Lactic Acid Stat Lab 02/28/24 16:12 Completed Lipase Stat Lab 02/28/24 13:48 Completed PT INR [Prothrombin Time INR] Stat Lab 02/28/24 13:40 Completed Troponin I Q3H Lab 02/28/24 13:48 Completed Troponin I Q3H Lab 02/28/24 17:00 Ordered Troponin I Q3H Lab 02/28/24 20:00 Ordered UA [Urinalysis and Microscopic] Stat Lab 02/28/24 13:40 Completed HEART Score HEART Score: 5 Medical Decision Narrative: Patient with history and exam per above presenting for evaluation of several days of epigastric abdominal pain Diagnoses considered include dissection, mesenteric ischemia, ACS, PE, antibiotic side effect, gastritis, among others ED workup and treatment included: CBC, CMP, lipase, troponins, chest x-ray two- view, CTA chest, CTA abdomen and pelvis, 500 cc LR Labs were independently interpreted by me, significant for hemoglobin 11.2, consistent with prior, creatinine at baseline at 2.0, initial troponin undetectable Imaging is pending at this time. Care was transferred to incoming physician Erich Gerber: Upon assumption of care patient was hemodynamically stable. Workup thus far reviewed by me, hematologic labs are nonactionable, no leukocytosis, stable anemia, no coagulopathy, stable CKD, no critical electrolyte abnormality, initial troponin undetectably low. Urinalysis interpreted by me not consistent with infection. CTA chest remarkable for unruptured aneurysm of the ascending aorta 4.1 x 4.2 cm, no evidence of PE, a pathologic node 2.59 x 1.1 cm in the preaortic region, no evidence of dissection. 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 The case was discussed with [facility] Dr. Regalado and Dr. Mitchell regarding management. Vascular surgeon recommends dual antiplatelet therapy, outpatient surveillance every 6 months with imaging and better control of blood pressure on an outpatient basis. Upon repeat evaluation patient was hemodynamically stable, well-appearing and underwent p.o. trial and was successful. Given this patient is appropriate for discharge at this time we will follow-up with Dr. Lama on an outpatient basis. Critical Care <Junito Graves MD - Last Filed: 02/28/24 16:20> Critical Care Time Critical Care Time: No
--- NOTE | 2024-02-28 13:50 | XR_ITS ---
PROCEDURE INFORMATION: Exam: XR Chest Exam date and time: 02/28/2024 1:55 PM Age: 89 years old Clinical indication: Pain; Chest pressure; Additional info: Chest pain TECHNIQUE: Imaging protocol: Radiologic exam of the chest. Views: 2 views. COMPARISON: CR XR CHEST 2V 04/15/2023 3:57 AM FINDINGS: Tubes, catheters and devices: Cardiac loop recorder device. Lungs: Unremarkable. No consolidation. Pleural spaces: Unremarkable. No pleural effusion. No pneumothorax. Heart/Mediastinum: Unremarkable. No cardiomegaly. Vasculature: Atherosclerosis. Bones/joints: Degenerative changes of the spine. Intraperitoneal space: Right upper quadrant clips. IMPRESSION: No acute findings.
--- NOTE | 2024-02-28 13:55 | CT_ITS ---
PROCEDURE INFORMATION: Exam: CTA Chest With Contrast Exam date and time: 02/28/2024 2:45 PM Age: 89 years old Clinical indication: Chest wall pain; Additional info: Chest pain, epigastric pain TECHNIQUE: Imaging protocol: Computed tomographic angiography of the chest with contrast. Exam focused on the arteries. 3D rendering (Not supervised by radiologist): MIP and/or 3D reconstructed images were created by the technologist. Radiation optimization: All CT scans at this facility use at least one of these dose optimization techniques: automated exposure control; mA and/or kV adjustment per patient size (includes targeted exams where dose is matched to clinical indication); or iterative reconstruction. Contrast material: ISOVUE 370; Contrast volume: 100 ml; Contrast route: INTRAVENOUS (IV); COMPARISON: CT CHEST WO CON 08/24/2022 4:03 PM FINDINGS: Pulmonary arteries: No evidence of pulmonary embolus to the segmental level. Aorta: Unruptured aneurysm of the ascending aorta 4.1 x 4.2 cm. No dissection of the aorta. Lungs: Bibasilar atelectasis Pleural spaces: Unremarkable. No pneumothorax. No pleural effusion. Heart: There is calcification of the mitral valve annulus. Coronary arteries: Coronary artery calcifications may indicate coronary artery disease. Lymph nodes: Pathologic node in the preaortic region 2.59 x 1.1 cm. Bones/joints: Healed right clavicle fracture Soft tissues: Unremarkable. IMPRESSION: 1. No evidence of pulmonary embolus to the segmental level. 2. Unruptured aneurysm of the ascending aorta 4.1 x 4.2 cm. 3. Pathologic node in the preaortic region 2.59 x 1.1 cm. 4. No dissection of the aorta.
--- NOTE | 2024-02-28 13:55 | CT_ITS ---
PROCEDURE INFORMATION: Exam: CTA Abdomen and Pelvis With Contrast Exam date and time: 02/28/2024 2:45 PM Age: 89 years old Clinical indication: Abdominal pain; Epigastric; Additional info: Abdominal pain, epigastric TECHNIQUE: Imaging protocol: Computed tomographic angiography of the abdomen and pelvis with contrast. Exam focused on the arteries. 3D rendering (Not supervised by radiologist): MIP and/or 3D reconstructed images were created by the technologist. Radiation optimization: All CT scans at this facility use at least one of these dose optimization techniques: automated exposure control; mA and/or kV adjustment per patient size (includes targeted exams where dose is matched to clinical indication); or iterative reconstruction. Contrast material: ISOVUE; Contrast volume: 100 ml; Contrast route: INTRAVENOUS (IV); COMPARISON: CT ABDOMEN PELVIS W CON 04/15/2023 4:13 AM FINDINGS: Aorta: No aortic aneurysm. No aortic dissection. 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 Series 8, image 102. Then there is a short segment of dissection in the proximal aspect of the celiac artery. (series 4, image 64; series 8, image 102 and 103) This is followed by post dissection dilatation measuring 13 mm (series 4, image 60). The dissection was not evident in April 2023. the dilatation measured 12 mm. Mild stenosis in the proximal SMA Renal arteries: No occlusion or significant stenosis. Right iliac arteries: No occlusion or significant stenosis. Left iliac arteries: No occlusion or significant stenosis. Liver: No mass. Gallbladder and bile ducts: Cholecystectomy Pancreas: Unremarkable. No mass. No ductal dilation. Spleen: Unremarkable. No splenomegaly. Adrenal glands: Unremarkable. No mass. Kidneys and ureters: Simple cysts in both kidneys . Largest right kidney 4 cm . No follow-up imaging recommended . There is no evidence of renal or ureteral calcifications. Stomach and bowel: 3.5 cm collection of air and debris projecting off of the duodenum. Most likely represents duodenal diverticulum., Less likely duodenal ulcer. No obstruction Appendix: No evidence of appendicitis. Intraperitoneal space: Unremarkable. No free air. No significant fluid collection. Lymph nodes: Unremarkable. No enlarged lymph nodes. Urinary bladder: Unremarkable. No mass. Reproductive: Unremarkable as visualized. Bones/joints: No acute fracture. Soft tissues: Unremarkable. 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 Series 8, image 102. Then there is a short segment of dissection in the proximal aspect of the celiac artery. (series 4, image 64; series 8, image 102 and 103) This is followed by post dissection dilatation measuring 13 mm (series 4, image 60). The dissection was not evident in April 2023. the dilatation measured 12 mm.
[2024-02-28 13:59] LABS: Chloride 106 mmol/L (98-107); Sodium 137 mmol/L (136-145)
[2024-02-28 14:02] LABS: Alanine Aminotransferase 22 U/L (12-78); Albumin Level 3.6 g/dl (3.5-5.0); Albumin/Globulin Ratio 1.2 (1.1-1.8); Alkaline Phosphatase 51 U/L (38-126); Aspartate Amino Transferase 33 U/L (17-59); Bilirubin,Total 0.8 mg/dl (0.2-1.3); Blood Urea Nitrogen 33 mg/dl (9-20); Carbon Dioxide 26 mmol/L (22.0-30.0); Creatinine Clearance Estimated 27 mL/min (50-200); Estimated Glomerular Filt Rate 32 ml/min (>60); GFR (African American) 38 ML/MIN (>60); Globulin 2.9 g/dL (1.3-3.2); Total Protein,Serum 6.5 g/dl (6.3-8.2)
[2024-02-28 14:03] LABS: Glucose 175 mg/dl (74-100)
--- NOTE | 2024-02-28 14:04 | PC.NURSE ---
PT GONE TO RAD VIA WHEELCHAIR
[2024-02-28 14:09] LABS: Lipase 132 U/L (23-300)
--- NOTE | 2024-02-28 14:09 | PC.NURSE ---
PT RETURNED FROM RAD
[2024-02-28 14:11] LABS: Basophils # 0.1 K/mm3 (0-0.2); Eosinophils # 0.1 K/mm3 (0.0-0.4); Eosinophils % 1.7 % (0.1-12.0); Hematocrit 35.4 % (42.0-52.0); Hemoglobin 11.2 g/dL (14.1-18.0); Lymphocytes # 1.2 K/mm3 (0.7-4.5); Lymphocytes % 23.3 % (10-50); Mean Corpuscular HGB Conc 31.7 g/dL (31.8-35.4); Mean Corpuscular Hemoglobin 30.9 pg (27.0-31.2); Mean Corpuscular Volume 97.3 fl (80-94); Mean Platelet Volume 8.1 fl (7.4-10.4); Monocytes # 0.4 K/mm3 (0.1-1.0); Monocytes % 7.7 % (1.7-9.3); Neutrophils # 3.3 K/mm3 (1.8-7.8); Neutrophils % 66.2 % (37.0-80.0); Platelet Count 227 K/mm3 (142-424); Red Blood Count 3.64 M/mm3 (4.60-6.20); Red Cell Distribution Width 13.4 % (11.5-17.5)
[2024-02-28 14:11] LABS: Microscopic, Urine URINE MICROSCOPIC (MICROSCOPIC)
[2024-02-28 14:14] LABS: Appearance,Urine CLEAR (Clear); Bilirubin,Urine Negative (Negative); Blood, Urine TRACE-I (Negative); Color,Urine YELLOW (Yellow); Glucose,Urine (UA) Negative (Negative); Ketones,Urine Negative (Negative); Leukocyte Esterase,Urine Negative (Negative); Nitrate,Urine Negative (Negative); Protein,Urine Negative (Negative); Urobilinogen,Urine 0.2 EU/dl (0.2)
[2024-02-28 14:15] LABS: Troponin I < 0.01 ng/ml (0.00-0.034)
[2024-02-28 14:28] LABS: RBC,Urine Occasional #/hpf (0-3)
[2024-02-28] MEDS: IOPAMIDOL-370 (76%);100ML BOTTLE 100 ML IV (14:47)
[2024-02-28] MEDS: SODIUM CHLORIDE 0.9% 10ML SYR (RAD ONLY) 10 ML IV (14:47)
[2024-02-28] MEDS: 0.9 % SODIUM CHLORIDE 50 ML VIAL IV (14:47)
--- NOTE | 2024-02-28 14:57 | HMH.ITSTN ---
pt given fluids prior to CT scan due to low GFR.
--- NOTE | 2024-02-28 15:59 | PC.NURSE ---
DR FELTON SPEAKING WITH [facility]
--- NOTE | 2024-02-28 16:03 | PC.NURSE ---
IMAGES POWER SHARED WITH [facility]
--- NOTE | 2024-02-28 16:07 | PC.NURSE ---
1048 SPOKE WITH CAROLYN AT [facility]
--- NOTE | 2024-02-28 16:10 | PC.NURSE ---
DR FELTON AT [facility] FOR PT EVAL AND UPDATE ON POC
[2024-02-28 16:15] LABS: INR 1.03 (0.9-1.1); Prothrombin Time 11.1 seconds (10.1-12.5)
[2024-02-28 16:29] LABS: Lactic Acid 1.1 mmol/L (0.7-2.1)
--- NOTE | 2024-02-28 16:32 | PC.NURSE ---
DR FELTON SPEAKING WITH [facility]
== END 2024-02-28 17:22 | disposition home or self-care (01) ==
PROVIDERS: Emergency Medicine; Emergency Provider Emergency Medicine; PCP Family Medicine
DX: R10.13 Epigastric pain (principal); I77.79 Dissection of other specified artery; I71.9 Aortic aneurysm of unspecified site, without rupture; R59.9 Enlarged lymph nodes, unspecified; R00.1 Bradycardia, unspecified; I44.0 Atrioventricular block, first degree
CPT/HCPCS: 36415; 71046; 71275; 74174; 80053; 81001; 83605; 83690; 84484; 85025; 85610; 93005; 99285; Q9967

== ENCOUNTER 2024-03-14 15:29 | Outpatient (CLI) | payer MEDICARE, SELFPAY ==
[2024-03-14 15:57] LABS: Basophils % 0.8 % (0.1-2.0); Eosinophils # 0.1 K/mm3 (0.0-0.4); Eosinophils % 2.9 % (0.1-12.0); Hematocrit 36.3 % (42.0-52.0); Hemoglobin 11.7 g/dL (14.1-18.0); Lymphocytes # 1.1 K/mm3 (0.7-4.5); Lymphocytes % 27.2 % (10-50); Mean Corpuscular HGB Conc 32.2 g/dL (31.8-35.4); Mean Corpuscular Volume 96.3 fl (80-94); Mean Platelet Volume 7.4 fl (7.4-10.4); Monocytes # 0.3 K/mm3 (0.1-1.0); Monocytes % 8.4 % (1.7-9.3); Neutrophils # 2.5 K/mm3 (1.8-7.8); Neutrophils % 60.6 % (37.0-80.0); Platelet Count 219 K/mm3 (142-424); Red Blood Count 3.77 M/mm3 (4.60-6.20); Red Cell Distribution Width 13.5 % (11.5-17.5); White Blood Count 4.1 K/mm3 (4.8-10.8)
[2024-03-14 16:41] LABS: Alanine Aminotransferase 12 U/L (12-78); Albumin Level 3.9 g/dl (3.5-5.0); Alkaline Phosphatase 53 U/L (38-126); Anion Gap 8.4 mEq/L (5-15); Aspartate Amino Transferase 26 U/L (17-59); Bilirubin,Direct 0.2 mg/dl (0.0-0.4); Bilirubin,Indirect 0.6 mg/dL (0.0-0.9); Bilirubin,Total 0.8 mg/dl (0.2-1.3); Bilirubin,Unconjugated 0.6 mg/dL (0.0-1.1); Blood Urea Nitrogen 30 mg/dl (9-20); Calcium 9.1 mg/dl (8.4-10.2); Carbon Dioxide 30 mmol/L (22.0-30.0); Chloride 105 mmol/L (98-107); Estimated Glomerular Filt Rate 36 ml/min (>60); GFR (African American) 43 ML/MIN (>60); Glucose 100 mg/dl (74-100); Potassium 4.4 mmoL/L (3.5-5.1); Sodium 139 mmol/L (136-145); Total Protein,Serum 6.5 g/dl (6.3-8.2)
[2024-03-14 16:56] LABS: Free T4 (Free Thyroxine) 1.07 ng/dl (0.78-2.19)
[2024-03-14 17:12] LABS: Thyroid Stimulating Hormone 1.03 uIU/mL (0.465-4.68)
== END 2024-03-14 23:59 | disposition home or self-care (01) ==
LOC: LAB 15:30
PROVIDERS: PCP Family Medicine; Visit Provider Internal Medicine
DX: R06.00 Dyspnea, unspecified (principal); I10 Essential (primary) hypertension; Z86.711 Personal history of pulmonary embolism; N28.9 Disorder of kidney and ureter, unspecified; R07.89 Other chest pain; I65.23 Occlusion and stenosis of bilateral carotid arteries; I25.10 Atherosclerotic heart disease of native coronary artery without angina pectoris; E78.2 Mixed hyperlipidemia; K21.9 Gastro-esophageal reflux disease without esophagitis; E11.9 Type 2 diabetes mellitus without complications
CPT/HCPCS: 36415; 80048; 80076; 84439; 84443; 85025

== ENCOUNTER 2024-06-21 07:30 | Day surgery (SDC) | payer MEDICARE, SELFPAY ==
--- NOTE | 2024-06-20 11:53 | SUR.PREOP ---
1153: Unable to LM. Mailbox full.
[2024-06-20 12:03] VITALS: BMI 23.7
[2024-06-21] VITALS (7 sets, daily range): BP systolic 122–143; BP diastolic 60–76; PULSE 49–500; RESP 14–18; TEMP 36.1–36.4; O2SAT 94–99
[2024-06-21 07:59] LABS: POC Glucose,Bedside 197 (70-110)
[2024-06-21] MEDS: LACTATED RINGERS 1000ML 1,000 ML 100 ML IV (07:59)
--- NOTE | 2024-06-21 08:13 | EXP.ANES.CKL ---
[facility] Disclaimer: The information contained in this section may have been updated after the patient was seen, as this information can be updated by other users. Medical History Diabetes Mediastinal lymphadenopathy Abnormal result of cardiovascular function study Osteoarthritis Benign prostatic hyperplasia Encounter for pre-operative cardiovascular clearance Near syncope Family history of heart disease Angina, class IV Abnormal stress test Abnormal EKG Surgical History Hx of inguinal hernia repair Hx of heart artery stent Family History Other Family history of hypertension Family history of myocardial infarction Social History Smoking Status: Never smoker second hand exposure: No alcohol intake: never substance use type: denies use current occupational status: retired Travel in the last 8 weeks: None household members: spouse housing: house lives independently: Yes marital status: current occupational exposures/hazards: No caffeine: No special patrick needs: No agree to transfusion: No do you feel safe at home: Yes victim of physical abuse: No victim of emotional abuse: No victim of sexual abuse: No would you like helpful sources: No [facility] Anesthesia Checklist Patient Identification Patient Identification: Arm Band Structural Data Admitted From: Home Planned Operative Procedure/s: EGD/Colonoscopy Consent for Planned Operative Procedure(s) Verified: Yes Verified Documents: Surgical Consent and History and Physical NPO Status Verified Time NPO: 00:00 Additional verifications Anesthesia Reactions: No Airway Assessment Mallampati Score:: Class II C-Spine Mobility Assessed: Yes TMJ Mobility Assessed: Yes Dentition: Poor Dentition Neurological Assessment Level of Consciousness: Awake, Alert and Appropriate Anesthesia Plan Anesthesia Risk discussed: Yes Anesthesia Plan: Verified ASA Class: III Anesthesia Type: MAC
--- NOTE | 2024-06-21 08:29 | HMH.SCOPE ---
Procedure: Date: 06/21/24 Patient Date of :: 1935 Procedure Performed:: Esophagogastroduodenoscopy with biopsy Colonoscopy with polypectomy Indications:: Anemia Dysphagia History of colon polyps Performing Provider:: Trever Haas MD Referring Provider:: Dr. Patel Sedation:: Monitored anesthesia care Procedure:: After informed consent was obtained the patient was taken to the endoscopy suite. Sedation ensued after the patient was transferred to the left lateral decubitus position. Pulse, blood pressure, and oxygen saturation were monitored throughout the procedure. The endoscope was advanced beyond the duodenal bulb. Retroflexion within the gastric lumen was accomplished. The gastroscope was carefully removed. Digital rectal exam revealed no significant abnormality. The colonoscope was placed in position. The entire colon was evaluated. The colonoscope was carefully removed and the patient was transferred to recovery in stable condition. Please see findings and specimens below for detail. Findings:: Tortuous/patulous esophagus Esophageal dysmotility No definitive mucosal mass/stricture Gastroesophageal junction at 40 cm Small sliding hiatal hernia Mild patchy gastritis Bowel preparation moderate Fairly severe tortuosity of the sigmoid colon Moderate spasticity throughout Sigmoid diverticulosis Hemorrhoidal cushions Multiple polyps (see specimens) Specimens:: Antral biopsy Sessile hepatic flexure polyp (cold snare) 4 adjacent sessile polyps at 60 cm (cold biopsy forceps and cold snare) Polyp at 45 cm (cold snare) 3 adjacent polyps at 40 cm (cold biopsy forceps) Polyp at 20 cm (cold biopsy forceps) Recommendations:: Consider barium swallow and possible modified barium swallow Follow-up pathology Timing of repeat colonoscopy pending ongoing discussion regarding risks and benefits of further evaluation (given age and comorbid medical condition) Complications:: No immediate Estimated blood obtained (mL): 1 Colonoscopy Component Colonoscopy Component Was a colonoscopy performed during today's procedure?: Yes Recommended follow up colonoscopy of at least 10 years?: No If no, follow up colonoscopy recommended in ___ years?: (See above) Reason for not recommending >/= 10 yr follow-up interval?: (See above)
--- NOTE | 2024-06-21 09:39 | P.PNANES_ITS ---
[facility] Anesthesia Record Part I Anesthesia Record I Intake, IV Amount: 700 Hydration: Adequate Estimated blood loss (mL): 10 Urine output (mL): 0 Blood Products used (#): none Blood Pressure: 123/60 SaO2: 97 Pulse Rate: 500 Airway Patency: Patent Respiratory Rate: 14 Temperature: 97.1 F Patient is:: Drowsy and Stable Stable to PACU at:: 09:41
== END 2024-06-21 10:06 | disposition home or self-care (01) ==
PROVIDERS: PCP Family Medicine; Visit Provider Surgery
PROC: 0DJ08ZZ Inspection of Upper Intestinal Tract, Via Natural or Artificial Opening Endoscopic (ICD-10-PCS; CPT 43235; principal; 2024-06-21 08:30)
DX: Z86.010 Personal history of colon polyps (principal); R47.02 Dysphasia; D64.9 Anemia, unspecified; K44.9 Diaphragmatic hernia without obstruction or gangrene; K29.70 Gastritis, unspecified, without bleeding; K57.30 Diverticulosis of large intestine without perforation or abscess without bleeding; K64.9 Unspecified hemorrhoids; D12.3 Benign neoplasm of transverse colon; E11.8 Type 2 diabetes mellitus with unspecified complications; Z79.84 Long term (current) use of oral hypoglycemic drugs
CPT/HCPCS: 43239; 45380; 45385; 82962; 88305; J7120

== ENCOUNTER 2024-07-19 15:00 | Outpatient (RCR) | payer MEDICARE, SELFPAY | END 2024-07-19 15:05 | disposition home or self-care (01) | LOC: PT 15:00 | PROVIDERS: Visit Provider Specialist/Technologist Athletic Trainer | DX: M43.16 Spondylolisthesis, lumbar region (principal) | CPT/HCPCS: 97014; 97110; 97163; G0283 ==

== ENCOUNTER 2024-07-30 11:00 | Emergency (ER) | payer MEDICARE, SELFPAY ==
--- NOTE | 2024-07-30 11:26 | ED_ITS ---
Discharge Plan Disposition Patient Disposition: Home, Self-Care Condition: Good Prescriptions Prescriptions: New cephalexin 500 mg capsule 500 mg PO QID Qty: 40 0RF No Action metformin 500 mg tablet 500 mg PO DAILY alprazolam 0.25 mg tablet 0.25 mg PO DAILY PRN (Reason: Anxiety) clopidogrel 75 mg tablet 75 mg PO DAILY Qty: 90 3RF aspirin [Adult Aspirin Regimen] 81 mg tablet,delayed release (DR/EC) 81 mg PO DAILY cyanocobalamin (vitamin B-12) 1,000 MCG tablet 1,000 mcg PO DAILY cholecalciferol (vitamin D3) 1,000 UNIT capsule 1,000 unit PO DAILY doxazosin 4 MG tablet 4 mg PO HS Probiotic 10 billion cell Capsule 10,000 mmu cells PO DAILY metoprolol succinate [Toprol XL] 25 mg tablet extended release 24 hr 50 mg PO DAILY Referrals Follow up/Referrals: Chris Patel MD [Primary Care Provider] - See instructions Arielle Collins DPM [Staff Physician] - See instructions Activity Restrictions/Add. Instructions Additional Instructions/Restrictions: Rest the extremity, Elevate the extremity as tolerated while you are resting. Take tylenol for pain. Follow up with Dr. Collins (podiatry). I put in a referral but you need to call her office and schedule an appointment. Follow up with your regular doctor. GO TO THE ER FOR ANY WORSENING SYMPTOMS Clinical Impressions Clinical Impression: Closed fracture of phalanx of left second toe, Diabetes Instructions Patient Instructions: Toe Fracture, DI for Toe Fracture, Cephalexin Print Language Print Language: Icelandic Discharge ED Provider: Saeed Aviles [facility] General Stated complaint: AO-07/29/24, pain in L 2nd toe Time Seen by Provider: 07/30/24 11:26 History of Present Illness Provider Complaint: He states that he dropped a trailer ball on his left 2nd toe yesterday. Since then he has had pain, bruising and swelling of that toe. He denies any other injury. He is a diabetic. Related Data Home Medications ?Medication ?Instructions ?Recorded ?Confirmed cholecalciferol (vitamin D3) 25 1,000 unit PO DAILY Supplement 02/27/19 06/29/24 mcg (1,000 unit) capsule cyanocobalamin (vitamin B-12) 1,000 mcg PO DAILY Supplement 02/27/19 06/29/24 1,000 mcg tablet doxazosin 4 mg tablet 4 mg PO HS Hypertension 02/27/19 06/29/24 alprazolam 0.25 mg tablet 0.25 mg PO DAILY PRN Anxiety 11/15/19 06/29/24 metformin 500 mg tablet 500 mg PO DAILY 05/21/23 06/29/24 aspirin 81 mg tablet,delayed 81 mg PO DAILY 03/14/24 06/29/24 release (Adult Aspirin Regimen) Lactobacillus acidophilus 10 10,000 mmu cells PO DAILY 06/21/24 06/29/24 billion cell capsule (Probiotic) metoprolol succinate 25 mg 50 mg PO DAILY 06/21/24 06/29/24 tablet,extended release 24 hr (Toprol XL) Previous Rx's ?Medication ?Instructions ?Recorded clopidogrel 75 mg tablet 75 mg PO DAILY ANTI-PLATELET #90 11/15/19 tabs cephalexin 500 mg capsule 500 mg PO QID #40 caps 07/30/24 Allergies Allergy/AdvReac Type Severity Reaction Status Date / Time Penicillins Allergy Intermediate I-HIVES Verified 06/29/24 10:21 Sulfa (Sulfonamide Allergy Intermediate SORES IN Verified 06/29/24 10:21 Antibiotics) MOUTH PFSH PFSH Disclaimer: The information contained in this section may have been updated after the patient was seen, as this information can be updated by other users. Medical History (Updated 07/30/24 @ 12:24 by Saeed Aviles APRN) Diabetes Mediastinal lymphadenopathy Abnormal result of cardiovascular function study Osteoarthritis Benign prostatic hyperplasia Encounter for pre-operative cardiovascular clearance Near syncope Family history of heart disease Angina, class IV Abnormal stress test Abnormal EKG Surgical History (Updated 06/29/24 @ 10:22 by Kendar Brady, ANAIS) History of colonoscopy Hx of inguinal hernia repair Hx of heart artery stent Family History Other Family history of hypertension Family history of myocardial infarction Social History Smoking Status: Never smoker second hand exposure: No alcohol intake: never substance use type: denies use current occupational status: retired Travel in the last 8 weeks: None household members: spouse housing: house lives independently: Yes marital status: current occupational exposures/hazards: No caffeine: No special patrick needs: No agree to transfusion: No do you feel safe at home: Yes victim of physical abuse: No victim of emotional abuse: No victim of sexual abuse: No would you like helpful sources: No ROS Obtained: Yes All systems reviewed & no additional complaints except as documented Constitutional Constitutional: Denies chills and Denies fever(s) Eyes Eyes: Denies eye discharge ENT Ears, Nose, Mouth, and Throat: Denies dizziness, Denies otalgia and Denies sore throat Cardiovascular Cardiovascular: Denies chest pain Respiratory Respiratory: Denies shortness of breath, Denies chest congestion, Denies cough, Denies stridor and Denies wheezing Gastrointestinal Gastrointestingal: Denies nausea or vomiting Musculoskeletal Musculoskeletal: Reports as per HPI Integumentary/Breasts Skin/Breast: Reports as per HPI Neurologic Neurologic: Denies dizziness and Denies paresthesias Allergic/Immunologic Allergic/Immunologic: Denies wheezing Physical Exam General General appearance: alert and in no apparent distress Head Head exam: atraumatic, normocephalic and normal inspection Eye Eye exam: Present normal appearance, PERRL and EOMI ENT ENT exam: Present normal exam, normal oropharynx, mucous membranes moist, TM's normal bilaterally and normal external ear exam Neck Neck exam: Present normal inspection, full ROM and trachea midline; Absent meningismus or lymphadenopathy Chest Chest inspection: Present normal inspection and symmetric chest wall rise; Absent tenderness Respiratory Respiratory exam: Present normal lung sounds bilaterally; Absent respiratory distress Cardiovascular Cardiovascular exam: Present regular rate and normal rhythm; Absent JVD Abdominal Exam Abdominal exam: Present soft and normal bowel sounds; Absent distention, tenderness or guarding Extremities Exam Extremities exam: Present normal capillary refill; Absent calf tenderness Expanded Lower Extremity Exam Left: Ankle exam: Present normal inspection and full ROM; Absent tenderness Foot/toe exam: Present tenderness, swelling, ecchymosis and subungual hematoma; Absent full ROM, abrasion, laceration, deformity, crepitus, dislocation, erythema, amputation, puncture wound, foreign body, calcaneal tenderness, tenderness at base of 5th metatarsal or nail avulsion Neurovascular/Tendon exam: Present normal capillary refill, normal 2-point discrimination and normal fine/light touch; Absent pulse deficit, motor deficit, sensory deficit, tendon deficit, extremity cold to touch or pallor Gait: observed and limited by pain Back Exam Back exam: Present normal inspection; Absent tenderness Neurological Exam Neurological exam: Present alert and oriented X3 Psychiatric Psychiatric exam: Present normal affect and normal mood Skin Skin exam: Present warm, dry, intact and normal color Lymphatic Lymphatic Findings: no adenopathy Medical Decision Making Medical Records Medical records reviewed: No I reviewed the patient's medical records. Screening: Per USPSTF and CDC recommendations, given the prevalence of disease in our region, it is our hospital?s policy to screen for HIV and viral Hepatitis for all patients aged 18 and over and those with ongoing risk factors. [place] Inquiry Pt receiving controlled substance: No Radiology Data #1: Image(s): Foot/Toes Image Reviewed: Yes I reviewed the patient's radiology image and Yes I have reviewed radiologist's interpretation Preliminary Findings: Abnormal Procedures Risk/Benefits of Procedure(s) Were Explained: Yes Orthopedic Splinting/Casting Injury #1: Side: left Lower Extremity Injury Location: foot Lower Extremity Immobilizer: vanessa tape and applied by nurse/dr bonds Post Cast/Splinting Neuro Status: intact and no change Post Cast/Splinting Vasc Status: intact and no change
[2024-07-30 11:28] VITALS: BP 125/72; PULSE 63; RESP 18; TEMP 36.5; O2SAT 96; BMI 23.4
--- NOTE | 2024-07-30 11:29 | XR_ITS ---
PROCEDURE INFORMATION: Exam: XR Left Foot Exam date and time: 07/30/2024 11:28 AM Age: 89 years old Clinical indication: Injury or trauma; Other: Dropped ball hitch from trailer on toe; Blunt trauma; Foot; Left; Additional info: Pain TECHNIQUE: Imaging protocol: Radiologic exam of the left foot. Views: 3 or more views. COMPARISON: CR XR KNEE LT 4V 12/21/2020 2:25 PM FINDINGS: Bones/joints: Degenerative changes in the tarsometatarsal joints and 1st metatarsophalangeal joint and IP joint. There is no evidence of acute fracture.There is no evidence of malalignment or dislocation. Soft tissues: Normal. IMPRESSION: There is no evidence of acute fracture.There is no evidence of malalignment or dislocation.
[2024-07-30 12:38] VITALS: BP 125/72; PULSE 63; RESP 18; TEMP 36.5; O2SAT 96
== END 2024-07-30 12:39 | disposition home or self-care (01) ==
PROVIDERS: Emergency Provider Nurse Practitioner Family; PCP Family Medicine
DX: S92.505A Nondisplaced unspecified fracture of left lesser toe(s), initial encounter for closed fracture (principal); E11.9 Type 2 diabetes mellitus without complications; W20.8XXA Other cause of strike by thrown, projected or falling object, initial encounter; Y92.9 Unspecified place or not applicable; I20.9 Angina pectoris, unspecified; N40.0 Benign prostatic hyperplasia without lower urinary tract symptoms
CPT/HCPCS: 73630; 99212; 99214; G0463

== ENCOUNTER 2024-09-15 16:38 | Emergency (ER) | payer MEDICARE, SELFPAY ==
[2024-09-15 16:40] VITALS: BP 180/73; PULSE 56; RESP 20; TEMP 36.8; O2SAT 97; BMI 24.0
--- NOTE | 2024-09-15 16:41 | ED_ITS ---
Discharge Plan Disposition Patient Disposition: Home, Self-Care Condition: Good Prescriptions Prescriptions: No Action metformin 500 mg tablet 500 mg PO DAILY ferrous sulfate 325 mg (65 mg iron) tablet,delayed release (DR/EC) 325 mg PO DAILY PreserVision AREDS 4,296 mcg-226 mg-90 mg capsule 1 cap PO BID metoprolol succinate [Toprol XL] 25 mg tablet extended release 24 hr 25 mg PO DAILY Qty: 90 3RF alprazolam 0.25 mg tablet 0.25 mg PO DAILY PRN (Reason: Anxiety) clopidogrel 75 mg tablet 75 mg PO DAILY Qty: 90 3RF aspirin [Adult Aspirin Regimen] 81 mg tablet,delayed release (DR/EC) 81 mg PO DAILY cyanocobalamin (vitamin B-12) 1,000 MCG tablet 1,000 mcg PO DAILY cholecalciferol (vitamin D3) 1,000 UNIT capsule 1,000 unit PO DAILY doxazosin 4 MG tablet 4 mg PO HS Probiotic 10 billion cell Capsule 10,000 mmu cells PO DAILY cephalexin 500 mg capsule 500 mg PO QID Qty: 40 0RF Referrals Follow up/Referrals: Chris Patel MD [Primary Care Provider] - See instructions Activity Restrictions/Add. Instructions Additional Instructions/Restrictions: Follow-up with your PCP and orthopedist for no improvement or worsening signs or symptoms or return to the ER as needed. Clinical Impressions Clinical Impression: Acute pain of right knee Fall Qualifiers: Encounter type: initial encounter Qualified Code(s): W19.XXXA - Unspecified fall, initial encounter Contusion of elbow, right Qualifiers: Encounter type: initial encounter Qualified Code(s): S50.01XA - Contusion of right elbow, initial encounter Print Language Print Language: Bulgarian Discharge ED Provider: Darío Orozco General Adult HPI <LE Harris - Last Filed: 09/15/24 20:16> General Chief complaint: Fall Stated complaint: AO 09/15/24 1530 Fell Injury right arm,elbow,back Time Seen by Provider: 09/15/24 16:41 History of Present Illness HPI narrative: Patient presents for evaluation of a fall. Patient was attempting to stand up and his right knee buckled causing him to fall onto his right side. He did not strike his head he did not lose consciousness however he felt severe pain in the right knee and at the right elbow. He was eventually able to stand and bear weight with assistance. Additionally patient was evaluated by orthopedics in [facility] and received shots in the bilateral knees last week that the patient states has not helped his pain. Patient currently denies chest pain shortness of breath fever chills hemoptysis hematochezia melena nausea vomiting diarrhea but still does endorse right elbow pain and right knee pain and right lumbar paraspinous muscle tenderness Related Data Home Medications ?Medication ?Instructions ?Recorded ?Confirmed cholecalciferol (vitamin D3) 25 1,000 unit PO DAILY Supplement 02/27/19 08/30/24 mcg (1,000 unit) capsule cyanocobalamin (vitamin B-12) 1,000 mcg PO DAILY Supplement 02/27/19 08/30/24 1,000 mcg tablet doxazosin 4 mg tablet 4 mg PO HS Hypertension 02/27/19 08/30/24 alprazolam 0.25 mg tablet 0.25 mg PO DAILY PRN Anxiety 11/15/19 08/30/24 metformin 500 mg tablet 500 mg PO DAILY 05/21/23 08/30/24 aspirin 81 mg tablet,delayed 81 mg PO DAILY 03/14/24 08/30/24 release (Adult Aspirin Regimen) Lactobacillus acidophilus 10 10,000 mmu cells PO DAILY 06/21/24 08/30/24 billion cell capsule (Probiotic) ferrous sulfate 325 mg (65 mg 325 mg PO DAILY 08/30/24 08/30/24 iron) tablet,delayed release vitamins A,C,C-qymx-eivsyq 4,296 1 cap PO BID 08/30/24 08/30/24 mcg-226 mg-90 mg capsule (PreserVision AREDS) Previous Rx's ?Medication ?Instructions ?Recorded clopidogrel 75 mg tablet 75 mg PO DAILY ANTI-PLATELET #90 11/15/19 tabs cephalexin 500 mg capsule 500 mg PO QID #40 caps 07/30/24 metoprolol succinate 25 mg 25 mg PO DAILY #90 tabs 08/30/24 tablet,extended release 24 hr (Toprol XL) Allergies Allergy/AdvReac Type Severity Reaction Status Date / Time Penicillins Allergy Intermediate I-HIVES Verified 08/30/24 14:38 Sulfa (Sulfonamide Allergy Intermediate SORES IN Verified 08/30/24 14:38 Antibiotics) MOUTH PFSH <LE Harris - Last Filed: 09/15/24 20:16> [facility] Disclaimer: The information contained in this section may have been updated after the patient was seen, as this information can be updated by other users. Medical History Diabetes Mediastinal lymphadenopathy Abnormal result of cardiovascular function study Osteoarthritis Benign prostatic hyperplasia Encounter for pre-operative cardiovascular clearance Near syncope Family history of heart disease Angina, class IV Abnormal stress test Abnormal EKG Surgical History History of colonoscopy Hx of inguinal hernia repair Hx of heart artery stent Family History Other Family history of hypertension Family history of myocardial infarction Social History Smoking Status: Never smoker second hand exposure: No alcohol intake: never substance use type: denies use current occupational status: retired Travel in the last 8 weeks: None household members: spouse housing: house lives independently: Yes marital status: current occupational exposures/hazards: No caffeine: No special patrick needs: No agree to transfusion: No do you feel safe at home: Yes victim of physical abuse: No victim of emotional abuse: No victim of sexual abuse: No would you like helpful sources: No Other Medical History Have you received the Flu Vaccine for this season: Yes Have you received the Pneumonia Vaccine: Yes <LE Harris - Last Filed: 09/15/24 20:16> ROS Obtained: Yes Systems reviewed as appropriate & no additional complaints except as documented Physical Exam <LE Harris - Last Filed: 09/15/24 20:16> General General appearance: alert and in no apparent distress Neck Neck exam: Present lymphadenopathy Respiratory Respiratory exam: Present normal lung sounds bilaterally Cardiovascular Cardiovascular exam: Present regular rate Neurological Exam Neurological exam: Present alert and oriented X3 Medical Decision Making <LE Harris - Last Filed: 09/15/24 20:16> Medical Records Medical records reviewed: Yes I reviewed the patient's medical records. Screening: Per USPSTF and CDC recommendations, given the prevalence of disease in our region, it is our hospital?s policy to screen for HIV and viral Hepatitis for all patients aged 18 and over and those with ongoing risk factors. Henrique Inquiry Pt receiving controlled substance: No Vital Signs: 09/15/24 16:40 09/15/24 16:47 09/15/24 16:59 Temperature 98.3 F Temperature Source Oral Pulse Rate 54 L 55 L Pulse Rate [Right Radial] 56 L Respiratory Rate 20 Blood Pressure 180/73 H 196/80 H Blood Pressure [Right Arm] 180/73 H Blood Pressure Mean [Right Arm] 108 Blood Pressure Source Blood Pressure Position 02 Sat by Pulse Oximetry 97 97 97 Oxygen Delivery Method Room Air 09/15/24 18:37 Temperature 98.0 F Temperature Source Oral Pulse Rate 52 L Pulse Rate [Right Radial] Respiratory Rate 16 Blood Pressure 191/83 H Blood Pressure [Right Arm] Blood Pressure Mean [Right Arm] Blood Pressure Source Automatic Cuff Blood Pressure Position Sitting 02 Sat by Pulse Oximetry Oxygen Delivery Method Lab Data Lab results reviewed: Yes I reviewed the patient's lab results. Orders (Tests/Meds): ED MEDICATIONS Discontinued Medications Generic Name Dose Route Start Last Admin Trade Name Freq PRN Reason Stop Dose Admin Acetaminophen 1,000 mg 09/15/24 17:05 09/15/24 17:10 Acetaminophen 500mg Tab PO 09/15/24 17:06 1,000 mg ONCE ONE Administration Lidocaine 1 each 09/15/24 17:05 09/15/24 17:10 Lidocaine 5% Transdermal Patch TP 09/15/24 17:06 1 each ONCE ONE Administration ORDERS Category Date Time Status CT bony pelvis Stat Cat Scan 09/15/24 17:[address] lumbar spine wo con Stat Cat Scan 09/15/24 17:01 Completed Elbow XR right minimum 3 views [XR elbow RT min 3V] Exams 09/15/24 17:01 Completed Stat Femur XR right 2 views [XR femur RT 2V] Stat Exams 09/15/24 17:01 Completed Forearm XR right 2 views [XR forearm RT 2V] Stat Exams 09/15/24 17:01 Completed Humerus XR right [XR humerus RT] Stat Exams 09/15/24 17:01 Completed Tibia/fibula XR right 2 views [XR tibia fibula RT 2V] Exams 09/15/24 17:01 Completed Stat XR knee RT 3V Stat Exams 09/15/24 17:01 Completed Medical Decision Narrative: In summary patient is a 89-year-old male who presents to the emergency department for evaluation of a fall. Patient is hemodynamically stable upon arrival, afebrile. Physical exam is remarkable for tenderness about the right knee on palpation and attempted range of motion testing. Given this I did not fully attempt to mobilize his lower extremity but he has no bony deformities. He is neurovascularly intact distally. He has mild tenderness to palpation at the right olecranon but actually does have full range of motion and is ne urovascular intact distally. Patient has right lumbar paraspinous musculature on palpation without bony deformity.. Differential diagnosis includes contusion versus strain versus sprain versus fracture etc. Initial workup will be conducted with CT scan lumbar spine and pelvis with plain film x-ray on his right upper and lower extremity. Initial interventions include Tylenol and Lidoderm patch for now. Initial workup reviewed by me informal interpretation shows no acute bony injury or other acute trauma. Upon repeat evaluation patient report moderate improvement in his constitutional symptoms. Given this patient is appropriate for discharge with follow-up with his PCP for no improvement or worsening signs or symptoms or return to ER as needed <Darío Orozco MD - Last Filed: 09/15/24 20:17> Vital Signs: 09/15/24 16:40 09/15/24 16:47 09/15/24 16:59 Temperature 98.3 F Temperature Source Oral Pulse Rate 54 L 55 L Pulse Rate [Right Radial] 56 L Respiratory Rate 20 Blood Pressure 180/73 H 196/80 H Blood Pressure [Right Arm] 180/73 H Blood Pressure Mean [Right Arm] 108 Blood Pressure Source Blood Pressure Position 02 Sat by Pulse Oximetry 97 97 97 Oxygen Delivery Method Room Air 09/15/24 18:37 Temperature 98.0 F Temperature Source Oral Pulse Rate 52 L Pulse Rate [Right Radial] Respiratory Rate 16 Blood Pressure 191/83 H Blood Pressure [Right Arm] Blood Pressure Mean [Right Arm] Blood Pressure Source Automatic Cuff Blood Pressure Position Sitting 02 Sat by Pulse Oximetry Oxygen Delivery Method Orders (Tests/Meds): ED MEDICATIONS Discontinued Medications Generic Name Dose Route Start Last Admin Trade Name Freq PRN Reason Stop Dose Admin Acetaminophen 1,000 mg 09/15/24 17:05 09/15/24 17:10 Acetaminophen 500mg Tab PO 09/15/24 17:06 1,000 mg ONCE ONE Administration Lidocaine 1 each 09/15/24 17:05 09/15/24 17:10 Lidocaine 5% Transdermal Patch TP 09/15/24 17:06 1 each ONCE ONE Administration ORDERS Category Date Time Status CT bony pelvis Stat Cat Scan 09/15/24 17:[address] lumbar spine wo con Stat Cat Scan 09/15/24 17:01 Completed Elbow XR right minimum 3 views [XR elbow RT min 3V] Exams 09/15/24 17:01 Completed Stat Femur XR right 2 views [XR femur RT 2V] Stat Exams 09/15/24 17:01 Completed Forearm XR right 2 views [XR forearm RT 2V] Stat Exams 09/15/24 17:01 Completed Humerus XR right [XR humerus RT] Stat Exams 09/15/24 17:01 Completed Tibia/fibula XR right 2 views [XR tibia fibula RT 2V] Exams 09/15/24 17:01 Completed Stat XR knee RT 3V Stat Exams 09/15/24 17:01 Completed Medical Decision Narrative: In summary patient is a 89-year-old male who presents to the emergency department for evaluation of a fall. Patient is hemodynamically stable upon arrival, afebrile. Physical exam is remarkable for tenderness about the right knee on palpation and attempted range of motion testing. Given this I did not fully attempt to mobilize his lower extremity but he has no bony deformities. He is neurovascularly intact distally. He has mild tenderness to palpation at the right olecranon but actually does have full range of motion and is neurovascular intact distally. Patient has right lumbar paraspinous musculature on palpation without bony deformity.. Differential diagnosis includes contusion versus strain versus sprain versus fracture etc. Initial workup will be conducted with CT scan lumbar spine and pelvis with plain film x-ray on his right upper and lower extremity. Initial interventions include Tylenol and Lidoderm patch for now. Initial workup reviewed by me informal interpretation shows no acute bony injury or other acute trauma. Upon repeat evaluation patient report moderate improvement in his constitutional symptoms. Given this patient is appropriate for discharge with follow-up with his PCP for no improvement or worsening signs or symptoms or return to ER as needed I was consulted by the CORNEL, and we discussed the complexity of the problems being addressed. I approved the treatment and management plan for this patient's care in the Emergency Department, thus performing a substantive portion of the medical decision making. Darío Orozco MD Critical Care <LE Harris - Last Filed: 09/15/24 20:16> Critical Care Time Critical Care Time: No
[2024-09-15 16:47] VITALS: BP 180/73; PULSE 54; O2SAT 97
[2024-09-15 16:59] VITALS: BP 196/80; PULSE 55; O2SAT 97
--- NOTE | 2024-09-15 17:01 | XR_ITS ---
PROCEDURE INFORMATION: Exam: XR Right Knee Exam date and time: 09/15/2024 5:11 PM Age: 89 years old Clinical indication: Injury or trauma; Fall; Blunt trauma; Knee; Right; Additional info: Fall elbow pain TECHNIQUE: Imaging protocol: Radiologic exam of the right knee. Views: 3 views. Total images: 3 COMPARISON: CR XR FEMUR RT 2V 09/15/2024 5:11 PM FINDINGS: Bones/joints: There are mild degenerative changes of the knee joint, predominantly involving the medial joint compartment. No evidence of acute fracture or dislocation. Soft tissues: Soft tissues are within normal limits. Vasculature: Mild atherosclerotic disease. IMPRESSION: 1. There are mild degenerative changes of the knee joint, predominantly involving the medial joint compartment. 2. No evidence of acute fracture or dislocation.
--- NOTE | 2024-09-15 17:01 | CT_ITS ---
PROCEDURE INFORMATION: Exam: CT Pelvis Without Contrast, Skeleton Exam date and time: 09/15/2024 5:14 PM Age: 89 years old Clinical indication: Injury or trauma; Fall; Blunt trauma (contusions or hematomas); Additional info: Fall right low back pain TECHNIQUE: Imaging protocol: Computed tomography of the pelvis without contrast. Exam focused on the skeleton. Total images: 874 Radiation optimization: All CT scans at this facility use at least one of these dose optimization techniques: automated exposure control; mA and/or kV adjustment per patient size (includes targeted exams where dose is matched to clinical indication); or iterative reconstruction. COMPARISON: CT ABDOMEN PELVIS W CON 04/15/2023 4:13 AM FINDINGS: Bones/joints: No evidence of acute fracture or dislocation. Degenerative changes of both hips. Soft tissues: Soft tissues are within normal limits. IMPRESSION: 1. No evidence of acute fracture or dislocation. 2. Degenerative changes of both hips.
--- NOTE | 2024-09-15 17:01 | XR_ITS ---
PROCEDURE INFORMATION: Exam: XR Right Tibia and Fibula Exam date and time: 09/15/2024 5:11 PM Age: 89 years old Clinical indication: Injury or trauma; Fall; Blunt trauma; Lower leg; Right; Additional info: Fall elbow pain TECHNIQUE: Imaging protocol: Radiologic exam of the right tibia and fibula. Views: 2 views. Total images: 3 COMPARISON: CR XR KNEE RT 3V 09/15/2024 5:11 PM FINDINGS: Bones/joints: No evidence of acute fracture or dislocation. Soft tissues: Soft tissues are within normal limits. Vasculature: Mild atherosclerotic disease. IMPRESSION: No evidence of acute fracture or dislocation.
--- NOTE | 2024-09-15 17:01 | XR_ITS ---
PROCEDURE INFORMATION: Exam: XR Right Elbow Exam date and time: 09/15/2024 5:11 PM Age: 89 years old Clinical indication: Injury or trauma; Fall; Blunt trauma (contusions or hematomas); Elbow; Right; Additional info: Fall elbow pain TECHNIQUE: Imaging protocol: Radiologic exam of the right elbow. Views: 3 or more views. Total images: 3 COMPARISON: CR XR FOREARM RT 2V 09/15/2024 5:11 PM FINDINGS: Bones/joints: No evidence of acute fracture or dislocation. Soft tissues: Soft tissues are within normal limits. IMPRESSION: No evidence of acute fracture or dislocation.
--- NOTE | 2024-09-15 17:01 | XR_ITS ---
PROCEDURE INFORMATION: Exam: XR Right Forearm Exam date and time: 09/15/2024 5:11 PM Age: 89 years old Clinical indication: Injury or trauma; Fall; Blunt trauma (contusions or hematomas); Arm, lower; Right; Additional info: Fall elbow pain TECHNIQUE: Imaging protocol: Radiologic exam of the right forearm. Views: 2 views. Total images: 2 COMPARISON: CR XR ELBOW RT MIN 3V 09/15/2024 5:11 PM FINDINGS: Bones/joints: No evidence of acute fracture or dislocation. Soft tissues: Soft tissues are within normal limits. IMPRESSION: No evidence of acute fracture or dislocation.
--- NOTE | 2024-09-15 17:01 | XR_ITS ---
PROCEDURE INFORMATION: Exam: XR Right Femur Exam date and time: 09/15/2024 5:11 PM Age: 89 years old Clinical indication: Injury or trauma; Fall; Blunt trauma; Thigh or upper leg; Right; Additional info: Fall elbow pain TECHNIQUE: Imaging protocol: Radiologic exam of the right femur. Views: 2 views. Total images: 4 COMPARISON: CR XR KNEE RT 3V 09/15/2024 5:11 PM FINDINGS: Bones/joints: No evidence of acute fracture or dislocation. Degenerative changes of the right knee and right hip. Soft tissues: Soft tissues are within normal limits. Vasculature: Mild atherosclerotic disease. IMPRESSION: 1. No evidence of acute fracture or dislocation. 2. Degenerative changes of the right knee and right hip.
--- NOTE | 2024-09-15 17:01 | CT_ITS ---
PROCEDURE INFORMATION: Exam: CT Lumbar Spine Without Contrast Exam date and time: 09/15/2024 5:12 PM Age: 89 years old Clinical indication: Injury or trauma; Additional info: Fall right low back pain TECHNIQUE: Imaging protocol: Computed tomography of the lumbar spine without contrast. Total images: 287 Radiation optimization: All CT scans at this facility use at least one of these dose optimization techniques: automated exposure control; mA and/or kV adjustment per patient size (includes targeted exams where dose is matched to clinical indication); or iterative reconstruction. COMPARISON: CT ABDOMEN PELVIS W CON 04/15/2023 4:13 AM FINDINGS: Bones/joints: The lumbar spine demonstrates mild degenerative changes at multiple levels. Bones are osteopenic. Vasculature: Mild atherosclerotic disease. Soft tissues: Unremarkable. IMPRESSION: 1. The lumbar spine demonstrates mild degenerative changes at multiple levels. No evidence of acute fracture. 2. Bones are osteopenic.
--- NOTE | 2024-09-15 17:01 | XR_ITS ---
PROCEDURE INFORMATION: Exam: XR Right Humerus Exam date and time: 09/15/2024 5:11 PM Age: 89 years old Clinical indication: Injury or trauma; Fall; Blunt trauma (contusions or hematomas); Arm, upper; Right; Additional info: Fall elbow pain TECHNIQUE: Imaging protocol: Radiologic exam of the right humerus. Views: 2 or more views. Total images: 2 COMPARISON: CR XR ELBOW RT MIN 3V 09/15/2024 5:11 PM FINDINGS: Bones/joints: No evidence of acute fracture or dislocation. Degenerative changes of the glenohumeral and acromioclavicular joints. Soft tissues: Soft tissues are within normal limits. IMPRESSION: 1. No evidence of acute fracture or dislocation. 2. Degenerative changes of the glenohumeral and acromioclavicular joints.
[2024-09-15] MEDS: ACETAMINOPHEN 500MG TAB 1000 MG PO (17:10)
[2024-09-15] MEDS: LIDOCAINE 5% TRANSDERMAL PATCH 1 EACH TP (17:10)
--- NOTE | 2024-09-15 17:10 | PC.NURSE ---
patient gone to [facility] at this time.
--- NOTE | 2024-09-15 17:30 | PC.NURSE ---
patient back in room at this time
[2024-09-15 18:37] VITALS: BP 191/83; PULSE 52; RESP 16; TEMP 36.7; O2SAT 99
== END 2024-09-15 18:39 | disposition home or self-care (01) ==
PROVIDERS: Emergency Provider Emergency Medicine; PCP Family Medicine
DX: S50.01XA Contusion of right elbow, initial encounter (principal); W19.XXXA Unspecified fall, initial encounter
CPT/HCPCS: 72131; 72192; 73060; 73080; 73090; 73552; 73562; 73590; 99284

== ENCOUNTER 2024-10-24 16:20 | Emergency (ER) | payer MEDICARE, SELFPAY ==
[2024-10-24 16:55] VITALS: BP 131/89; PULSE 64; RESP 18; TEMP 37.1; O2SAT 97; BMI 24.1
--- NOTE | 2024-10-24 17:16 | EXP.UTC ---
Discharge Plan Disposition Patient Disposition: Home, Self-Care Condition: Good Prescriptions Prescriptions: New doxycycline hyclate 100 mg capsule 100 mg PO BID 7 Days Qty: 14 0RF No Action metformin 500 mg tablet 500 mg PO DAILY ferrous sulfate 325 mg (65 mg iron) tablet,delayed release (DR/EC) 325 mg PO DAILY metoprolol succinate [Toprol XL] 25 mg tablet extended release 24 hr 25 mg PO DAILY Qty: 90 3RF alprazolam 0.25 mg tablet 0.25 mg PO DAILY PRN (Reason: Anxiety) clopidogrel 75 mg tablet 75 mg PO DAILY Qty: 90 3RF aspirin [Adult Aspirin Regimen] 81 mg tablet,delayed release (DR/EC) 81 mg PO DAILY cyanocobalamin (vitamin B-12) 1,000 MCG tablet 1,000 mcg PO DAILY cholecalciferol (vitamin D3) 1,000 UNIT capsule 1,000 unit PO DAILY doxazosin 4 MG tablet 4 mg PO HS Probiotic 10 billion cell Capsule 10,000 mmu cells PO DAILY Referrals Follow up/Referrals: Chris Patel MD [Primary Care Provider] - See instructions Activity Restrictions/Add. Instructions Additional Instructions/Restrictions: Separate your dose of Doxycycline from your Ferrous Sulfate by at least 2 hours Follow up with your Family Doctor if no improvement or any worsening of symptoms Return if needed Straight to ER if any life threatening symptoms Follow up with your Eye Doctor Clinical Impressions Clinical Impression: Sinusitis Qualifiers: Sinusitis location: unspecified location Chronicity: unspecified Qualified Code(s): J32.9 - Chronic sinusitis, unspecified Instructions Patient Instructions: Sinusitis, DI for Sinusitis Print Language Print Language: [place]guill[place] Discharge ED Provider: Leyla Neff [facility] General Stated complaint: right eye redness, sinus pressure Mode of Arrival: Ambulatory Source of Information: Patient Limitations: No Limitations Time Seen by Provider: 10/24/24 17:16 Description of Symptoms (Recalled from Triage Doc. by RN): PATIENT C/O SINUS PRESSURE AND COUGH X 3 DAYS HEENT Symptoms (Recalled from RN notes): Yes Resp Symptoms (Recalled from RN notes): Yes Skin Symptoms (Recalled from RN notes): No MS Symptoms (Recalled from RN notes): No Functional Status (Recalled from RN notes): WNL History of Present Illness Provider Complaint: Patient states that he has been having sinus congestion and pressure for a couple of weeks but worse over the last few days States that he has been blowing his nose alot and getting thick nasty stuff out States that at times he has had blood in his mucous States that he has had a little cough and making his eyes look red so today he came in to get checked to get something for his sinus infection Related Data Home Medications ?Medication ?Instructions ?Recorded ?Confirmed cholecalciferol (vitamin D3) 25 1,000 unit PO DAILY Supplement 02/27/19 10/24/24 mcg (1,000 unit) capsule cyanocobalamin (vitamin B-12) 1,000 mcg PO DAILY Supplement 02/27/19 10/24/24 1,000 mcg tablet doxazosin 4 mg tablet 4 mg PO HS Hypertension 02/27/19 10/24/24 alprazolam 0.25 mg tablet 0.25 mg PO DAILY PRN Anxiety 11/15/19 10/24/24 metformin 500 mg tablet 500 mg PO DAILY 05/21/23 10/24/24 aspirin 81 mg tablet,delayed 81 mg PO DAILY 03/14/24 10/24/24 release (Adult Aspirin Regimen) Lactobacillus acidophilus 10 10,000 mmu cells PO DAILY 06/21/24 10/24/24 billion cell capsule (Probiotic) ferrous sulfate 325 mg (65 mg 325 mg PO DAILY 08/30/24 10/24/24 iron) tablet,delayed release Previous Rx's ?Medication ?Instructions ?Recorded clopidogrel 75 mg tablet 75 mg PO DAILY ANTI-PLATELET #90 11/15/19 tabs metoprolol succinate 25 mg 25 mg PO DAILY #90 tabs 08/30/24 tablet,extended release 24 hr (Toprol XL) doxycycline hyclate 100 mg capsule 100 mg PO BID 7 days #14 caps 10/24/24 Allergies Allergy/AdvReac Type Severity Reaction Status Date / Time Penicillins Allergy Intermediate I-HIVES Verified 08/30/24 14:38 Sulfa (Sulfonamide Allergy Intermediate SORES IN Verified 08/30/24 14:38 Antibiotics) MOUTH Worker's Comp Is this a Worker's Comp case?: No [facility] Disclaimer: The information contained in this section may have been updated after the patient was seen, as this information can be updated by other users. Medical History Diabetes Mediastinal lymphadenopathy Abnormal result of cardiovascular function study Osteoarthritis Benign prostatic hyperplasia Encounter for pre-operative cardiovascular clearance Near syncope Family history of heart disease Angina, class IV Abnormal stress test Abnormal EKG Surgical History History of colonoscopy Hx of inguinal hernia repair Hx of heart artery stent Family History Other Family history of hypertension Family history of myocardial infarction Social History Smoking Status: Never smoker second hand exposure: No alcohol intake: never substance use type: denies use current occupational status: retired Travel in the last 8 weeks: None household members: spouse housing: house lives independently: Yes marital status: current occupational exposures/hazards: No caffeine: No special patrick needs: No agree to transfusion: No do you feel safe at home: Yes victim of physical abuse: No victim of emotional abuse: No victim of sexual abuse: No would you like helpful sources: No Have you lived/traveled outside [place] in past 30 days?: No Contact w/someone who lives/traveled outside US past 30 days?: No Exposure to someone with infectious disease in past 14 days?: No Do you have a fever (greater than 100.4 F or 38 C)?: No Have you tested positive for COVID-19: No Exposed to someone with COVID-19 in past 14 days?: No Do you have a sore throat?: No Do you have a cough?: No Do you have any weakness?: No Do you have any diarrhea?: No Are you experiencing any unusual bleeding?: No Do you have any muscle aches/pain?: No Do you have any abdominal pain?: No Are you experiencing loss of taste or smell?: No ROS Obtained: Yes All systems reviewed & no additional complaints except as documented and Yes Systems reviewed as appropriate & no additional complaints except as documented Constitutional Constitutional: Reports system reviewed and no additional complaints, except as documented and Reports as per HPI Eyes Eyes: Reports system reviewed and no additional complaints, except as documented and Reports as per HPI ENT Ears, Nose, Mouth, and Throat: Reports system reviewed and no additional complaints, except as documented, Reports as per HPI, Reports sinus pain and Reports sinus pressure Cardiovascular Cardiovascular: Reports system reviewed and no additional complaints, except as documented and Reports as per HPI Respiratory Respiratory: Reports system reviewed and no additional complaints, except as documented, Reports as per HPI and Reports cough Physical Exam General General appearance: alert and in no apparent distress Eye Eye exam: Present other (small red areas noted in conjunctiva ) ENT ENT exam: Present mucous membranes moist Expanded ENT Exam Nose exam: Present sinus tenderness Throat exam: Present other (PND noted) Respiratory Respiratory exam: Present normal lung sounds bilaterally; Absent respiratory distress or wheezes Cardiovascular Cardiovascular exam: Present regular rate, normal rhythm and normal heart sounds Neurological Exam Neurological exam: Present alert, oriented X3 and normal gait Medical Decision Making Medical Records Screening: Per USPSTF and CDC recommendations, given the prevalence of disease in our region, it is our hospital?s policy to screen for HIV and viral Hepatitis for all patients aged 18 and over and those with ongoing risk factors. Henrique Inquiry Pt receiving controlled substance: No Henrique was queried for this patient: No Vital Signs: 10/24/24 16:55 Temperature 98.7 F Temperature Source Oral Pulse Rate [Left Brachial] 64 Respiratory Rate 18 Blood Pressure [Left Arm] 131/89 Blood Pressure Mean [Left Arm] 103 Blood Pressure Source [Left Arm] Automatic Cuff Blood Pressure Position [Left Arm] Sitting 02 Sat by Pulse Oximetry 97 Oxygen Delivery Method Room Air Medical Decision Narrative: Patient states that he has taken Doxy in the past without complications or reactions, spoke with pharmacy recommended Doxy 100mg BID
[2024-10-24 17:40] VITALS: BP 131/89; PULSE 64; RESP 18; TEMP 37.1; O2SAT 97
== END 2024-10-24 17:42 | disposition home or self-care (01) ==
PROVIDERS: Emergency Provider Nurse Practitioner; PCP Family Medicine
DX: J32.9 Chronic sinusitis, unspecified (principal)
CPT/HCPCS: 99213; G0381

== ENCOUNTER 2024-11-07 15:32 | Emergency (ER) | payer MEDICARE, SELFPAY ==
[2024-11-07 17:18] VITALS: BP 114/68; PULSE 71; RESP 19; TEMP 36.9; O2SAT 99; BMI 24.1
--- NOTE | 2024-11-07 17:20 | ED_ITS ---
Discharge Plan Disposition Patient Disposition: Home, Self-Care Condition: Good Prescriptions Prescriptions: New azithromycin [Zithromax Z-Ryan] 250 mg tablet See Rx Instructions .ROUTE .COMPLEX 5 Days Qty: 6 0RF Rx Instructions: For 250 mg dose pack: take 500 mg today (day 1), then 250 mg for 4 days (days 2-5) No Action metformin 500 mg tablet 500 mg PO DAILY ferrous sulfate 325 mg (65 mg iron) tablet,delayed release (DR/EC) 325 mg PO DAILY metoprolol succinate [Toprol XL] 25 mg tablet extended release 24 hr 25 mg PO DAILY Qty: 90 3RF alprazolam 0.25 mg tablet 0.25 mg PO DAILY PRN (Reason: Anxiety) clopidogrel 75 mg tablet 75 mg PO DAILY Qty: 90 3RF aspirin [Adult Aspirin Regimen] 81 mg tablet,delayed release (DR/EC) 81 mg PO DAILY cyanocobalamin (vitamin B-12) 1,000 MCG tablet 1,000 mcg PO DAILY cholecalciferol (vitamin D3) 1,000 UNIT capsule 1,000 unit PO DAILY doxazosin 4 MG tablet 4 mg PO HS Probiotic 10 billion cell Capsule 10,000 mmu cells PO DAILY glimepiride 4 mg tablet 4 mg PO DAILY loratadine 10 mg tablet 10 mg PO DAILY Referrals Follow up/Referrals: Chris Patel MD [Primary Care Provider] - See instructions Activity Restrictions/Add. Instructions Additional Instructions/Restrictions: Take medication as prescribed Continue taking the Loratadine Follow up with your Family Doctor if symptoms do not improve Straight to ER if any life threatening symptoms Clinical Impressions Clinical Impression: Sinusitis Instructions Patient Instructions: Sinusitis, Sinus Headache Print Language Print Language: Kyrgyz Discharge ED Provider: Leyla Neff [facility] General Stated complaint: cough, keshia,weak body aches Mode of Arrival: Ambulatory Source of Information: Patient and Spouse Limitations: No Limitations Time Seen by Provider: 11/07/24 17:20 Description of Symptoms (Recalled from Triage Doc. by RN): PATIENT C/O SINUS CONGESTION AND BODY ACHES HEENT Symptoms (Recalled from RN notes): Yes Resp Symptoms (Recalled from RN notes): No Skin Symptoms (Recalled from RN notes): No MS Symptoms (Recalled from RN notes): No Functional Status (Recalled from RN notes): WNL History of Present Illness Provider Complaint: Patient states that he was seen and treated a few weeks ago for sinus infection and it did get better but then came back States that he has been having sinus pain and pressure, pressure behind his eyes and drainage in the back of his throat States that he has been taking loratadine but hasnt helped Related Data Home Medications ?Medication ?Instructions ?Recorded ?Confirmed cholecalciferol (vitamin D3) 25 1,000 unit PO DAILY Supplement 02/27/19 11/07/24 mcg (1,000 unit) capsule cyanocobalamin (vitamin B-12) 1,000 mcg PO DAILY Supplement 02/27/19 11/07/24 1,000 mcg tablet doxazosin 4 mg tablet 4 mg PO HS Hypertension 02/27/19 11/07/24 alprazolam 0.25 mg tablet 0.25 mg PO DAILY PRN Anxiety 11/15/19 11/07/24 metformin 500 mg tablet 500 mg PO DAILY 05/21/23 11/07/24 aspirin 81 mg tablet,delayed 81 mg PO DAILY 03/14/24 11/07/24 release (Adult Aspirin Regimen) Lactobacillus acidophilus 10 10,000 mmu cells PO DAILY 06/21/24 11/07/24 billion cell capsule (Probiotic) ferrous sulfate 325 mg (65 mg 325 mg PO DAILY 08/30/24 11/07/24 iron) tablet,delayed release glimepiride 4 mg tablet 4 mg PO DAILY 11/07/24 11/07/24 loratadine 10 mg tablet 10 mg PO DAILY 11/07/24 11/07/24 Previous Rx's ?Medication ?Instructions ?Recorded clopidogrel 75 mg tablet 75 mg PO DAILY ANTI-PLATELET #90 11/15/19 tabs metoprolol succinate 25 mg 25 mg PO DAILY #90 tabs 08/30/24 tablet,extended release 24 hr (Toprol XL) azithromycin 250 mg tablet See Rx Instructions PO .COMPLEX 5 11/07/24 (Zithromax Z-Ryan) days #6 tabs Allergies Allergy/AdvReac Type Severity Reaction Status Date / Time Penicillins Allergy Intermediate I-HIVES Verified 08/30/24 14:38 Sulfa (Sulfonamide Allergy Intermediate SORES IN Verified 08/30/24 14:38 Antibiotics) MOUTH Worker's Comp Is this a Worker's Comp case?: No [facility] Disclaimer: The information contained in this section may have been updated after the patient was seen, as this information can be updated by other users. Medical History Diabetes Mediastinal lymphadenopathy Abnormal result of cardiovascular function study Osteoarthritis Benign prostatic hyperplasia Encounter for pre-operative cardiovascular clearance Near syncope Family history of heart disease Angina, class IV Abnormal stress test Abnormal EKG Surgical History History of colonoscopy Hx of inguinal hernia repair Hx of heart artery stent Family History Other Family history of hypertension Family history of myocardial infarction Social History Smoking Status: Never smoker second hand exposure: No alcohol intake: never substance use type: denies use current occupational status: retired Travel in the last 8 weeks: None household members: spouse housing: house lives independently: Yes marital status: current occupational exposures/hazards: No caffeine: No special patrick needs: No agree to transfusion: No do you feel safe at home: Yes victim of physical abuse: No victim of emotional abuse: No victim of sexual abuse: No would you like helpful sources: No Have you lived/traveled outside US in past 30 days?: No Contact w/someone who lives/traveled outside US past 30 days?: No Exposure to someone with infectious disease in past 14 days?: No Do you have a fever (greater than 100.4 F or 38 C)?: No Have you tested positive for COVID-19: No Exposed to someone with COVID-19 in past 14 days?: No Do you have a sore throat?: No Do you have a cough?: Yes Do you have any weakness?: Yes Do you have any diarrhea?: No Are you experiencing any unusual bleeding?: No Do you have any muscle aches/pain?: Yes Do you have any abdominal pain?: No Are you experiencing loss of taste or smell?: No ROS Obtained: Yes All systems reviewed & no additional complaints except as documented and Yes Systems reviewed as appropriate & no additional complaints except as documented Constitutional Constitutional: Reports system reviewed and no additional complaints, except as documented, Reports as per HPI and Reports headache(s) (sinus headache) Eyes Eyes: Reports system reviewed and no additional complaints, except as documented and Reports as per HPI ENT Ears, Nose, Mouth, and Throat: Reports system reviewed and no additional complaints, except as documented, Reports as per HPI, Reports headache(s) (sinus headache), Reports sinus pain and Reports sinus pressure Cardiovascular Cardiovascular: Reports system reviewed and no additional complaints, except as documented and Reports as per HPI Respiratory Respiratory: Reports system reviewed and no additional complaints, except as documented, Reports as per HPI and Reports cough (on and off) Gastrointestinal Gastrointestingal: Reports system reviewed and no additional complaints, except as documented and as per HPI Neurologic Neurologic: Reports headache(s) (sinus headache) Physical Exam General General appearance: alert and in no apparent distress ENT ENT exam: Present mucous membranes moist Expanded ENT Exam Nose exam: Present sinus tenderness Throat exam: Present other (PND noted) Respiratory Respiratory exam: Present normal lung sounds bilaterally; Absent respiratory distress or wheezes Cardiovascular Cardiovascular exam: Present regular rate, normal rhythm and normal heart sounds Abdominal Exam Abdominal exam: Present soft and normal bowel sounds; Absent distention or tenderness Neurological Exam Neurological exam: Present alert, oriented X3 and normal gait Medical Decision Making Medical Records Screening: Per USPSTF and CDC recommendations, given the prevalence of disease in our region, it is our hospital?s policy to screen for HIV and viral Hepatitis for all patients aged 18 and over and those with ongoing risk factors. Henrique Inquiry Pt receiving controlled substance: No Henrique was queried for this patient: No Vital Signs: 11/07/24 17:18 Temperature 98.5 F Temperature Source Oral Pulse Rate [Left Brachial] 71 Respiratory Rate 19 Blood Pressure [Left Arm] 114/68 Blood Pressure Mean [Left Arm] 83 Blood Pressure Source [Left Arm] Automatic Cuff Blood Pressure Position [Left Arm] Sitting 02 Sat by Pulse Oximetry 99 Oxygen Delivery Method Room Air Medical Decision Narrative: Patient states that he has taken azithromycin in the past without complications or reactions
[2024-11-07 17:45] VITALS: BP 114/68; PULSE 71; RESP 19; TEMP 36.9; O2SAT 99
== END 2024-11-07 17:47 | disposition home or self-care (01) ==
PROVIDERS: Emergency Provider Nurse Practitioner; PCP Family Medicine
DX: J32.9 Chronic sinusitis, unspecified (principal); R05.9 Cough, unspecified; R09.81 Nasal congestion; R53.1 Weakness; M79.10 Myalgia, unspecified site; R51.9 Headache, unspecified; J34.89 Other specified disorders of nose and nasal sinuses
CPT/HCPCS: 99212; G0381